=== PATIENT | male | born 1955 | race Caucasian/White ===

== ENCOUNTER → 2016-09-03 | Outpatient (CLI) | payer OTHER ==
[2016-09-03 05:55] LABS: BASOPHILS # (AUTO) 0.07 10*3/UL; BASOPHILS % (AUTO) 1.7 % (0-1); EOSINOPHILS % (AUTO) 6.1 % (0-8); HEMATOCRIT 37.7 % (42.0-52.0); HEMOGLOBIN 11.6 g/dL (14.0-18.0); IMM GRAN % (AUTO) 0.7 % (0-5); IMM GRAN# (AUTO) 0.03 10*3/UL; LYMPHOCYTES # (AUTO) 0.99 10*3/uL; LYMPHOCYTES % (AUTO) 23.4 % (10-50); MEAN CORPUSCULAR HEMOGLOBIN 23.3 PG (27-31); MEAN CORPUSCULAR HGB CONC 30.8 g/dL (33-37); MEAN PLATELET VOLUME 8.8 FL (7.4-12.2); MONOCYTES # (AUTO) 0.52 10*3/UL (0.3-0.8); MONOCYTES % (AUTO) 12.3 % (5-15); NEUTROPHILS # (AUTO) 2.36 10*3/UL; NEUTROPHILS % (AUTO) 55.8 % (50-80); RDW COEFFICIENT OF VARIATION 17.7 % (11.5-14.5); RED BLOOD COUNT 4.97 10^6/uL (4.70-6.10); WHITE BLOOD COUNT 4.23 10^3/uL (4.8-10.8)
[2016-09-03 06:07] LABS: ASPARTATE AMINO TRANSFERASE 21 IU/L (21-57); BILIRUBIN,TOTAL 0.5 mg/dL (0.3-1.2); BLOOD UREA NITROGEN 18 mg/dL (7-22); CALCIUM 8.1 mg/dL (8.7-10.7); CHLORIDE 103 meq/L (98-112); CREATININE 0.6 mg/dL (0.70-1.50); EST GLOMERULAR FILTRATION > 60 (>60 ml/min/1.73m(2)); GLUCOSE 80 mg/dL (78-110); HDL CHOLESTEROL 23 mg/dL (40-150); SODIUM 135 meq/L (135-145); TOTAL PROTEIN 5.6 g/dL (6.1-8.0); TRIGLYCERIDES 103 mg/dL (44-200)
[2016-09-03 06:08] LABS: HEMOGLOBIN A1C 4.15 % (4.2-6.0); MEAN BLOOD GLUCOSE (CALC) 52.195 mg/dL
[2016-09-03 06:09] LABS: PLATELET MORPHOLOGY COMMENT NORMAL MORPHOLOGY (NORM)
[2016-09-03 06:14] LABS: RETICULOCYTE PERCENT 2.8 % (0.77-2.36)
[2016-09-03 08:38] LABS: PERCENT IRON SATURATION 14.1 % (14-50)
== END ==
LOC: LAB 05:38
PROVIDERS: ATTEND Internal Medicine
DX: D59.4 Other nonautoimmune hemolytic anemias (principal); E11.9 Type 2 diabetes mellitus without complications; R56.9 Unspecified convulsions; E78.5 Hyperlipidemia, unspecified
CPT/HCPCS: 36415; 80053; 80061; 80177; 82728; 83010; 83036; 83540; 83550; 85025; 85045

== ENCOUNTER → 2016-09-05 | Outpatient (CLI) | payer OTHER | LOC: MMPC 11:11 | PROVIDERS: ATTEND Internal Medicine | DX: D59.4 Other nonautoimmune hemolytic anemias (principal); R56.9 Unspecified convulsions; E11.9 Type 2 diabetes mellitus without complications; I10 Essential (primary) hypertension | CPT/HCPCS: 99214; G0463 ==

== ENCOUNTER 2017-04-05 10:47 | Observation (INO) ==
[2017-04-05 11:42] LABS: BASOPHILS # (AUTO) 0.06 10*3/UL; BASOPHILS % (AUTO) 1.1 % (0-1); EOSINOPHILS # (AUTO) 0.12 10*3/UL; EOSINOPHILS % (AUTO) 2.2 % (0-8); Hematocrit [HCT] 34.5 % (42.0-52.0); Hemoglobin [HGB] 10.7 g/dL (14.0-18.0); LYMPHOCYTES # (AUTO) 0.91 10*3/uL; MEAN CORPUSCULAR HEMOGLOBIN 23.2 PG (27-31); MEAN CORPUSCULAR VOLUME 74.8 FL (80-90); MEAN PLATELET VOLUME 9.4 FL (7.4-12.2); MONOCYTES % (AUTO) 14.7 % (5-15); NEUTROPHILS # (AUTO) 3.49 10*3/UL; NEUTROPHILS % (AUTO) 64.3 % (50-80); RED BLOOD COUNT 4.61 10^6/uL (4.70-6.10)
[2017-04-05] MEDS ORDERED: NORMAL SALINE 10 ML SYRINGE FLUSH IVP PRN ×2 (11:47→14:11)
[2017-04-05 11:52] LABS: BLOOD UREA NITROGEN 15 mg/dL (7-22)
[2017-04-05 12:01] LABS: PLATELET MORPHOLOGY COMMENT NORMAL MORPHOLOGY (NORM); RBC MORPHOLOGY COMMENT NORMAL MORPHOLOGY (NORM); WBC MORPHOLOGY COMMENT NORMAL MORPHOLOGY (NORM)
[2017-04-05] MEDS: Sodium Chloride 0.9% 1,000 ML PRIMARY IV ONE ×2 (12:25→15:03)
--- NOTE | 2017-04-05 12:59 | DI ---
VENOUS DOPPLER ULTRASOUND OF THE LEFT LOWER EXTREMITY, 04/05/2017 11:41 AM: Clinical History: Increased swelling of the left lower extremity. Previous Exam: None. Technique: 2D real-time imaging is supplemented with color Doppler ultrasound. Compression and augmen tation maneuvers were performed. The deep venous system from the groin to the popliteal fossa is norm al. The greater saphenous vein is normal. There is edema in the subcutaneous fat of the lower leg. Reading: Negative venous Doppler ultrasound of the left lower extremity.
--- NOTE | 2017-04-05 13:40 | DI ---
LEFT FOOT, 04/05/2017 1:01 PM: Clinical History: Left foot pain. Previous Exam: None at this facility. 3 views are submitted. There is no fracture or dislocation. There is osteoporosis. Extensive soft tis igor edema is present along the dorsal aspect of the foot and along the medial aspect of the distal ti sia and fibula and the hindfoot. No soft tissue gas or radiopaque foreign body is identified. Readin. Soft tissue swelling without evidence of a fracture or dislocation. 2. Osteoporosis.
[2017-04-05] MEDS ORDERED: BISACODYL 5 MG TABLET PO PRN (14:11)
[2017-04-05] MEDS ORDERED: LIDOCAINE W/ SODIUM BICARB 0.5 ML SYR SUBD PRN (14:11)
[2017-04-05] MEDS ORDERED: HYDROmorphone 2 MG/1 ML IVP PRN (14:11)
[2017-04-05] MEDS ORDERED: BISACODYL 10 MG SUPPOSITORY RECTAL PRN (14:11)
[2017-04-05] MEDS ORDERED: ONDANSETRON 4 MG/2 ML VIAL IVP PRN (14:11)
[2017-04-05] MEDS ORDERED: Influenza 17-18 Vaccine (6mo+) Quad 60mcg/0.5ml PF IM ONE (14:29)
[2017-04-05] MEDS: ceFAZolin Inj 2 GM in Sodium Chloride 0.9% 100 ML IV SCH ×2 (15:01→23:17)
--- NOTE | 2017-04-05 15:39 | PDOC ---
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 Most likely an initial stages of cellulitis of his extremity. X-ray shows a soft tissue swelling but no bony abnormality. The patient will be admitted for IV antibiotics considering all his comorbidities including Ambien give him being the biggest 1 diabetes Past Medical History Medical History: 1. 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 2. Diabetes mellitus type II. 3. Gout. 4. Hypertension. 5. Hyperlipidemia. 6. Seizure disorder Surgical History: 1. Colonoscopy. 2. Cataract extraction. Pertinent Family History: States that his father passed on due to heart issues. His mother is alive and apparently in the assisted at this time. Past Social History: Quit smoking over a year ago now. Drinks occasional alcohol. Lives alone. No children. Tobacco Use: Current Some Day Smoker In the Past 12 Months, Have Used or Abuse Any of the Following Substance: None Medication / Allergies Home Medications: Home Medications Medication Instructions Recorded Confirmed Type Aspirin [Aspir 81] 81 mg ORAL QD tab 06/19/11 04/05/17 History furosemide 40 mg tablet 40 mg PO BID #60 tab 03/06/17 04/05/17 Rx potassium chloride ER 10 mEq 10 meq PO BID #60 cap 03/06/17 04/05/17 Rx capsule,extended release propranolol 60 mg tablet 60 mg PO BID #180 tab 03/06/17 04/05/17 Rx sulfasalazine 500 mg tablet 1,000 mg PO BID #120 tab 03/06/17 04/05/17 Rx ascorbic acid (vitamin C) 500 mg 500 mg PO QD #90 tab 03/11/17 04/05/17 Rx tablet levetiracetam 500 mg tablet 1,000 mg PO BID #120 tab 03/15/17 04/05/17 Rx ferrous gluconate 324 mg (38 mg 324 mg PO QD #30 tab 03/18/17 04/05/17 Rx iron) tablet omega-3 fatty acids-fish oil 340 1 cap PO DAILY cap 03/18/17 04/05/17 History mg-1,000 mg capsule Allergies/Adverse Reactions: Allergies 3 Allergy/AdvReac Type Severity Reaction Status Date / Time No Known Drug Allergies Allergy NOT Verified 04/05/17 11:25 APPLICABLE Review of Systems - Review of Systems All Systems: Reviewed & No Additional Complaints Except as Stated - Respiratory Respiratory: DENIES: Negative System Review, Cough, Sputum, Dyspnea At Rest, Dyspnea with Exertion, Pleuritic Pain, Hemoptysis, Wheezing, Other, See HPI - Cardiovascular Cardiovascular: DENIES: Negative System Review, Chest Pain, Edema, Syncope, Palpitations, Orthopnea, Paroxysmal Nocturnal Dyspnea, Other, See HPI - Gastrointestinal Gastrointestinal / Abdominal: DENIES: Negative System Review, Nausea, Vomiting, Diarrhea, Constipation, Abdominal Pain, Bloody Stool, Poor Appetite, Heartburn, Regurgitation, Bloating, Lactose Intolerance, Melena, Bright Red Blood per Rectum, Other, See HPI - Musculoskeletal Musculoskeletal: REPORTS: Other (Left lower extremity swelling painful) Exam - Vitals Vital Signs: Vital Signs Temperature 97.6 F Temperature Source Temporal Artery Scan Pulse Rate [Pulse Oximeter 79 Right] Pulse Rate 77 Respiratory Rate 18 Blood Pressure [Left Arm] 113/66 Blood Pressure 126/69 Pulse Ox 95 Oxygen Delivery Method Room Air Height 5 ft 7 in Weight 143 lb - General General Appearance: No Acute Distress, Cooperative - Head Head Exam: Normal Inspection - Eye Eye Exam: POSITIVE: Normal Appearance - Neck Neck Exam: Normal Inspection - Respiratory Respiratory Exam: POSITIVE: Clear to Auscultation - Bilaterally, Breathing Non Labored, Normal To Percussion - Cardiovascular Cardiovascular Exam: POSITIVE: RRR, No Murmur, No Gallops - GI/Abdominal GI/Abdominal Exam: POSITIVE: Non Tender, Non Distended, Soft - Extremities Additional Extremities Exam Details: Positive edema left lower extremity sensitive to touch no DVT - Neurological Neurological Exam: POSITIVE: Alert, Oriented x 3 - Psychiatric Psychiatric Exam: POSITIVE: Normal Affect, Normal Mood Results - Labs CBC and BMP: 04/05/17 11:41 04/05/17 11:41 Assessment and Plan - Patient Problems (1) Cellulitis of left lower extremity Current Visit: Yes Status: Acute Comment: We will start Ancef 2 g IV every 8 check labs in the morning. 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
--- NOTE | 2017-04-05 15:46 | PDOC ---
Lower Extremity Problem HPI - General Chief Complaint: Lower Extremity Problem/Injury Stated Complaint: lower extremety swelling Date Seen by Provider: 04/05/17 Time Seen by Provider: 11:00 Source: POSITIVE: Patient, EMS Exam Limitations: POSITIVE: No limitations Nurse's Notes Reviewed & Considered: Yes EMS Report Reviewed & Considered: Verbal - History of Present Illness Initial Comments: The patient is a 61-year-old male. He is brought to the emergency room by ambulance. Patient states that for the past 2 days he has had progressive pain and swelling to the left lower extremity. He states that for the past 2 days he has not been able to ambulate without supporting himself with a chair due to pain in his left lower leg. Patient lives alone. He called a caregiver that he occasionally sees at the [facility], apparently, who called the ambulance to bring him to the emergency room. Patient denies any falls or trauma. Patient states he had a stroke, apparently a intracranial hemorrhage, at age 14 or 15 which has left him with right-sided weakness and muscle contractions. His right lower extremity distal to the knee, especially over the ankle and the lateral aspect of his left foot is painful and warm. Body Location Affected: REPORTS: Lower Extremity (L) Timing: REPORTS: Gradual, Getting Worse Duration: >24 hours (Approximately 2 days) Severity: Moderate Recent Injury: REPORTS: No Context of Injury: DENIES: Fall, Twist, Direct Blow, Incision, Burn, Crush, Stab , Prolonged Pressure on Ext, Other Location at Time of Onset: REPORTS: Home Quality: REPORTS: Aching, "Pain", Tenderness Modifying Factors: REPORTS: Walking (Walking exacerbates pain, as above, as does palpation of the lateral aspect of the distal portion of his left lower leg ) Associated Symptoms: DENIES: Chest Pain, Shortness of Breath, Rapid Heart Rate, Fainting, Other Similar Symptoms Previously: No Recent Care Received: REPORTS: Denies Any Prior Injuries Related to Current Complaint?: No - Patient Home Medications Home Medications: Home Medications Aspirin [Aspir 81] 81 mg ORAL QD tab 06/19/11 furosemide 40 mg tablet 40 mg PO BID #60 tab 03/06/17 potassium chloride ER 10 mEq capsule,extended release 10 meq PO BID #60 cap 12/15 propranolol 60 mg tablet 60 mg PO BID #180 tab 03/06/17 sulfasalazine 500 mg tablet 1,000 mg PO BID #120 tab 03/06/17 ascorbic acid (vitamin C) 500 mg tablet 500 mg PO QD #90 tab 03/11/17 levetiracetam 500 mg tablet 1,000 mg PO BID #120 tab 03/15/17 ferrous gluconate 324 mg (38 mg iron) tablet 324 mg PO QD #30 tab 03/18/17 omega-3 fatty acids-fish oil 340 mg-1,000 mg capsule 1 cap PO DAILY cap - Patient Allergies Allergies/Adverse Reactions: Allergies 3 Allergy/AdvReac Type Severity Reaction Status Date / Time No Known Drug Allergies Allergy NOT Verified 04/05/17 11:25 APPLICABLE Past Medical History - heen HEENT History: Cataracts Additional HEENT History: RIGHT CATARACT SURGERY Cardiovascular History: Hypertension, Hyperlipidemia Additional Cardiovasular History: NOTED HYPOTENSIVE AT 02/[address] GONZALEZ. SEE COPY OF NOTE FROM DR GONZALEZ FOR MED ADJUSTMENT Respiratory History: Denies History Gastrointestinal History: Denies History Additional Gastrointestinal History: DIARRHEA/OVERWEIGHT Genitourinary History: Denies History Endocrine History: Type 2 Diabetes (oral) Musculoskeletal History: Gout, Limited ROM, Other (please comment) Prosthesis or Implant: No Additional Musculoskeletal History: LOWER EXTREMETY SWELLING Neurological History: CVA, Seizures Additional Neurological History: LATE EFFECTS OF CEREBROVASCULAR DISEASE Blood Disorders: Denies History Psychiatric History: Denies History History of Sexually Transmitted Diseases: No Cancer History: Denies History In Past Year Been Physically Harmed or Verbally Threatened: No History of MDRO: No History of Other Communicable Diseases: No Tobacco Use: Current Some Day Smoker Alcohol Use: None In the Past 12 Months, Have Used or Abuse Any Substance: None Previous Surgical History: Yes Type / Date of Surgery: R GREAT TOENAIL REMOVED X2 Anesthesia Reactions: No Malignant Hyperthermia: No Significant Family History: Heart disease, Cancer, Diabetes, Hypertension Past Medical History Reviewed: Reviewed - No Changes ROS - Limitations ROS Limitations: No Limitations Constitution: REPORTS: Denies Symptoms Cardiovascular: REPORTS: Denies Cardiac Symptoms Respiratory: REPORTS: Denies Resp Symptoms Neurological: REPORTS: Weakness (Right hemiplegia due to a "stroke" as a teenager) Gastrointestinal: REPORTS: Denies GI Symptoms Endocrine: REPORTS: Denies Symptoms Musculoskeletal: REPORTS: Lower Extremity Swelling (Distal to left knee) Genitourinary: REPORTS: Denies Symptoms Eyes: REPORTS: Denies Symptoms ENT: REPORTS: Denies Symptoms Skin: REPORTS: Denies Skin Symptoms Lympathic: REPORTS: Denies Lympathic Symptoms Immunologic: POSITIVE: Denies Symptoms Psychiatric: POSITIVE: Denies Psych Symptoms Lower Ext Problem Exam - General Appearance General Appearance: POSITIVE: Alert, Cooperative, No Acute Distress, No Evidence of Trauma - Extremities Lower Extremity: POSITIVE: No Pedal Edema (Left), Foot (Especially tender over the lateral aspect of left foot and ankle), Ankle, Tenderness (Distal to left knee), Swelling (Distal to left knee), Other (The skin distal to the left knee is warmer to the touch than the contralateral side and there was some redness over this area.) Joint Exam: POSITIVE: Joints Normal, Normal ROM, Normal Gait, Normal Weight Bearing Vascular: POSITIVE: No Vascular Compromise, Full Pulses, Equal Pulses - Neuro / Psych Neuro/Psych: POSITIVE: Sensation Normal, Motor Normal, Oriented to Person, Oriented to Place, Oriented to Time, 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 Nml, Pharynx Inspect. Nml, PERRL, EOMI - Respiratory / CVS Respiratory / CVS: POSITIVE: No Respiratory Distress, Breath Sounds Normal, Regular Rate/Rhythm, Heart Sounds Normal Peripheral Pulses: Radial (R): 2+, Radial (L): 2+, Popliteal (R): 2+, Popliteal (L): 2+, Dorsalis-pedis (R): 2+, Dorsalis-pedis (L): 2+ - Abdomen Abdomen: Soft: (All Quadrants), Normal Bowel Sounds: (All Quadrants), Denies Tenderness: (All Quadrants), No Splenomegaly: (All Quadrants), No Hepatomegaly: (All Quadrants), No Guarding: (All Quadrants), No Rebound: (All Quadrants), No Palpable Pulse: (All Quadrants), No Palpabale Mass: (All Quadrants), No Distention: (All Quadrants), No Rigidity: (All Quadrants) Images - Uploaded Photos Uploaded Photos: - Lower Extremities Lower Extremities: 1 - Swelling, warmth, redness 2 - Swelling, warmth, redness 3 - Extremity particularly painful on palpation this area. Lower Ext Problem Progress - Results Reviewed by me Xrays/CTs/US Reviewed by me: Yes Discussed with Radiologist: Yes Radiology Findings: X-ray left foot shows no fractures or dislocations by my interpretation; radiologist interpretation pending. Venous duplex ultrasound of left leg read as normal by radiologist. Lab Results Reviewed by Me: Yes (CRP 5.9; BNP 341; CMP normal) CBC and BMP: 04/05/17 11:41 04/05/17 11:41 - Patient's Progress Pain Medication Addressed: POSITIVE: Patient Refused School/Work Release Addressed: POSITIVE: Not Applicable Re-Examine Time: 12:55 Re-Examine Comment: Condition unchanged. Alternatives of treatment discussed with patient. In view of patient's neurologic disabilities and his sketchy social support, was felt best to admit the patient. Status: POSITIVE: Unchanged, Re-Examined - Consult Consult (If Yes, Name of Consulting MD & Time Called): Yes (Dr. Stephens, 1300) Consulting MD will see pt:: POSITIVE: [facility] [place] Admit Counseled: POSITIVE: Patient, RE: Lab Results, RE: Radiology Results, RE: DX, RE : Need for F/U Patient Care Time - Estimated PCT Patient Care Time (In Minutes): 60 Vital Signs - Recent Vital Signs Vital Signs: Vital Signs (Last 8 hours) Temp Pulse Resp BP Pulse Ox 04/05/17 14:15 97.7 F 79 16 113/66 96 04/05/17 10:47 98.1 F 85 16 139/93 98 - VS Reviewed Vital Signs Reviewed: Yes Discharge Clinical Impression: Cellulitis Discharge Disposition: Admit to Inpatient Condition: Stable Date Decision to Admit to Inpatient: 04/05/17 Time Decision to Admit to Inpatient: 13:00
[2017-04-05] MEDS ORDERED: Sodium Chloride 0.9% 1,000 ML ONE (18:29)
[2017-04-05] MEDS: PROPRANOLOL ER 60 MG CAPSULE PO SCH (20:54)
[2017-04-05] MEDS: LevETIRAcetam Tab 500 MG TABLET PO SCH (20:54)
[2017-04-05] MEDS ORDERED: FUROSEMIDE 40 MG TABLET PO SCH (21:00)
[2017-04-05] MEDS: SULFASALAZINE 1000 MG PO SCH (22:06)
[2017-04-06] MEDS ORDERED: Sodium Chloride 0.9% 100 ML IV ONE ×2 (03:52→19:29)
[2017-04-06] MEDS ORDERED: ceFAZolin 1 GM VIAL ONE ×2 (03:57→14:48)
[2017-04-06 04:21] LABS: BASOPHILS # (AUTO) 0.05 10*3/UL; EOSINOPHILS # (AUTO) 0.13 10*3/UL; EOSINOPHILS % (AUTO) 2.7 % (0-8); LYMPHOCYTES # (AUTO) 0.92 10*3/uL; MEAN CORPUSCULAR HEMOGLOBIN 23.6 PG (27-31); MEAN CORPUSCULAR HGB CONC 30.3 g/dL (33-37); MEAN CORPUSCULAR VOLUME 77.8 FL (80-90); MEAN PLATELET VOLUME 9.4 FL (7.4-12.2); MONOCYTES # (AUTO) 0.61 10*3/UL (0.3-0.8); MONOCYTES % (AUTO) 12.7 % (5-15); NEUTROPHILS # (AUTO) 3.06 10*3/UL; NEUTROPHILS % (AUTO) 63.7 % (50-80); RED BLOOD COUNT 4.24 10^6/uL (4.70-6.10)
[2017-04-06 05:30] LABS: BLOOD UREA NITROGEN 16 mg/dL (7-22); SERUM ALBUMIN 2.5 g/dL (3.5-4.8)
[2017-04-06 05:36] LABS: PLATELET MORPHOLOGY COMMENT NORMAL MORPHOLOGY (NORM); RBC MORPHOLOGY COMMENT NORMAL MORPHOLOGY (NORM); WBC MORPHOLOGY COMMENT NORMAL MORPHOLOGY (NORM)
[2017-04-06] MEDS: ceFAZolin Inj 2 GM in Sodium Chloride 0.9% 100 ML IV SCH ×3 (06:11→22:05)
[2017-04-06] MEDS: FUROSEMIDE 40 MG TABLET PO SCH ×2 (07:04→13:16)
--- NOTE | 2017-04-06 08:28 | PDOC(PROG) ---
Interval History: Drastic improvement of his left lower extremity less swelling no pain Objective : Data - Labs CBC and BMP: 04/06/17 04:05 04/06/17 04:05 Objective : Exam - Head Head Exam: Normal Inspection - ENT ENT Exam: Normal Exam - Respiratory Respiratory Exam: Clear to Auscultation - Bilaterally, Breathing Non Labored, Normal To Percussion - Cardiovascular Cardiovascular Exam: RRR, No Murmur, No Clicks - GI/Abdominal GI/Abdominal Exam: Normal Bowel Sounds, Non Distended, Soft - Extremities Additional Extremities Exam Details: Edema dramatically improved maybe trace at this time and left lower extremity Assessment and Plan - Patient Problems (1) Cellulitis of left lower extremity Current Visit: Yes Status: Acute Comment: Continue antibiotics there is dramatic improvement continue IV one more day then may most likely transient position to orals Code(s): L03.116 - Cellulitis of left lower limb (2) Diabetes mellitus, type II Current Visit: No Status: Acute Comment: Stable at present time Code(s): E11.9 - Type 2 diabetes mellitus without complications Qualifiers: Diabetes mellitus complication status: with unspecified complications Diabetes mellitus fci insulin use: without extermination inspector use Qualified Code( s): E11.8 - Type 2 diabetes mellitus with unspecified complications (3) Essential hypertension Current Visit: No Status: Acute Onset Date: 06/10/12 Comment: Continue meds Code(s): I10 - Essential (primary) hypertension (4) Hypokalemia Current Visit: No Status: Acute Comment: This is been replaced Code(s): E87.6 - Hypokalemia
[2017-04-06] MEDS: ENOXAPARIN SODIUM 40 MG/0.4 ML SYRINGE SUBCUT SCH (09:38)
[2017-04-06] MEDS: LevETIRAcetam Tab 500 MG TABLET PO SCH ×2 (09:38→21:14)
[2017-04-06] MEDS: ASPIRIN EC 81 MG TABLET PO SCH (09:38)
[2017-04-06] MEDS: FERROUS GLUCONATE 324 MG TABLET PO SCH (09:38)
[2017-04-06] MEDS: PROPRANOLOL ER 60 MG CAPSULE PO SCH ×2 (09:39→21:14)
[2017-04-06] MEDS: ASCORBIC ACID 500 MG TABLET PO SCH (09:39)
[2017-04-06] MEDS: POTASSIUM CHLORIDE 20 MEQ TAB PO SCH (09:39)
[2017-04-06] MEDS: SULFASALAZINE 1000 MG PO SCH ×2 (09:52→21:16)
[2017-04-07] MEDS ORDERED: Sodium Chloride 0.9% 100 ML IV ONE (04:19)
[2017-04-07] MEDS: ceFAZolin Inj 2 GM in Sodium Chloride 0.9% 100 ML IV SCH (05:30)
[2017-04-07] MEDS: FUROSEMIDE 40 MG TABLET PO SCH ×2 (07:01→13:49)
[2017-04-07] MEDS: ENOXAPARIN SODIUM 40 MG/0.4 ML SYRINGE SUBCUT SCH (08:14)
[2017-04-07] MEDS: FERROUS GLUCONATE 324 MG TABLET PO SCH (08:15)
[2017-04-07] MEDS: ASPIRIN EC 81 MG TABLET PO SCH (08:15)
[2017-04-07] MEDS: PROPRANOLOL ER 60 MG CAPSULE PO SCH (08:15)
[2017-04-07] MEDS: POTASSIUM CHLORIDE 20 MEQ TAB PO SCH (08:15)
[2017-04-07] MEDS: LevETIRAcetam Tab 500 MG TABLET PO SCH (08:15)
[2017-04-07] MEDS: ASCORBIC ACID 500 MG TABLET PO SCH (08:15)
[2017-04-07] MEDS: SULFASALAZINE 1000 MG PO SCH (08:21)
[2017-04-07] MEDS ORDERED: Iron Sucrose Inj 500 MG in Sodium Chloride 0.9% 250 ML IV ONE (11:19)
--- NOTE | 2017-04-07 12:09 | DI ---
LEFT ANKLE, 04/07/2017 11:21 AM: Clinical History: Left ankle cellulitis. Previous Exam: None at this facility. 3 views are submitted. There is soft tissue swelling over the lateral malleolus without evidence of a radiopaque foreign body or soft tissue gas. There is no fracture or dislocation or presence of a elida nt effusion. No periosteal new bone formation is identified to indicate acute osteomyelitis. Readin. Soft tissue swelling over the lateral malleolus without evidence of a radiopaque foreign body or soft tissue gas. There is no periosteal new bone formation to indicate acute osteomyelitis. 2. If further evaluation regarding osteomyelitis is required, then consider a pre-and postcontrast M RI scan of the ankle.
--- NOTE | 2017-04-07 12:58 | DCSUMMARY ---
Hospitalization Summary Admit Date: 04/05/17 Discharge Date: 04/07/17 Primary Diagnosis:: left ankle cellulitis Hospital Course: This very pleasant 61-year-old male that was admitted with a red left foot and ankle, he was placed on Ancef with the thought that this could be cellulitis. It improved very quickly, and x-rays of the foot and ankle were negative. The patient's pain is well controlled and he is not even requiring by mouth medications for pain. Today, he has no chest pain, no shortness breath, no nausea or vomiting, and his ankle pain is controlled and he would like to go home. He is afebrile. His white blood cell count improved significantly on antibiotics. We did find that he had iron deficiency anemia. He had a colonoscopy about 3-1/ 2-4 years ago that was negative at the time but recommendations were to repeat every 5 years. We gave him a dose of IV iron therapy here. Assessment and Plan: 1. As per discharge assessments noted 2. Disposition: Patient is discharged home. 3. Condition on discharge, stable and improved. 4. Diet: regular diet 5. Activities: resume normal activities 6. Follow-Up: 1. See Dr. Leahy in 1 week to reevaluate left ankle cellulitis 2. Surgery in the near future to discuss possibility of repeat colonoscopy. 7. Medications at the Time of Discharge: Home Medications Medication Instructions Recorded Confirmed Type Aspirin [Aspir 81] 81 mg ORAL QD tab 06/19/11 04/05/17 History furosemide 40 mg tablet 40 mg PO BID #60 tab 03/06/17 04/05/17 Rx potassium chloride ER 10 mEq 10 meq PO BID #60 cap 03/06/17 04/05/17 Rx capsule,extended release propranolol 60 mg tablet 60 mg PO BID #180 tab 03/06/17 04/05/17 Rx sulfasalazine 500 mg tablet 1,000 mg PO BID #120 tab 03/06/17 04/05/17 Rx ascorbic acid (vitamin C) 500 mg 500 mg PO QD #90 tab 03/11/17 04/05/17 Rx tablet levetiracetam 500 mg tablet 1,000 mg PO BID #120 tab 03/15/17 04/05/17 Rx ferrous gluconate 324 mg (38 mg 324 mg PO QD #30 tab 03/18/17 04/05/17 Rx iron) tablet omega-3 fatty acids-fish oil 340 1 cap PO DAILY cap 03/18/17 04/05/17 History mg-1,000 mg capsule Cephalexin [Keflex] 1,000 mg PO TID #30 cap 04/07/17 Rx 8. Time, care, counseling and coordination of care for this discharge is greater than 30 minutes. Exam - Vitals Vital Signs: Vital Signs Temperature 97.5 F Temperature Source Temporal Artery Scan Pulse Rate [Apical] 72 Pulse Rate [Pulse Oximeter 77 Right] Pulse Rate 77 Respiratory Rate 18 Blood Pressure [Left Arm] 121/76 Blood Pressure 126/69 Pulse Ox 95 Oxygen Delivery Method Room Air Height 5 ft 7 in Weight 152 lb 3.2 oz - General General Appearance: No Acute Distress, Cooperative - Head Head Exam: Normal Inspection, Normocephalic, Atraumatic - Eye Eye Exam: POSITIVE: No Scleral Icterus - Respiratory Respiratory Exam: POSITIVE: Clear to Auscultation - Bilaterally, Breathing Non Labored - Cardiovascular Cardiovascular Exam: POSITIVE: RRR, No Murmur, No Clicks, No Gallops, No Rubs, No JVD - Extremities Extremities Exam: POSITIVE: No Clubbing Present, No Edema Present, No Cyanosis Present Additional Extremities Exam Details: swelling left ankle but erythema is resolved. minimally tender to palpation. patient states much better than on admission - Neurological Neurological Exam: POSITIVE: Alert, Oriented x 3, Speech Intact / Clear Data Perinent Studies: Laboratory Results 04/05/17 04/05/17 04/05/17 Range/Units 11:41 11:41 11:41 WBC 5.43 (4.8-10.8) 10^3/uL RBC 4.61 L (4.70-6.10) 10^6/uL Hgb 10.7 L (14.0-18.0) g/dL Hct 34.5 L (42.0-52.0) % MCV 74.8 L (80-90) FL MCH 23.2 L (27-31) PG MCHC 31.0 L (33-37) g/dL RDW Std Deviation 52.4 H (39-50) fL RDW Coeff of Sergo 19.8 H (11.5-14.5) % Plt Count 303 (140-350) 10*3/uL MPV 9.4 (7.4-12.2) FL Immature Gran % (Auto) 0.9 (0-5) % Neut % (Auto) 64.3 (50-80) % Lymph % (Auto) 16.8 (10-50) % [place] % (Auto) 14.7 (5-15) % Eos % (Auto) 2.2 (0-8) % Baso % (Auto) 1.1 H (0-1) % Immature Gran # (Auto) 0.05 10*3/UL Neut # (Auto) 3.49 10*3/UL Lymph # (Auto) 0.91 10*3/uL [place] # (Auto) 0.80 (0.3-0.8) 10*3/UL Eos # (Auto) 0.12 10*3/UL Baso # (Auto) 0.06 10*3/UL WBC Morphology Comment Normal morphology (NORM) Plt Morphology Comment Normal morphology (NORM) RBC Morph Comment Normal morphology (NORM) PT 10.2 (9.7-11.4) secs INR 0.96 (0.00-5.90) N/A D-Dimer 0.51 (0.00-0.59) mg/L Sodium 137 (135-145) meq/L Potassium 3.4 L (3.8-5.2) meq/L Chloride 100 (98-112) meq/L Carbon Dioxide 28 (23-33) meq/L Anion Gap 9 (5-20) BUN 15 (7-22) mg/dL Creatinine 0.6 L (0.70-1.50) mg/dL Estimated GFR > 60 (>60 ml/min/1.73m(2)) BUN/Creatinine Ratio 25.00 H (6-20) Glucose 87 (78-110) mg/dL Calculated Osmolality 283.0 (267-292) mOsm/kg Lactic Acid (0.70-2.10) MMOL/L Calcium 7.9 L (8.7-10.7) mg/dL Iron (49-181) UG/DL TIBC (261-462) ug/dL % Saturation (14-50) % Total Bilirubin 0.7 (0.3-1.2) mg/dL AST 24 (21-57) IU/L ALT 32 (21-72) IU/L Alkaline Phosphatase 99 (38-126) IU/L C-Reactive Protein (0.0-0.9) mg/dL NT-Pro-B Natriuret Pep (0-125) PG/ML Total Protein 5.7 L (6.1-8.0) g/dL Albumin 3.0 L (3.5-4.8) g/dL Globulin 2.7 (2.50-4.10) g/dL Albumin/Globulin Ratio 1.10 L (1.3-2.0) mg/g 04/05/17 04/05/17 04/06/17 Range/Units 11:41 12:12 04:05 WBC 4.81 (4.8-10.8) 10^3/uL RBC 4.24 L (4.70-6.10) 10^6/uL Hgb 10.0 L (14.0-18.0) g/dL Hct 33.0 L (42.0-52.0) % MCV 77.8 L (80-90) FL MCH 23.6 L (27-31) PG MCHC 30.3 L (33-37) g/dL RDW Std Deviation 55.4 H (39-50) fL RDW Coeff of Sergo 20.5 H (11.5-14.5) % Plt Count 239 (140-350) 10*3/uL MPV 9.4 (7.4-12.2) FL Immature Gran % (Auto) 0.8 (0-5) % Neut % (Auto) 63.7 (50-80) % Lymph % (Auto) 19.1 (10-50) % [place] % (Auto) 12.7 (5-15) % Eos % (Auto) 2.7 (0-8) % Baso % (Auto) 1.0 (0-1) % Immature Gran # (Auto) 0.04 10*3/UL Neut # (Auto) 3.06 10*3/UL Lymph # (Auto) 0.92 10*3/uL [place] # (Auto) 0.61 (0.3-0.8) 10*3/UL Eos # (Auto) 0.13 10*3/UL Baso # (Auto) 0.05 10*3/UL WBC Morphology Comment Normal morphology (NORM) Plt Morphology Comment Normal morphology (NORM) RBC Morph Comment Normal morphology (NORM) PT (9.7-11.4) secs INR (0.00-5.90) N/A D-Dimer (0.00-0.59) mg/L Sodium (135-145) meq/L Potassium (3.8-5.2) meq/L Chloride (98-112) meq/L Carbon Dioxide (23-33) meq/L Anion Gap (5-20) BUN (7-22) mg/dL Creatinine (0.70-1.50) mg/dL Estimated GFR (>60 ml/min/1.73m(2)) BUN/Creatinine Ratio (6-20) Glucose (78-110) mg/dL Calculated Osmolality (267-292) mOsm/kg Lactic Acid 0.9 (0.70-2.10) MMOL/L Calcium (8.7-10.7) mg/dL Iron (49-181) UG/DL TIBC (261-462) ug/dL % Saturation (14-50) % Total Bilirubin (0.3-1.2) mg/dL AST (21-57) IU/L ALT (21-72) IU/L Alkaline Phosphatase (38-126) IU/L C-Reactive Protein 5.9 H (0.0-0.9) mg/dL NT-Pro-B Natriuret Pep 341 H (0-125) PG/ML Total Protein (6.1-8.0) g/dL Albumin (3.5-4.8) g/dL Globulin (2.50-4.10) g/dL Albumin/Globulin Ratio (1.3-2.0) mg/g 04/06/17 04/07/17 Range/Units 04:05 08:43 WBC (4.8-10.8) 10^3/uL RBC (4.70-6.10) 10^6/uL Hgb (14.0-18.0) g/dL Hct (42.0-52.0) % MCV (80-90) FL MCH (27-31) PG MCHC (33-37) g/dL RDW Std Deviation (39-50) fL RDW Coeff of Sergo (11.5-14.5) % Plt Count (140-350) 10*3/uL MPV (7.4-12.2) FL Immature Gran % (Auto) (0-5) % Neut % (Auto) (50-80) % Lymph % (Auto) (10-50) % [place] % (Auto) (5-15) % Eos % (Auto) (0-8) % Baso % (Auto) (0-1) % Immature Gran # (Auto) 10*3/UL Neut # (Auto) 10*3/UL Lymph # (Auto) 10*3/uL [place] # (Auto) (0.3-0.8) 10*3/UL Eos # (Auto) 10*3/UL Baso # (Auto) 10*3/UL WBC Morphology Comment (NORM) Plt Morphology Comment (NORM) RBC Morph Comment (NORM) PT (9.7-11.4) secs INR (0.00-5.90) N/A D-Dimer (0.00-0.59) mg/L Sodium 136 (135-145) meq/L Potassium 3.9 (3.8-5.2) meq/L Chloride 109 (98-112) meq/L Carbon Dioxide 22 L (23-33) meq/L Anion Gap 5 (5-20) BUN 16 (7-22) mg/dL Creatinine 0.5 L (0.70-1.50) mg/dL Estimated GFR > 60 (>60 ml/min/1.73m(2)) BUN/Creatinine Ratio 32.00 H (6-20) Glucose 87 (78-110) mg/dL Calculated Osmolality 281.0 (267-292) mOsm/kg Lactic Acid (0.70-2.10) MMOL/L Calcium 7.9 L (8.7-10.7) mg/dL Iron 17 L (49-181) UG/DL TIBC 202 L (261-462) ug/dL % Saturation 8.42 L (14-50) % Total Bilirubin 0.6 (0.3-1.2) mg/dL AST 54 (21-57) IU/L ALT 25 (21-72) IU/L Alkaline Phosphatase 91 (38-126) IU/L C-Reactive Protein (0.0-0.9) mg/dL NT-Pro-B Natriuret Pep (0-125) PG/ML Total Protein 5.0 L (6.1-8.0) g/dL Albumin 2.5 L (3.5-4.8) g/dL Globulin 2.5 (2.50-4.10) g/dL Albumin/Globulin Ratio 1.00 L (1.3-2.0) mg/g [address] [facility] [place] [id number] PH: DD: [phone] FAX: [phone] ~DIAGNOSTIC IMAGING REPORT~ Patient: BRIAN ARTHUR : 1955 Sex: M Age: 61 Exam Name: US Up/Low Ext Veins U/L or Ltd Exam Date: 04/05/17 Report # : [id number] CPT Code: 33333 EMR/MR #: [id number] Ordering: NESTOR CHONG Admiting: Primary: Pawan Leahy MD Attending: Signed VENOUS DOPPLER ULTRASOUND OF THE LEFT LOWER EXTREMITY, 04/05/2017 11:41 AM: Clinical History: Increased swelling of the left lower extremity. Previous Exam: None. Technique: 2D real-time imaging is supplemented with color Doppler ultrasound. Compression and augmentation maneuvers were performed. The deep venous system from the groin to the popliteal fossa is normal. The greater saphenous vein is normal. There is edema in the subcutaneous fat of the lower leg. Reading: Negative venous Doppler ultrasound of the left lower extremity. Dictated By: 04/05/17 1241 BILL JUAREZ MD. Signed By: 04/05/17 1259 BILL JUAREZ MD. [address] [facility]. [facility] [place] [address] PH: DD: [phone] FAX: [phone] ~DIAGNOSTIC IMAGING REPORT~ Patient: BRIAN ARTHUR : 1955 Sex: M Age: 61 Exam Name: XR FOOT COMPLETE MIN 3VW Exam Date: 04/05/17 Report # : [id number] CPT Code: 07078 EMR/MR #: [id number] Ordering: NESTOR CHONG Admiting: JENNA YORK MD. Primary: Pawan Leahy MD Attending: JENNA YORK MD. Signed LEFT FOOT, 04/05/2017 1:01 PM: Clinical History: Left foot pain. Previous Exam: None at this facility. 3 views are submitted. There is no fracture or dislocation. There is osteoporosis. Extensive soft tissue edema is present along the dorsal aspect of the foot and along the medial aspect of the distal tibia and fibula and the hindfoot. No soft tissue gas or radiopaque foreign body is identified. Readin. Soft tissue swelling without evidence of a fracture or dislocation. 2. Osteoporosis. Dictated By: 04/05/17 1322 BILL JUAREZ MD. Signed By: 04/05/17 1340 BILL JUAREZ MD. [address] [facility] [place] [id number] PH: DD: [phone] FAX: [phone] ~DIAGNOSTIC IMAGING REPORT~ Patient: BRIAN ARTHUR : 1955 Sex: M Age: 61 Exam Name: XR ANKLE COMPLETE MIN 3VW Exam Date: 04/07/17 Report # : [id number] CPT Code: 75995 EMR/MR #: [id number] Ordering: RAY GOTTLIEB Admiting: JENNA YORK MD. Primary: Pawan Leahy MD Attending: JENNA YORK MD. Signed LEFT ANKLE, 04/07/2017 11:21 AM: Clinical History: Left ankle cellulitis. Previous Exam: None at this facility. 3 views are submitted. There is soft tissue swelling over the lateral malleolus without evidence of a radiopaque foreign body or soft tissue gas. There is no fracture or dislocation or presence of a joint effusion. No periosteal new bone formation is identified to indicate acute osteomyelitis. Readin. Soft tissue swelling over the lateral malleolus without evidence of a radiopaque foreign body or soft tissue gas. There is no periosteal new bone formation to indicate acute osteomyelitis. 2. If further evaluation regarding osteomyelitis is required, then consider a pre-and postcontrast MRI scan of the ankle. Dictated By: 04/07/17 1202 BILL JUAREZ MD. Signed By: 04/07/17 1209 BILL JUAREZ MD. Microbiology 04/05/17 11:41 Blood Blood Culture - Preliminary NO GROWTH AFTER 48 HOURS 04/05/17 11:41 Blood Blood Culture - Preliminary NO GROWTH AFTER 48 HOURS Patient Problems - Patient Problem List (1) Cellulitis of left lower extremity Current Visit: Yes Status: Acute Code(s): L03.116 - Cellulitis of left lower limb Category: Medical (2) Iron deficiency anemia Current Visit: Yes Status: Acute Code(s): D50.9 - Iron deficiency anemia, unspecified Qualifiers: Iron deficiency anemia type: unspecified iron deficiency Qualified Code(s) : D50.9 - Iron deficiency anemia, unspecified Category: Medical (3) Diabetes mellitus Current Visit: Yes Status: Chronic Qualifiers: Diabetes mellitus type: type 2 Diabetes mellitus complication status: without complication Diabetes mellitus jail insulin use: without intermediate manager use Qualified Code(s): E11.9 - Type 2 diabetes mellitus without complications Category: Medical (4) Essential hypertension Current Visit: Yes Status: Chronic Category: Medical (5) Late effects of cerebrovascular disease Current Visit: Yes Status: Chronic Category: Medical (6) Hyperlipidemia Current Visit: Yes Status: Chronic Qualifiers: Hyperlipidemia type: unspecified Qualified Code(s): E78.5 - Hyperlipidemia , unspecified Category: Medical (7) Seizure disorder Current Visit: Yes Status: Chronic Category: Medical
[2017-04-07] MEDS ORDERED: Influenza 17-18 Vaccine (6mo+) Quad 60mcg/0.5ml PF IM ONE (14:14)
[2017-04-07] MEDS ORDERED: CEPHALEXIN 500 MG CAPSULE PO SCH (15:00)
[2017-04-07 16:43] VITALS: RESP 20
[2017-04-07 17:44] VITALS: BP 119/73; TEMP 98.4; O2SAT 94
[2017-04-08 03:42] LABS: VITAMIN D 25-HYDROXY < 12.8 NG/ML (30-100)
--- NOTE | 2017-04-08 09:09 | PTI REPORT ---
Thank you for the referral of Jossue Garland. He was seen on 04/05/17 for an inpatient evaluation secondary to weakness. SUBJECTIVE: The patient is a 61-year-old male. The patient reports his left lower extremity is still in a lot of pain and that he is tender to touch. He reports that he has experienced significant swelling in the past day and he was brought to the hospital by a staff member at the [facility]. The patient reports that he has a basement but he doesn't go down the stairs to the basement; he mostly stays on the main floor of the house. PAST MEDICAL HISTORY: Past medical history can be found in the patient's medical record. OBJECTIVE FINDINGS: Edema: The patient's left lower extremity has significant swelling in comparison to the right. Bed mobility: The patient was able to perform bed mobility with stand by assist and came to sitting position on edge of bed. Strength: Manual muscle testing demonstrated strength of 2/5 on the right lower extremity. Left lower extremity demonstrated strength of 3+/5. ASSESSMENT: The patient has a fair prognosis secondary to past medical history of stroke as well as weakness and comorbidities. Short-Term Goals: To be met by discharge from inpatient: Patient will be able to ambulate 150 feet with contact guard assist. Patient will demonstrate bilateral lower extremity strength of at least 3/5. Patient will demonstrate proper safety precautions with assistive device. Long-Term Goals: To be met following discharge from inpatient: Patient will be seen by outpatient physical therapy. TREATMENT PLAN: Patient will be seen B.I.D during the week and one time per day over the weekend as an inpatient to address the above goals and objectives. INITIAL TREATMENT: Treatment today consisted of the initial evaluation followed by the patient transferring from supine to sit and sitting edge of bed. Dictated by: ENOCH Mai Supervised by: DEMETRIUS Miles
--- NOTE | 2017-04-08 12:07 | PT AM DAY ---
AM - Physical Therapy S: The patient reports he is feeling a little bit better since starting the IV antibiotics in his left foot, but it is still swollen and has pain with his socks being on as well as the entire surface of his foot being rested on the floor. O: The patient was able to perform bed mobility with stand by assistance with the use of a standard walker, gait belt, and stand by assistance. He performed a stand pivot transfer into the wheelchair and was brought downstairs to therapy where he performed therapeutic exercises and functional activities including NuStep x10 minutes, red theraband upper extremity activities in all planes, sit to stands, and ambulation x100 feet with heel weight-bearing only with walker, gait belt, and contact guard assistance. He also performed unsupported seated red theraband long arc quads, resisted hamstring curls, resisted marching, and isometric hip adduction with the ball. A: Due to the patient's past medical history of his stroke from almost 50 years ago, he does require assistance with right hand gripping activities such as on the NuStep or on the walker, which he is able to do with his left upper extremity. We discussed providing him with his own walker and why a cane would not be safe at this time due to his lack of right hand use from his past stroke. His left ankle does demonstrate Grade III pitting edema but there are no signs of redness or skin breakage at this time. P: Continue seeing patient BID during the week and one time per day over the weekend for transfers, ambulation, and range of motion/strengthening exercises. MTDD
--- NOTE | 2017-04-08 12:57 | PT AM DAY ---
AM - Physical Therapy S: The patient reports no new changes. O: The patient was seen for ambulatory activities, upper extremity strengthening, lower extremity strengthening. We did some cardiovascular activities at a very submaximal threshold as the patient fatigues quite easily. The patient was returned to his room in good shape. A: The patient will continue to benefit from therapy for general strengthening for uppers and lowers and overall cardiovascular activities. P: Continue seeing patient BID during the week and one time per day over the weekend for transfers, ambulation, and range of motion/strengthening exercises. MTDD
== END 2017-04-07 18:32 | disposition home or self-care (01) ==
LOC: MED/SURG 10:47 → ER 10:47
PROVIDERS: ADMIT Internal Medicine; ATTEND Internal Medicine

== ENCOUNTER 2017-06-22 13:50 | Inpatient (IN) ==
[2017-06-22] MEDS ORDERED: ONDANSETRON 4 MG/2 ML VIAL IVP ONE (14:44)
[2017-06-22] MEDS ORDERED: Pantoprazole Inj 40 MG in Normal Saline Flush 10 ML IVP ONE (14:44)
[2017-06-22] MEDS ORDERED: Sodium Chloride 0.9% 1,000 ML PRIMARY IV ONE (14:44)
[2017-06-22] MEDS ORDERED: MORPHINE SULFATE 2 MG/1 ML IVP ONE (14:44)
[2017-06-22] MEDS ORDERED: NORMAL SALINE 10 ML SYRINGE FLUSH IVP PRN ×4 (14:44→20:49)
[2017-06-22 14:59] LABS: BASOPHILS # (AUTO) 0.06 10*3/UL; BASOPHILS % (AUTO) 1.1 % (0-1); EOSINOPHILS # (AUTO) 0.15 10*3/UL; EOSINOPHILS % (AUTO) 2.8 % (0-8); Hematocrit [HCT] 39.2 % (42.0-52.0); LYMPHOCYTES # (AUTO) 1.61 10*3/uL; MEAN CORPUSCULAR HEMOGLOBIN 24.6 PG (27-31); MEAN CORPUSCULAR HGB CONC 30.6 g/dL (33-37); MEAN CORPUSCULAR VOLUME 80.3 FL (80-90); MEAN PLATELET VOLUME 10.2 FL (7.4-12.2); MONOCYTES # (AUTO) 0.94 10*3/UL (0.3-0.8); MONOCYTES % (AUTO) 17.4 % (5-15); NEUTROPHILS # (AUTO) 2.62 10*3/UL; NEUTROPHILS % (AUTO) 48.6 % (50-80); RED BLOOD COUNT 4.88 10^6/uL (4.70-6.10)
[2017-06-22 15:05] LABS: BLOOD UREA NITROGEN 23 mg/dL (7-22); BUN/CREATININE RATIO 38.33 (6-20); LIPASE 66 IU/L (23-300); SERUM ALBUMIN 2.9 g/dL (3.5-4.8)
[2017-06-22 15:12] LABS: PLATELET MORPHOLOGY COMMENT NORMAL MORPHOLOGY (NORM); RBC MORPHOLOGY COMMENT NORMAL MORPHOLOGY (NORM); WBC MORPHOLOGY COMMENT NORMAL MORPHOLOGY (NORM)
--- NOTE | 2017-06-22 16:36 | DI ---
History: Physician Notes: Tech Comments: Exam: XR AAS 3 total images; single upright and 2 supine images include the entire abdomen Comparison: CT 11/08/15 FINDINGS: Multiple dilated loops of small bowel may be related to small bowel obstruction or ileus. The air-fluid levels appear to be even on the upright view although there is relative absence of dilated small bowel in the right lower quadrant and cannot exclude obstructive process. Gas is seen within the transverse colon with possible degree of fecal impaction at the lower sigmoid and rectum. No evidence of free air. IMPRESSION: Multiple dilated loops of small bowel may be related to small bowel obstruction or ileus. The air-fluid levels appear to be even on the upright view although there is relative absence of dilated small bowel in the right lower quadrant and cannot exclude obstructive process. Gas is seen within the transverse colon with possible degree of fecal impaction at the lower sigmoid and rectum. No evidence of free air. [employer] 06/22/17 16:46 Verify Receipt Verified receipt with Dr. Robbie Hernández on 06/22 16:45 (-07:00)
--- NOTE | 2017-06-22 17:59 | DI ---
History: Physician Notes: Tech Comments: Exam: CT ABDOMEN + PELVIS With Contrast 75 cc of Isovue-300 contrast intravenously Comparison: 11/08/2015 FINDINGS: Dilated small bowel containing air-fluid levels leading to a focal transition into collapsed small bowel in the right abdomen with appearance of short to moderate length segment of the collapsed bowel with possible wall thickening, edema. May be reactive, inflammatory, infectious with ischemia not excluded. There is also associated appearance of a somewhat swirling appearance of the mesenteric vessels for example coronal 27 through 42 and a tapered appearance of the mesenteric vein coronal 42 which may be related to small bowel twisting, volvulus, internal hernia not excluded. No free air. Small amount of abdominal pelvic free fluid. Small bilateral pleural effusions. The liver, adrenal glands, kidneys, spleen, pancreas, gallbladder and abdominal aorta appear within limits. Gas is seen within the transverse colon and stool is seen at the sigmoid without distention. Normal caliber appendix without surrounding inflammatory change coronal 51 through 46. IMPRESSION: Dilated small bowel containing air-fluid levels leading to a focal transition into collapsed small bowel in the right abdomen with appearance of short to moderate length segment of the collapsed bowel with possible wall thickening, edema. May be reactive, inflammatory, infectious with ischemia not excluded. There is also associated appearance of a somewhat swirling appearance of the mesenteric vessels for example coronal 27 through 42 and a tapered appearance of the mesenteric vein coronal 42 which may be related to small bowel twisting, volvulus, internal hernia not excluded. No free air. Small amount of abdominal pelvic free fluid. Small bilateral pleural effusions. [employer] 06/22/17 18:10 Verify Receipt Verified receipt with Cary mcdonald, given to Dr. Robbie aHddad on 06/22 18:09 (-07:00)
[2017-06-22] MEDS ORDERED: ONDANSETRON 4 MG/2 ML VIAL IVP PRN (19:04)
[2017-06-22] MEDS ORDERED: LIDOCAINE W/ SODIUM BICARB 0.5 ML SYR SUBD PRN ×2 (19:04→20:18)
[2017-06-22] MEDS ORDERED: MORPHINE SULFATE 2 MG/1 ML IVP PRN (19:07)
--- NOTE | 2017-06-22 19:08 | PDOC ---
HPI - History of Present Illness Date of Service: 06/22/17 Time of Service: 18:30 Chief Complaint: Abdominal pain a few months duration, vomiting the last 2 days History of Present Illness: This is a 61 years old male with medical history significant for history of previous CVA that caused right-sided weakness and some speech difficulty at age 14, diabetes on no medication, gout, hypertension, seizure disorder who came into the hospital with history of abdominal pain he says the pain been going on and off for several months variable intensity felt in the midabdomen to the right mid quadrant doesn't go elsewhere. He did say that he vomited yesterday once and twice a day and he is not been eating and because of all the symptoms he came into the ER. He said he did have a bowel movement today, he his passing some gas. He rates his pain maybe 8 out of 10. He was giving morphine , fluid and had a CT of the abdomen and pelvis which showed small bowel obstruction. He had an NG inserted and he was admitted. Patient is somewhat difficult historian. He denied other symptoms. Past Medical History Medical History: 1. 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 2. Diabetes mellitus type II on no medications. 3. Gout. 4. Hypertension. 5. Hyperlipidemia. 6. Seizure disorder. 7. Admission for cellulitis March 2017. 8. Upper GI study in 2014 showed marked thickening of the mucosal the loops of the distal jejunum and ileum with narrowing of the caliber of the lumen. The lumen had a nodular pattern. The pattern was consistent with Crohn's disease of the adult onset type. Patient is on sulfasalazine but he doesn't know the reason for being on it. Surgical History: 1. Colonoscopy. 2. Cataract extraction. Pertinent Family History: States that his father passed on due to heart issues. His mother is alive and apparently in the pen[facility] at this time. Past Social History: Quit smoking over a year ago now. Drinks occasional alcohol. Lives alone. No children. Tobacco Use: Former Smoker In the Past 12 Months, Have Used or Abuse Any of the Following Substance: Marijuana Alcohol Use: None Medication / Allergies Home Medications: Home Medications Medication Instructions Recorded Confirmed Type Aspirin [Aspir 81] 81 mg ORAL QD tab 06/19/11 06/22/17 History furosemide 40 mg tablet 40 mg PO BID #60 tab 03/06/17 06/22/17 Rx potassium chloride ER 10 mEq 10 meq PO BID #60 cap 03/06/17 06/22/17 Rx capsule,extended release sulfasalazine 500 mg tablet 1,000 mg PO BID #120 tab 03/06/17 06/22/17 Rx ascorbic acid (vitamin C) 500 mg 500 mg PO QD #90 tab 03/11/17 06/22/17 Rx tablet levetiracetam 500 mg tablet 1,000 mg PO BID #120 tab 03/15/17 06/22/17 Rx ferrous gluconate 324 mg (38 mg 324 mg PO QD #30 tab 03/18/17 06/22/17 Rx iron) tablet omega-3 fatty acids-fish oil 340 1 cap PO DAILY cap 03/18/17 06/22/17 History mg-1,000 mg capsule propranolol 60 mg tablet 60 mg PO BID #180 tab 05/17/17 06/22/17 Rx Allergies/Adverse Reactions: Allergies 3 Allergy/AdvReac Type Severity Reaction Status Date / Time No Known Drug Allergies Allergy NOT Verified 06/11/17 15:20 APPLICABLE Review of Systems - Review of Systems All Systems: Reviewed & No Additional Complaints Except as Stated Exam - Vitals Vital Signs: Vital Signs Temperature 98 F Pulse Rate 94 Respiratory Rate 16 Blood Pressure 115/96 Pulse Ox 92 Height 5 ft 7 in Weight 140 lb - General General Appearance: No Acute Distress, Thin Additional General Exam Details: NG tube in place - Head Head Exam: Normal Inspection - Eye Eye Exam: POSITIVE: Normal Appearance - ENT ENT Exam: POSITIVE: Normal Exam - Neck Neck Exam: Normal Inspection - Respiratory Respiratory Exam: POSITIVE: Clear to Auscultation - Bilaterally - Cardiovascular Cardiovascular Exam: POSITIVE: RRR - GI/Abdominal Additional GI/Abdominal Exam Details: Abdomen is distended, there is some minimal tenderness in the mid abdomen and right quadrant. No rebound. It is soft. Bowel sounds at times is difficult to hear at times high-pitched. - Rectal Rectal Exam: POSITIVE: Deferred - External Exam: POSITIVE: Deferred - Extremities Additional Extremities Exam Details: Right-sided weakness. - Back Back Exam: POSITIVE: Normal Inspection - Neurological Neurological Exam: POSITIVE: Alert, Oriented x 3, CN II-XII Intact Additional Neurological Exam Details: Speech is somewhat difficult to understand but may be due to the NG. Right- sided paresis noted - Psychiatric Psychiatric Exam: POSITIVE: Flat Affect - Integumentary Integumentary Exam: POSITIVE: Pallor Results - Labs CBC and BMP: 06/22/17 14:44 06/22/17 14:44 - Imaging Status: Report Reviewed by Me (CT abdomen and pelvis Dilated small bowel containing air-fluid levels leading to a focal transition into collapsed small bowel in the right abdomen with appearance of short to moderate length segment of the collapsed bowel with possible wall thickening, edema. May be reactive, inflammatory, infectious with ischemia not excluded. There is also associated appearance of a somewhat swirling appearance of the mesenteric vessels for example coronal 27 through 42 and a tapered appearance of the mesenteric vein coronal 42 which may be related to small bowel twisting, volvulus, internal hernia not excluded. X-ray abdomen Multiple dilated loops of small bowel may be related to small bowel obstruction or ileus. The air-fluid levels appear to be even on the upright view although there is relative absence of dilated small bowel in the right lower quadrant and cannot exclude obstructive process. ) Assessment and Plan - Patient Problems (1) Small bowel obstruction Current Visit: Yes Status: Acute Comment: CT raises the possibility of small bowel obstruction, no history of previous surgeries. I did discuss the findings with Dr. Regalado he'll see the patient. Meanwhile we'll continue with IV fluid, pain medication, NG suctioning. Repeat his labs in the morning. Code(s): K56.609 - Unspecified intestinal obstruction, unspecified as to partial versus complete obstruction (2) Seizure disorder Current Visit: No Status: Chronic Comment: We'll switch his Keppra from by mouth to IV (3) Hypertension Current Visit: Yes Status: Acute Comment: He is on propranolol, I think will see what his blood pressure like and then will decide whether we put him on metoprolol IV. Code(s): I10 - Essential (primary) hypertension
--- NOTE | 2017-06-22 20:13 | PDOC ---
Abdomen/Flank HPI - General Chief Complaint: Abdomen Pain Stated Complaint: ABDOMINAL PAIN Date Seen by Provider: 06/22/17 Time Seen by Provider: 14:20 Source: POSITIVE: Patient Exam Limitations: POSITIVE: No limitations - History of Present Illness Initial Comments: The patient is a 61-year-old male. He presents to the emergency room complaining of a 2 day history of abdominal discomfort and distention. He's had some vomiting during this time as well. Patient has a history of having had a CVA at age 14 with right hemiplegia. He states he's not had any abdominal surgery. History of hypertension. Patient lives alone. He called the ambulance and paramedics report that the patient was sitting next to a container which contained about 1000 mL of emesis, according to senior copywriter. Body Location Affected: REPORTS: Abdomen Timing: REPORTS: Gradual, Getting Worse Duration: >24 hours (2 days) Severity: Moderate Quality: REPORTS: "Pain" ([id number]; abdominal distention) Abdominal Pain Onset Location: REPORTS: Generalized abdomen Abdominal Pain Radiation: REPORTS: No radiation Context: REPORTS: None Modifying Factors: improves with: Vomiting Associated Symptoms: REPORTS: Vomiting Similar Symptoms Previously: No Recent Care Received: REPORTS: Denies Any Prior Injuries Related to Current Complaint?: No - Patient Home Medications Home Medications: Home Medications Aspirin [Aspir 81] 81 mg ORAL QD tab 06/19/11 furosemide 40 mg tablet 40 mg PO BID #60 tab 03/06/17 potassium chloride ER 10 mEq capsule,extended release 10 meq PO BID #60 cap 12/15 sulfasalazine 500 mg tablet 1,000 mg PO BID #120 tab 03/06/17 ascorbic acid (vitamin C) 500 mg tablet 500 mg PO QD #90 tab 03/11/17 levetiracetam 500 mg tablet 1,000 mg PO BID #120 tab 03/15/17 ferrous gluconate 324 mg (38 mg iron) tablet 324 mg PO QD #30 tab 03/18/17 omega-3 fatty acids-fish oil 340 mg-1,000 mg capsule 1 cap PO DAILY cap propranolol 60 mg tablet 60 mg PO BID #180 tab 05/17/17 - Patient Allergies Allergies/Adverse Reactions: Allergies 3 Allergy/AdvReac Type Severity Reaction Status Date / Time No Known Drug Allergies Allergy NOT Verified 06/11/17 15:20 APPLICABLE Past Medical History - heen HEENT History: Cataracts Additional HEENT History: RIGHT CATARACT SURGERY Cardiovascular History: Hypertension, Hyperlipidemia Additional Cardiovasular History: NOTED HYPOTENSIVE AT 02/[address] GONZALEZ. SEE COPY OF NOTE FROM DR GONZALEZ FOR MED ADJUSTMENT Respiratory History: Denies History Gastrointestinal History: Denies History Additional Gastrointestinal History: DIARRHEA/OVERWEIGHT(hx from ?). very thin 06/22/17 Genitourinary History: Denies History Endocrine History: Type 2 Diabetes (oral) Musculoskeletal History: Gout, Limited ROM, Other (please comment) Prosthesis or Implant: No Additional Musculoskeletal History: LOWER EXTREMETY SWELLING Neurological History: CVA, Seizures Additional Neurological History: LATE EFFECTS OF CEREBROVASCULAR DISEASE. PER MEDICAL POWER OF CRITICAL CARE UNIT MANAGER 06/22/17 PT HAS A STROKE A TEENAGER WHICH LEFT HIM WITH R HEMIPARESIS Blood Disorders: Denies History Psychiatric History: Denies History, Other (please comment) Additional Psychiatric History: 06/22/17 EMS REPORTS THAT CAREGIVER TOLD THEM HE HAS UNDIAGNOSED DEMENTIA. NOT HERE TO VERIFY. SPOKE WITH MEDICAL POA DENIES THIS AND DOESN'T THINK HE HAS History of Sexually Transmitted Diseases: No Cancer History: Denies History In Past Year Been Physically Harmed or Verbally Threatened: No History of MDRO: No History of Other Communicable Diseases: No Tobacco Use: Former Smoker Alcohol Use: None In the Past 12 Months, Have Used or Abuse Any Substance: Marijuana Previous Surgical History: Yes Type / Date of Surgery: R GREAT TOE NAIL REMOVED X2 Anesthesia Reactions: No Malignant Hyperthermia: No Significant Family History: Heart disease, Cancer, Diabetes, Hypertension Past Medical History Reviewed: Reviewed - No Changes ROS - Limitations ROS Limitations: No Limitations Constitution: REPORTS: Denies Symptoms Cardiovascular: REPORTS: Denies Cardiac Symptoms Respiratory: REPORTS: Denies Resp Symptoms Neurological: REPORTS: Weakness (Right hemiplegia due to previous CVA) Gastrointestinal: REPORTS: Abdominal Pain, Nausea, Vomitting Endocrine: REPORTS: Denies Symptoms Musculoskeletal: REPORTS: Denies MS Symptoms Genitourinary: REPORTS: Denies Symptoms Eyes: REPORTS: Denies Symptoms ENT: REPORTS: Denies Symptoms Skin: REPORTS: Denies Skin Symptoms Lympathic: REPORTS: Denies Lympathic Symptoms Immunologic: POSITIVE: Denies Symptoms Psychiatric: POSITIVE: Denies Psych Symptoms Abdominal/Flank Pain PE - General Appearance General Appearance: POSITIVE: Alert, Cooperative, No Evidence of Trauma, Mild Distress - HEENT HEENT: POSITIVE: Head Inspection Nml, Eyes Inspection Nml, Ears Inspection Nml, Nose Inspection Nml, Oral/Dental Inspect. Nml, Pharynx Inspect. Nml, PERRL, EOMI - Neck Neck: POSITIVE: Normal Inspection, No Apparent Injury - Respiratory Respiratory: POSITIVE: No Respiratory Distress, Breath Sounds Normal, Chest Non- Tender - Cardiovascular Cardiovascular: POSITIVE: Regular Rate and Rhythm, Heart Sounds Normal, Equal Pulses, Strong Pulses Peripheral Pulses: Radial (R): 2+, Radial (L): 2+, Dorsalis-pedis (R): 2+, Dorsalis-pedis (L): 2+ - Chest Chest: POSITIVE: Non Tender - Abdomen Abdomen: Soft: (All Quadrants), No Splenomegaly: (All Quadrants), No Hepatomegaly: (All Quadrants), No Guarding: (All Quadrants), No Rebound: (All Quadrants), No Palpable Pulse: (All Quadrants), No Palpabale Mass: (All Quadrants), No Rigidity: (All Quadrants), Distention: (All Quadrants) Additional Abdominal Details: Abdominal examination shows bowel sounds to be active with some rushes and tinkles. Abdomen is distended. Patient has some discomfort on palpation throughout the abdomen, especially the right upper portion. No masses, organomegaly or rebound. - Genital / Rectal Male Genital: POSITIVE: Normal Inspection, Other (No hernias). NEGATIVE: Inguinal Tenderness, Inguinal Swelling - Back Back: POSITIVE: Normal Inspection - Skin Skin: POSITIVE: Intact, Normal For Race, Warm, Dry, No Rash - Extremities Extremity: Non-Tender: (All Extremities), Normal ROM: (All Extremities), Normal Inspection: (All Extremities) - Neurological Neurological: POSITIVE: Oriented X3, wood planer Normal As Tested, Motor Normal, Sensation Normal, 5, 6 - Psychological Psychiatric: POSITIVE: Affect Appropriate, Mood Appropriate Images - Complete Complete: 1 - Abdominal distention and tenderness Abdomen Progress - Results Reviewed by me Xrays/CTs/US Reviewed by me: Yes Discussed with Radiologist: Yes Radiology Findings: Acute abdominal series shows loops of distended small bowel and air-fluid levels. CT scan of the abdomen and pelvis with IV contrast shows small bowel obstruction versus ileus. No free air. Lab Results Reviewed by Me: Yes (UA normal; CMP normal; amylase lipase normal) CBC and BMP: 06/22/17 14:44 06/22/17 14:44 - Patient's Progress Pain Medication Addressed: POSITIVE: Yes (Morphine sulfate) School/Work Release Addressed: POSITIVE: Not Applicable Re-examine Time: 17:00 Re-Examine Comment: Diagnosis discussed with patient. No further vomiting. NG tube ordered. Status: POSITIVE: Improved, Re-Examined - Consult Consult (If Yes, Name of Consulting MD & Time Called): Yes (Dr. Lora, hospitalist and Dr. Regalado, surgeon [id number]) Consulting MD will see pt:: [place] [facility] [place] Counseled: POSITIVE: Patient, RE: Lab Results, RE: Radiology Results, RE: DX, RE : Need for F/U Patient Care Time - Estimated PCT Patient Care Time (In Minutes): 60 Vital Signs - Recent Vital Signs Vital Signs: Vital Signs (Last 8 hours) Temp Pulse Pulse Resp BP BP Pulse Ox 06/22/17 18:26 98 F 94 16 115/96 92 06/22/17 14:29 97.6 F 88 16 145/96 93 06/22/17 14:01 97.6 F 88 16 145/96 93 - VS Reviewed Vital Signs Reviewed: Yes Discharge Clinical Impression: Small bowel obstruction Discharge Disposition: Admit to Inpatient Condition: Good Date Decision to Admit to Inpatient: 06/22/17 Time Decision to Admit to Inpatient: 17:30
[2017-06-22] MEDS ORDERED: MIDAZOLAM 5 MG/1 ML ONE (20:21)
[2017-06-22] MEDS ORDERED: LIDOCAINE W/ SODIUM BICARB 0.5 ML SYR ONE (20:22)
[2017-06-22] MEDS ORDERED: Lactated Ringers 1,000 ML PRIMARY IV ONE (20:22)
[2017-06-22] MEDS ORDERED: fentaNYL Inj 250 MCG/5 ML VIAL ONE (20:22)
[2017-06-22] MEDS ORDERED: Lactated Ringers 1,000 ML PRIMARY IV SCH ×2 (20:30→21:00)
[2017-06-22] MEDS ORDERED: Ertapenem Inj 1 GM in Sodium Chloride 0.9% 100 ML IV SCH (20:30)
[2017-06-22] MEDS ORDERED: PROPOFOL 10 MG/1 ML (200 MG/20 ML) VIAL IV ONE (20:32)
[2017-06-22] MEDS ORDERED: KETAMINE 100 MG/1 ML - 5 ML ONE (20:32)
--- NOTE | 2017-06-22 20:34 | CONSULT ---
Consult Note - Consult Consult Date: 06/22/17 Reason for Consult: PreOp Consulation : General Surgery Requesting Physician: Dr. Boo Hargrove Primary Care Provider: Pawan Leahy MD - History of Present Illness History of Present Illness: The patient is a 61-year-old male who is a very poor historian. He reports 6-9 months of intermittent abdominal distention as well as nausea and vomiting. Apparently he has become more distended over the last several days and had much more vomiting than usual. He had some abdominal pain as well. He is brought to the hospital by ambulance for evaluation. The ambulance crew said he had a container of approximately 1000 mL of emesis next to him when they arrived. His lab work is fairly unremarkable. He is slightly anemic with a hemoglobin of 12 and hematocrit of 39. His white count is normal. Plain x-rays showed markedly dilated small bowel with multiple air-fluid levels. CT scan shows markedly dilated proximal small bowel with a transition point and decompressed distal bowel. There appears to be some mesenteric swirling consistent with a twist or an internal hernia. There is a comment about possible ischemia as well. There is a section of edematous and thick-walled small bowel. Initially the emergency room physician told me there was no focal transition point. He said he did not have a surgical abdomen. The plan was to admit him to the hospitalist service. When the hospitalist saw him and read the final CT report he was concerned and called me to evaluate the patient tonight rather than in the morning which was the original plan. I'm asked to see him for evaluation. Patient had a small bowel follow-through in March 2015. It was felt to represent adult-onset Crohn's disease. He denies a history of Crohn's disease. I see no evidence of pathology reports confirming Crohn's disease. He is on is on Asacol 1000 milligrams twice a day however. In October [address] scan which showed ascites and anasarca. Apparently that resolved. I am unclear of the etiology. Patient had a colonoscopy by report in 2013. He thinks his dad had a history of colon cancer. The patient says he last passed gas 2-3 days ago but did have a bowel movement this morning at approximately 9 AM. He reports that was normal. There was no blood. The patient saw Dr. Buckley in May for iron deficiency anemia. They were planning upper and lower endoscopy but the patient refused. He is scheduled to see me next week for scheduling of an upper and lower endoscopy. He recently saw Dr. Leahy for evaluation as well. Patient apparently had a stroke as a 14-year-old. He has weakness on the right upper extremity greater than the right lower extremity. He walks. He lives independently. He has no family by his report. His father lived in town but in 2011. Review of Systems - Gastrointestinal Gastrointestinal / Abdominal: REPORTS: Nausea, Vomiting, Abdominal Pain, See HPI Past Medical History Medical History: 1. 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 2. Diabetes mellitus type II on no medications. 3. Gout. 4. Hypertension. 5. Hyperlipidemia. 6. Seizure disorder. 7. Admission for cellulitis March 2017. 8. Upper GI study in 2014 showed marked thickening of the mucosal the loops of the distal jejunum and ileum with narrowing of the caliber of the lumen. The lumen had a nodular pattern. The pattern was consistent with Crohn's disease of the adult onset type. Patient is on sulfasalazine but he doesn't know the reason for being on it. Surgical History: 1. Colonoscopy. 2. Cataract extraction. Pertinent Family History: States that his father passed on due to heart issues. His mother is alive and apparently in the [facility] at this time. Past Social History: Quit smoking over a year ago now. Drinks occasional alcohol. Lives alone. No children. Tobacco Use: Former Smoker In the Past 12 Months, Have Used or Abuse Any of the Following Substance: Marijuana Alcohol Use: None Medication / Allergies Home Medications: Home Medications Medication Instructions Recorded Confirmed Type Aspirin [Aspir 81] 81 mg ORAL QD tab 06/19/11 06/22/17 History furosemide 40 mg tablet 40 mg PO BID #60 tab 03/06/17 06/22/17 Rx potassium chloride ER 10 mEq 10 meq PO BID #60 cap 03/06/17 06/22/17 Rx capsule,extended release sulfasalazine 500 mg tablet 1,000 mg PO BID #120 tab 03/06/17 06/22/17 Rx ascorbic acid (vitamin C) 500 mg 500 mg PO QD #90 tab 03/11/17 06/22/17 Rx tablet levetiracetam 500 mg tablet 1,000 mg PO BID #120 tab 03/15/17 06/22/17 Rx ferrous gluconate 324 mg (38 mg 324 mg PO QD #30 tab 03/18/17 06/22/17 Rx iron) tablet omega-3 fatty acids-fish oil 340 1 cap PO DAILY cap 03/18/17 06/22/17 History mg-1,000 mg capsule propranolol 60 mg tablet 60 mg PO BID #180 tab 05/17/17 06/22/17 Rx Allergies/Adverse Reactions: Allergies 3 Allergy/AdvReac Type Severity Reaction Status Date / Time No Known Drug Allergies Allergy NOT Verified 06/11/17 15:20 APPLICABLE Results - Labs CBC and BMP: 06/22/17 14:44 06/22/17 14:44 - Imaging Status: Image Reviewed by Me, Report Reviewed by Me Exam - Vitals Vital Signs: Vital Signs Temperature 98 F Pulse Rate 94 Respiratory Rate 16 Blood Pressure 115/96 Pulse Ox 92 Height 5 ft 7 in Weight 140 lb - General General Appearance: No Acute Distress, Cooperative, Disheveled, Thin (With a distended abdomen.) - Respiratory Respiratory Exam: POSITIVE: Clear to Auscultation - Bilaterally, Breathing Non Labored - Cardiovascular Cardiovascular Exam: POSITIVE: RRR, No Murmur - GI/Abdominal GI/Abdominal Exam: POSITIVE: Soft, Distended, Diminished Bowel Sounds Additional GI/Abdominal Exam Details: The abdomen is distended. It is diffusely tender. There are no obvious masses. No umbilical or inguinal hernias. - Rectal Rectal Exam: POSITIVE: Deferred - Extremities Additional Extremities Exam Details: Right arm is much thinner and weaker than the left. The legs are fairly symmetrical with some mild asymmetry with the left being larger than the right. Assessment and Plan - Patient Problems (1) Small bowel obstruction Current Visit: Yes Status: Acute Priority: High Comment: The patient appears to have a high-grade obstruction with a clear transition point. There is possibly compromised bowel with some swirling of the mesentery. This could represent a volvulus or an internal hernia. It may also be secondary to his Crohn's disease or possible Crohn's disease. At any rate I recommended and he has accepted an exploratory laparotomy with possible small bowel resection with anastomosis and possible temporary ostomy.The procedure has been discussed with the patient in complete yet simple terms including benefits, risks, and alternatives. All questions have been answered. Informed consent has been obtained. Code(s): K56.609 - Unspecified intestinal obstruction, unspecified as to partial versus complete obstruction
[2017-06-22] MEDS ORDERED: LIDOCAINE MPF 2% - 5 ML (20 MG/1 ML) ONE (20:38)
[2017-06-22] MEDS ORDERED: VECURONIUM BROMIDE 10 MG VIAL ONE (20:39)
[2017-06-22] MEDS ORDERED: Sodium Chloride 0.9% vial 10 ML ONE (20:39)
[2017-06-22] MEDS ORDERED: fentaNYL Inj 100 MCG/2 ML VIAL IVP PRN (20:49)
[2017-06-22] MEDS ORDERED: Ondansetron ODT Tab 8 MG TAB PO PRN (20:49)
[2017-06-22] MEDS ORDERED: Prochlorperazine Edisylate Inj 10mg/2ml vial IVP PRN (20:49)
[2017-06-22] MEDS ORDERED: ATROPINE SULFATE 0.4 MG/1 ML VIAL IVP PRN (20:49)
[2017-06-22] MEDS ORDERED: HYDROmorphone 2 MG/1 ML IVP PRN (20:49)
[2017-06-22] MEDS ORDERED: BUPIVACAINE 0.25% W/ EPI - 10 ML VIAL ONE (20:58)
[2017-06-22] MEDS ORDERED: PHENYLEPHRINE 10,000 MCG/1 ML VIAL ONE (22:07)
[2017-06-22] MEDS ORDERED: Hetastarch 6% + NS 500 ML IV ONE ×2 (22:13→22:54)
[2017-06-22] MEDS ORDERED: Lactated Ringers 2,000 ML PRIMARY IV ONE (23:38)
[2017-06-22] MEDS ORDERED: Sodium Chloride 0.9% vial 60 ML ONE (23:39)
[2017-06-22] MEDS ORDERED: BUPivacaine Liposome/PF (Exparel) Inj 20ml vial INFIL ONE (23:39)
[2017-06-22] MEDS ORDERED: Sodium Chloride 0.9% 500 ML ONE (23:41)
[2017-06-22] MEDS ORDERED: NEOSTIGMINE 1 MG/1 ML - 10 ML ONE (23:50)
[2017-06-22] MEDS ORDERED: GLYCOPYRROLATE 0.2 MG/1 ML VIAL ONE (23:50)
--- NOTE | 2017-06-23 00:13 | GEN.OPNOTE ---
Operative Note Surgery Date: 06/22/17 Preoperative Diagnosis: Small bowel obstruction. Inflammatory versus ischemic changes. Postoperative Diagnosis: Small bowel obstruction. Inflammatory process, possibly Crohn's disease. Mesenteric lymphadenopathy. Procedure: Small bowel resection, mid small bowel, with anastomosis. Surgeon: Jossue Regalado MD Metallurgical [employer] Technician: Ryan Buckley MD Anesthesia Provider: Niharika Montez CRNA Anesthesia Type: General Estimated Blood Loss (mL): 500 Fluids: 2200 mL of crystalloid. 1000 mL of Hespan. 1 g of IV Invanz at the start of the procedure. 1 g of IV Tylenol at the end of the procedure. The first unit of packed red blood cells was started in the operating room as was the second unit. The second unit was still running on transfer to PACU. Pathology: The resected small bowel was sent for pathologic analysis. Indications: Patient presented to the emergency room with a history of intermittent abdominal distention and nausea and vomiting. It got worse over the last 48 hours. In the emergency room he had a plain film which looked like a high- grade bowel obstruction. CT scan showed a bowel obstruction with a transition point and thickened and edematous small bowel wall worrisome for ischemic versus inflammatory. He is taken to the operating room for exploration. He carries a diagnosis of inflammatory bowel disease but I am not able to find any pathology reports indicating biopsy-proven inflammatory bowel disease. He did have a small bowel follow-through which was read as consistent with adult-onset Crohn's disease in 2015. Findings: Markedly dilated proximal small bowel. Thickened rigid small bowel with fat wrapping in the mid small bowel. Approximately 2-1/2 feet of bowel was removed. Significant mesenteric lymphadenopathy consistent with inflammatory change. This section of small bowel was adherent to the retroperitoneum. The distal small bowel, colon, liver, gallbladder, and spleen were unremarkable. The appendix was normal. The proximal small bowel was normal other than it was markedly dilated and thickened from chronic obstructive process. Complications: None. Operative Summary: The patient was taken to the operating suite and placed on the operating table in the supine position. Following induction of adequate general anesthetic the abdomen was prepped and draped in a sterile fashion. A surgical timeout was done. A midline incision was made in the periumbilical region. It was eventually extended cephalad. An Gonzalez retractor was placed. The findings were as dictated previously. It was difficult initially to tell if this inflammatory mass could be safely from the retroperitoneum and critical vessels. Some of these adhesions were taken down and became obvious we would be able to excise this section of bowel. The proximal bowel was transected with a linear 75 mm stapling device. The distal small bowel was transected with a 75 mm linear stapling device. The mesentery was taken down by serially clamping, dividing, and ligating the mesenteric vessels until the specimen could be removed. The vessels were clamped and ligated next to the bowel wall to avoid injury to the more proximal vessels. Again there was thick and inflamed mesenteric tissue with large lymph nodes. Several [id number] sutures were placed for hemostasis. The abdomen was irrigated. Hemostasis was assured. Laps were placed in the abdominal cavity. The bowel was placed side to side in preparation for anastomosis. The bowel was anastomosed with an intraluminal 75 mm lineal stapler. The defect created by the stapler was closed transversely with a 60 mm stapler. Several [id number]-go-[id number] sutures were placed at critical stress areas of the anastomosis. The mesenteric defect was closed with 2-0 Vicryl. The anastomosis was widely patent. Hemostasis was assured. Appropriate irrigation was performed. All personnel changed gowns and gloves. The intestinal contents were returned to a relative anatomic position and covered with omentum. Final irrigation was done. The midline fascia was closed with running #1 Vicryl. The subcutaneous tissue was infiltrated with Exparel. The skin was reapproximated with surgical jun followed by an appropriate dressing. The patient tolerated all aspects of the procedure well without complication. He was taken to the recovery room in stable condition. All counts were correct. Because of his preoperative anemia and the intraoperative blood loss he was given 2 units of packed red blood cells in the operating room to be finished in the recovery room.
[2017-06-23] MEDS ORDERED: Acetaminophen 1000mg Inj 1,000 MG/100 ML VIAL IV ONE (00:16)
--- NOTE | 2017-06-23 00:52 | CRNA.PROGR ---
Anesthesia Time - - Start date: 06/22/17 End date: 06/23/17 - Procedure/Recovery Time Anesthesia : Time In: 21:11 Anesthesia : Time Out: 00:17 Anesthesia : Total Time: 186 - Total Anesthesia Time Total Anesthesia Time (minutes): 186 - Other Weight: 63.503 kg Height: 5 ft 7 in Body Mass Index (BMI): 21.9 Physical Status: P3 Anesthesia Type: General Anesthesia : ET (Bowel Obstruction, Seizure disorder, DM)
--- NOTE | 2017-06-23 00:53 | CRNA.PROGR ---
Post Anesthesia Phase II - Post Anesthesia Phase II Patient Stable and Discharged To: Med/Surg Care Assumed By Surgeon: Jossue Regalado MD Temperature: 98 F Pulse Rate: 93 Respiratory Rate: 14 Blood Pressure: 118/83 Pulse Ox: 91 Total Guerrero Score at Discharge: 9 Post Anesthesia Discharge Criteria Met: Yes
--- NOTE | 2017-06-23 00:53 | CRNA.PROGR ---
Anesthesia Recovery Phase I - Post Anesthesia Evaluation Patient's Condition on Arrival in Phase I: Stable Patient's Condition on Arrival in Phase II: Stable Pain Level: 1 (comfortable, Received 2 units RBC'S. 1 Gram acetominophen)
[2017-06-23] MEDS ORDERED: MORPHINE SULFATE 2 MG/1 ML IVP PRN ×2 (01:51→04:37)
[2017-06-23] MEDS ORDERED: D5-1/2NS + 20mEq KCL 1,000 ML PRIMARY IV SCH (01:51)
[2017-06-23] MEDS ORDERED: ONDANSETRON 4 MG/2 ML VIAL IVP PRN ×2 (01:51→04:37)
[2017-06-23] MEDS ORDERED: Acetaminophen 1000mg Inj 1,000 MG/100 ML VIAL IV PRN (01:51)
[2017-06-23] MEDS ORDERED: NORMAL SALINE 10 ML SYRINGE FLUSH IVP PRN ×2 (01:51→04:37)
[2017-06-23] MEDS ORDERED: Sodium Chloride 0.9% 1,000 ML ONE ×2 (03:42→04:19)
[2017-06-23] MEDS ORDERED: Sodium Chloride 0.9% 500 ML IV ONE ×3 (03:52→04:19)
[2017-06-23 03:55] LABS: Hematocrit [HCT] 25.5 % (42.0-52.0); MEAN CORPUSCULAR HEMOGLOBIN 26.1 PG (27-31); MEAN CORPUSCULAR HGB CONC 31.4 g/dL (33-37); MEAN CORPUSCULAR VOLUME 83.1 FL (80-90); MEAN PLATELET VOLUME 9.8 FL (7.4-12.2); RED BLOOD COUNT 3.07 10^6/uL (4.70-6.10)
[2017-06-23] MEDS ORDERED: Sodium Chloride 0.9% 500 ML PRIMARY IV SCH (04:00)
[2017-06-23] MEDS ORDERED: Norepinephrine Drip 8 MG in D5W 250 ML IV SCH (04:37)
[2017-06-23] MEDS ORDERED: Sodium Chloride 0.9% 250 ML IV ONE ×2 (04:48→19:38)
--- NOTE | 2017-06-23 05:02 | PDOC(PROG) ---
Date and Time of Service: 06/23/2017 4:57 AM Interval History: Subjective I was called this morning as the patient blood pressure dropped to 66 systolic. We gave him fluid boluses and we transfer him to the ICU. The patient to his sets his pain is maybe 4 out of 10. Looks. I'll but he does not appear in distress. Denying chest pain or shortness of breath. No nausea. Objective : Data - Labs CBC and BMP: 06/23/17 03:55 06/22/17 14:44 Objective : Exam - General General Appearance: No Acute Distress, Cooperative, Thin - Head Head Exam: Normal Inspection - Eye Eye Exam: Normal Appearance - ENT ENT Exam: Normal Exam - Neck Neck Exam: Normal Inspection - Respiratory Respiratory Exam: Clear to Auscultation - Bilaterally - Cardiovascular Cardiovascular Exam: RRR - GI/Abdominal Additional GI/Abdominal Exam Details: Abdomen is soft, mild distention mild tenderness which is diffuse. Could not hear bowel sounds - Rectal Rectal Exam: Deferred - External Exam: Deferred - Extremities Additional Extremities Exam Details: Unchanged with the right-sided hemiparesis - Neurological Additional Neurological Exam Details: Sleepy but arousable not in distress. Follow commands. - Psychiatric Psychiatric Exam: Flat Affect - Integumentary Integumentary Exam: Pallor Assessment and Plan - Patient Problems (1) Hypotension Current Visit: Yes Status: Acute Comment: Maybe secondary to fluid loss, or bleeding during the surgery. We moved him to the ICU, will give him 2 units of blood. Will use Levophed if necessary. He is on antibiotics. Will repeat hemoglobin post transfusion Code(s): I95.9 - Hypotension, unspecified (2) Small bowel obstruction Current Visit: Yes Status: Acute Priority: High Comment: He is status post surgery continue supportive care. Code(s): K56.609 - Unspecified intestinal obstruction, unspecified as to partial versus complete obstruction (3) Seizure disorder Current Visit: No Status: Chronic Comment: Continue Keppra
--- NOTE | 2017-06-23 07:50 | EKG ---
[address] [address] Measurements Intervals [place] Rate: 119 P: 258 VT: 143 QRS: 57 QRSD: 74 T: 54 QT: 303 QTc: 374 Interpretive Statements SINUS TACHYCARDIA POSSIBLE LEFT ATRIAL ENLARGEMENT ABNORMAL RHYTHM ECG Compared to ECG 11/08/2015 05:18:10 Sinus rhythm no longer present Electronically Signed On 06-23-17 12:53:36 MST by Juwan Sanders [email or web address]
[2017-06-23] MEDS: Pantoprazole Inj 40 MG in Normal Saline Flush 10 ML IVP SCH (08:45)
[2017-06-23] MEDS ORDERED: Pantoprazole Inj 40 MG in Normal Saline Flush 10 ML IVP SCH (09:00)
[2017-06-23] MEDS: Acetaminophen 1000mg Inj 1,000 MG/100 ML VIAL IV PRN ×2 (09:26→17:24)
[2017-06-23 10:11] LABS: BASOPHILS # (AUTO) 0.03 10*3/UL; BASOPHILS % (AUTO) 0.2 % (0-1); EOSINOPHILS # (AUTO) 0.01 10*3/UL; EOSINOPHILS % (AUTO) 0.1 % (0-8); Hematocrit [HCT] 34.7 % (42.0-52.0); Hemoglobin [HGB] 11.3 g/dL (14.0-18.0); LYMPHOCYTES # (AUTO) 1.22 10*3/uL; MEAN CORPUSCULAR HEMOGLOBIN 26.8 PG (27-31); MEAN CORPUSCULAR HGB CONC 32.6 g/dL (33-37); MEAN CORPUSCULAR VOLUME 82.4 FL (80-90); MEAN PLATELET VOLUME 10.1 FL (7.4-12.2); MONOCYTES % (AUTO) 4.8 % (5-15); NEUTROPHILS # (AUTO) 16.33 10*3/UL; NEUTROPHILS % (AUTO) 87.4 % (50-80); RED BLOOD COUNT 4.21 10^6/uL (4.70-6.10)
[2017-06-23 10:17] LABS: BLOOD UREA NITROGEN 23 mg/dL (7-22); BUN/CREATININE RATIO 25.55 (6-20); SERUM ALBUMIN 1.2 g/dL (3.5-4.8)
[2017-06-23 10:19] LABS: PLATELET MORPHOLOGY COMMENT NORMAL MORPHOLOGY (NORM); RBC MORPHOLOGY COMMENT NORMAL MORPHOLOGY (NORM); WBC MORPHOLOGY COMMENT NORMAL MORPHOLOGY (NORM)
[2017-06-23] MEDS ORDERED: Albumin Human Soln 25% 25 GM/100 ML IV.SOLN IV ONE (11:01)
--- NOTE | 2017-06-23 11:35 | PDOC(PROG) ---
Subjective Post Op Day: .5 Pain Management: IV morphine Tolentino Catheter: Yes Flatus: No Diet: NPO Ambulating: No Date and Time of Service: 05/24/2017 patient seen at 11 AM. Interval History: Patient dropped his blood pressure during the night. He was treated by the hospitalist. He has some fluid boluses as well as 2 units of packed red blood cells. He is also getting 2 units of fresh frozen plasma. He was started on a Levophed drip. He is starting to taper off of the levophed drip. His urine output remains low. His hemoglobin and hematocrit on April 06 were 10 and 33 respectively. He arrived at the hospital yesterday with a hemoglobin and hematocrit of 12 and 39. He was very dehydrated with very dark urine. I think the amount of blood he has received so far is appropriate considering his preoperative anemia and his intraoperative blood loss. I think he is still dry. There is no evidence of ongoing bleeding. His abdomen is soft and nondistended. His most recent hemoglobin and hematocrit were 11.3 and 34.7 respectively. His coags are okay. Surgical findings were discussed with the patient. He reports he feels better and would like to have the NG tube out. His only complaint is some mild incisional pain. He has not passed any gas or had a bowel movement. He denies nausea. Objective : Data - Labs CBC and BMP: 06/23/17 10:00 06/23/17 10:00 - Vital Signs Vital Signs and I&O: Vital Signs - Last Taken Temperature 98.0 F 06/23/17 11:13 Pulse Rate 116 H 06/23/17 11:13 Respiratory Rate 22 06/23/17 11:13 Blood Pressure 97/76 06/23/17 11:13 Pulse Ox 95 06/23/17 11:13 Intake and Output (24hr x 4 totals) 06/21/17 06/22/17 06/23/17 06/24/17 05:59 05:59 05:59 05:59 Intake Total 4650 / 4650 1546 / 1546 Output Total 750 / 750 50 / 50 Balance 3900 / 3900 1496 / 1496 Objective : Exam - General General Appearance: No Acute Distress, Cooperative - Respiratory Respiratory Exam: Clear to Auscultation - Bilaterally, Breathing Non Labored - Cardiovascular Cardiovascular Exam: RRR, No Murmur - GI/Abdominal GI/Abdominal Exam: Non Distended, Soft, Hypoactive Bowel Sounds Additional GI/Abdominal Exam Details: Very few bowel tones. The dressing is clean dry and intact. There is a small spot of dried blood in the center. Incisional tenderness only on exam. No evidence of intra-abdominal bleeding. - Rectal Rectal Exam: Deferred - Neurological Additional Neurological Exam Details: Awaken seasonally. Affect is the same as preop. Assessment and Plan - Patient Problems (1) Small bowel obstruction Current Visit: Yes Status: Acute Priority: High Comment: Status post small bowel resection with primary anastomosis. Surgically stable. The blood and blood products he has been given was appropriate at this time. I believe he is still a little intravascularly volume depleted. We will watch him carefully. Continue postoperative care. Titrate off Levophed drip as soon as possible. We will check labs at 5:00 PM today and again in the morning. We will watch his urine output carefully. No other changes at this time. Code(s): K56.609 - Unspecified intestinal obstruction, unspecified as to partial versus complete obstruction
--- NOTE | 2017-06-23 12:03 | CRNA.PROGR ---
Anesthesia Note - Progress Notes Anesthesia Progress Note: Pt Went to ICU earlier this am. Received more RBC's and vasopressors. He must have been more intravascularly depleted than I judged. There was extensive handling of bowel. Intake and Output (24hr x 4 totals) 06/21/17 06/22/17 06/23/17 06/24/17 05:59 05:59 05:59 05:59 Intake Total 4650 / 4650 1546 / 1546 Output Total 750 / 750 50 / 50 Balance 3900 / 3900 1496 / 1496 Laboratory Results 06/22/17 06/22/17 06/22/17 Range/Units 14:44 14:44 22:40 WBC 5.39 (4.8-10.8) 10^3/uL RBC 4.88 (4.70-6.10) 10^6/uL Hgb 12.0 L (14.0-18.0) g/dL Hct 39.2 L (42.0-52.0) % MCV 80.3 (80-90) FL MCH 24.6 L (27-31) PG MCHC 30.6 L (33-37) g/dL RDW Std Deviation 56.5 H (39-50) fL RDW Coeff of Sergo 19.9 H (11.5-14.5) % Plt Count 349 (140-350) 10*3/uL MPV 10.2 (7.4-12.2) FL Immature Gran % (Auto) 0.2 (0-5) % Neut % (Auto) 48.6 L (50-80) % Lymph % (Auto) 29.9 (10-50) % [place] % (Auto) 17.4 H (5-15) % Eos % (Auto) 2.8 (0-8) % Baso % (Auto) 1.1 H (0-1) % Immature Gran # (Auto) 0.01 10*3/UL Neut # (Auto) 2.62 10*3/UL Lymph # (Auto) 1.61 10*3/uL [place] # (Auto) 0.94 H (0.3-0.8) 10*3/UL Eos # (Auto) 0.15 10*3/UL Baso # (Auto) 0.06 10*3/UL WBC Morphology Comment Normal morphology (NORM) Plt Morphology Comment Normal morphology (NORM) RBC Morph Comment Normal morphology (NORM) PT (9.7-11.4) secs INR (0.00-5.90) N/A APTT (22.6-36.2) SECS Sodium 136 (135-145) meq/L Potassium 4.2 (3.8-5.2) meq/L Chloride 98 (98-112) meq/L Carbon Dioxide 28 (23-33) meq/L Anion Gap 10 (5-20) BUN 23 H (7-22) mg/dL Creatinine 0.6 L (0.70-1.50) mg/dL Estimated GFR > 60 (>60 ml/min/1.73m(2)) BUN/Creatinine Ratio 38.33 H (6-20) Glucose 98 (78-110) mg/dL Calculated Osmolality 285.0 (267-292) mOsm/kg Calcium 8.2 L (8.7-10.7) mg/dL Total Bilirubin 0.7 (0.3-1.2) mg/dL AST 62 H (21-57) IU/L ALT 23 (21-72) IU/L Alkaline Phosphatase 128 H (38-126) IU/L Troponin I (< 0.040) ng/mL Total Protein 5.7 L (6.1-8.0) g/dL Albumin 2.9 L (3.5-4.8) g/dL Globulin 2.8 (2.50-4.10) g/dL Albumin/Globulin Ratio 1.00 L (1.3-2.0) mg/g Amylase < 30 L (30-110) U/L Lipase 66 (23-300) IU/L Blood Type O NEGATIVE Antibody Screen Negative Crossmatch See Detail 06/23/17 06/23/17 06/23/17 Range/Units 03:55 04:42 10:00 WBC 10.21 18.67 H (4.8-10.8) 10^3/uL RBC 3.07 L 4.21 L (4.70-6.10) 10^6/uL Hgb 8.0 L 11.3 L (14.0-18.0) g/dL Hct 25.5 L 34.7 L (42.0-52.0) % MCV 83.1 82.4 (80-90) FL MCH 26.1 L 26.8 L (27-31) PG MCHC 31.4 L 32.6 L (33-37) g/dL RDW Std Deviation 53.4 H 50.6 H (39-50) fL RDW Coeff of Sergo 18.1 H 17.4 H (11.5-14.5) % Plt Count 273 333 (140-350) 10*3/uL MPV 9.8 10.1 (7.4-12.2) FL Immature Gran % (Auto) 1.0 (0-5) % Neut % (Auto) 87.4 H (50-80) % Lymph % (Auto) 6.5 L (10-50) % [place] % (Auto) 4.8 L (5-15) % Eos % (Auto) 0.1 (0-8) % Baso % (Auto) 0.2 (0-1) % Immature Gran # (Auto) 0.18 10*3/UL Neut # (Auto) 16.33 10*3/UL Lymph # (Auto) 1.22 10*3/uL [place] # (Auto) 0.90 H (0.3-0.8) 10*3/UL Eos # (Auto) 0.01 10*3/UL Baso # (Auto) 0.03 10*3/UL WBC Morphology Comment Normal morphology (NORM) Plt Morphology Comment Normal morphology (NORM) RBC Morph Comment Normal morphology (NORM) PT (9.7-11.4) secs INR (0.00-5.90) N/A APTT (22.6-36.2) SECS Sodium (135-145) meq/L Potassium (3.8-5.2) meq/L Chloride (98-112) meq/L Carbon Dioxide (23-33) meq/L Anion Gap (5-20) BUN (7-22) mg/dL Creatinine (0.70-1.50) mg/dL Estimated GFR (>60 ml/min/1.73m(2)) BUN/Creatinine Ratio (6-20) Glucose (78-110) mg/dL Calculated Osmolality (267-292) mOsm/kg Calcium (8.7-10.7) mg/dL Total Bilirubin (0.3-1.2) mg/dL AST (21-57) IU/L ALT (21-72) IU/L Alkaline Phosphatase (38-126) IU/L Troponin I (< 0.040) ng/mL Total Protein (6.1-8.0) g/dL Albumin (3.5-4.8) g/dL Globulin (2.50-4.10) g/dL Albumin/Globulin Ratio (1.3-2.0) mg/g Amylase (30-110) U/L Lipase (23-300) IU/L Blood Type O NEGATIVE Antibody Screen Negative Crossmatch See Detail 06/23/17 06/23/17 06/23/17 Range/Units 10:00 10:00 10:00 WBC (4.8-10.8) 10^3/uL RBC (4.70-6.10) 10^6/uL Hgb (14.0-18.0) g/dL Hct (42.0-52.0) % MCV (80-90) FL MCH (27-31) PG MCHC (33-37) g/dL RDW Std Deviation (39-50) fL RDW Coeff of Sergo (11.5-14.5) % Plt Count (140-350) 10*3/uL MPV (7.4-12.2) FL Immature Gran % (Auto) (0-5) % Neut % (Auto) (50-80) % Lymph % (Auto) (10-50) % [place] % (Auto) (5-15) % Eos % (Auto) (0-8) % Baso % (Auto) (0-1) % Immature Gran # (Auto) 10*3/UL Neut # (Auto) 10*3/UL Lymph # (Auto) 10*3/uL [place] # (Auto) (0.3-0.8) 10*3/UL Eos # (Auto) 10*3/UL Baso # (Auto) 10*3/UL WBC Morphology Comment (NORM) Plt Morphology Comment (NORM) RBC Morph Comment (NORM) PT 12.7 H (9.7-11.4) secs INR 1.20 (0.00-5.90) N/A APTT 34.7 (22.6-36.2) SECS Sodium 136 (135-145) meq/L Potassium 4.7 (3.8-5.2) meq/L Chloride 110 (98-112) meq/L Carbon Dioxide 20 L (23-33) meq/L Anion Gap 6 (5-20) BUN 23 H (7-22) mg/dL Creatinine 0.9 (0.70-1.50) mg/dL Estimated GFR > 60 (>60 ml/min/1.73m(2)) BUN/Creatinine Ratio 25.55 H (6-20) Glucose 119 H (78-110) mg/dL Calculated Osmolality 286.0 (267-292) mOsm/kg Calcium 6.4 L (8.7-10.7) mg/dL Total Bilirubin 0.6 (0.3-1.2) mg/dL AST 17 L (21-57) IU/L ALT 29 (21-72) IU/L Alkaline Phosphatase 48 (38-126) IU/L Troponin I < 0.012 (< 0.040) ng/mL Total Protein 2.6 L (6.1-8.0) g/dL Albumin 1.2 L (3.5-4.8) g/dL Globulin 1.4 L (2.50-4.10) g/dL Albumin/Globulin Ratio 0.80 L (1.3-2.0) mg/g Amylase (30-110) U/L Lipase (23-300) IU/L Blood Type Antibody Screen Crossmatch Vital Signs - Last Taken Temperature 97.9 F 06/23/17 11:54 Pulse Rate 112 H 06/23/17 11:54 Respiratory Rate 15 06/23/17 11:54 Blood Pressure 104/73 06/23/17 11:54 Pulse Ox 96 06/23/17 11:54 This afternoon cheerful awake. Vasopressors off. Urine output climbing Appears to be on doing okay at this point in post operative course.
[2017-06-23 17:08] LABS: Hematocrit [HCT] 25.2 % (42.0-52.0); Hemoglobin [HGB] 8.1 g/dL (14.0-18.0); MEAN CORPUSCULAR HGB CONC 32.1 g/dL (33-37); MEAN PLATELET VOLUME 9.4 FL (7.4-12.2)
[2017-06-23 17:15] LABS: PLATELET MORPHOLOGY COMMENT NORMAL MORPHOLOGY (NORM); RBC MORPHOLOGY COMMENT NORMAL MORPHOLOGY (NORM); WBC MORPHOLOGY COMMENT NORMAL MORPHOLOGY (NORM)
[2017-06-23 17:17] LABS: BLOOD UREA NITROGEN 24 mg/dL (7-22); BUN/CREATININE RATIO 21.81 (6-20)
[2017-06-23 17:27] LABS: BAND NEUTROPHILS % 16 % (0-10); BASOPHILS % (MANUAL) 0 % (0-1); EOSINOPHILS % (MANUAL) 0 % (0-8); METAMYELOCYTES % 0 %; MONOCYTES % (MANUAL) 2 % (0-12); MYELOCYTES % 0 %; NEUTROPHILS % (MANUAL) 72 % (50-80); PROMYELOCYTES % 0 %
[2017-06-23] MEDS ORDERED: Lactated Ringers 1,000 ML PRIMARY IV ONE (19:17)
[2017-06-23] MEDS ORDERED: Sodium Chloride 0.9% 500 ML ONE (19:17)
--- NOTE | 2017-06-23 19:22 | PDOC(PROG) ---
Subjective Post Op Day: .75 Tolentino Catheter: Yes Flatus: No Diet: NPO (With ice chips.) Ambulating: No Date and Time of Service: 05/24/2017 6:45 PM. Interval History: Patient had seemingly done better throughout the day. He is off the Levophed drip. His blood pressure is much improved. His urine output has improved as well. He has remained tachycardic. His hemoglobin and hematocrit at 10 AM were 11.3 and 34.7. At 5 PM his hemoglobin and hematocrit are 8.1 and 25.2 respectively. Both results were rechecked and were nearly identical to the original reports. Both blood draws were from his hand. I came in to evaluate the patient. He seems more distended and more tender. I am worried about an intra-abdominal bleed and have ordered a CT scan abdomen and pelvis with IV contrast. The patient has gotten a lot of fluids. He has a history of ascites and anasarca. His total protein and albumin are very low. I would like to get the CT to help decide whether we need to continue supportive care or need to proceed with exploration for a postoperative bleed. I have discussed all of the above with the patient. The radiologist is supposed to call me with the CT results as soon as possible. In the meantime have ordered 2 units of packed red blood cells to be transfused. His maintenance IV is to be stopped while the blood is transfusing. The CT scan has just been completed. He has a lot of free air and it is more than I would expect for postoperative change. There is an air-fluid level from one side to the other of his abdomen when he is in the supine position. The edge of the liver is seen floating above this fluid level. There is a lot of intraperitoneal fluid as well. Hounsfield units measurement is 17 which is consistent with blood. I do not have an official report. Based on his abdominal exam and my reading of the CT I'm taking him back to the operating room for exploratory laparotomy. I discussed everything with him and he desires to proceed. Objective : Data - Labs CBC and BMP: 06/23/17 17:00 06/23/17 17:00 - Imaging Imaging Details: See history of present illness. - Vital Signs Vital Signs and I&O: Vital Signs - Last Taken Temperature 98.7 F 06/23/17 18:00 Pulse Rate 112 H 06/23/17 18:00 Respiratory Rate 21 06/23/17 18:00 Blood Pressure 107/68 06/23/17 18:00 Pulse Ox 93 06/23/17 18:00 Intake and Output (24hr x 4 totals) 06/21/17 06/22/17 06/23/17 06/24/17 05:59 05:59 05:59 05:59 Intake Total 4650 / 4650 3196 / 3196 Output Total 750 / 750 325 / 325 Balance 3900 / 3900 2871 / 2871 Objective : Exam - General General Appearance: Cooperative, Mild Distress - Respiratory Respiratory Exam: Clear to Auscultation - Bilaterally, Breathing Non Labored - Cardiovascular Cardiovascular Exam: RRR, No Murmur - GI/Abdominal GI/Abdominal Exam: Distended Additional GI/Abdominal Exam Details: More distended and diffusely tender when he was this morning. Abdomen is tympanitic. Assessment and Plan - Patient Problems (1) Small bowel obstruction Current Visit: Yes Status: Acute Priority: High Comment: Status post exploratory laparotomy with small bowel resection and primary anastomosis. There appears to be a postoperative bleed as well as a possible anastomotic leak. Return to the operating room for exploration.The procedure has been discussed with the patient in complete yet simple terms including benefits, risks, and alternatives. All questions have been answered. Informed consent has been obtained. Code(s): K56.609 - Unspecified intestinal obstruction, unspecified as to partial versus complete obstruction
[2017-06-23] MEDS ORDERED: LIDOCAINE W/ SODIUM BICARB 0.5 ML SYR SUBD PRN (19:26)
[2017-06-23] MEDS ORDERED: Ertapenem Inj 1 GM in Sodium Chloride 0.9% 100 ML IV SCH ×3 (19:30→21:00)
[2017-06-23] MEDS ORDERED: Lactated Ringers 1,000 ML PRIMARY IV SCH (19:30)
[2017-06-23] MEDS ORDERED: fentaNYL Inj 250 MCG/5 ML VIAL ONE (19:31)
[2017-06-23] MEDS ORDERED: MIDAZOLAM 5 MG/1 ML ONE (19:32)
[2017-06-23] MEDS ORDERED: LIDOCAINE MPF 2% - 5 ML (20 MG/1 ML) ONE ×2 (19:33→20:08)
[2017-06-23] MEDS ORDERED: ROCURONIUM 10 MG/1 ML - 5 ML VIAL IVP ONE (19:33)
[2017-06-23] MEDS ORDERED: Sodium Chloride 0.9% vial 10 ML ONE (19:33)
[2017-06-23] MEDS ORDERED: KETAMINE 100 MG/1 ML - 5 ML ONE (19:34)
[2017-06-23] MEDS ORDERED: PROPOFOL 10 MG/1 ML (200 MG/20 ML) VIAL IV ONE (19:35)
[2017-06-23] MEDS ORDERED: PHENYLEPHRINE 10,000 MCG/1 ML VIAL ONE (19:38)
--- NOTE | 2017-06-23 19:42 | DI ---
EXAM: CT Abdomen and Pelvis With Intravenous Contrast CLINICAL HISTORY: Physician Notes: radiologist to call Dr. Regalado at [phone]..Tech Comments: with IV contrast.. postoperative anemia, possible postoperative bleed, abd surgery on 06-13-17 at 0900; TECHNIQUE: Axial computed tomography images of the abdomen and pelvis with intravenous contrast. COMPARISON: 06/22/2017 FINDINGS: Lower thorax: Moderate right and small left pleural effusions. ABDOMEN: Liver: Unremarkable. No mass. Gallbladder and bile ducts: Unremarkable. No calcified stones. No ductal dilation. Pancreas: Unremarkable. No mass. No ductal dilation. Spleen: Unremarkable. No splenomegaly. Adrenals: Unremarkable. No mass. Kidneys and ureters: Unremarkable. No solid mass. No hydronephrosis. Stomach and bowel: Multiple areas of bowel wall thickening. There are sites of surgical change on the bowel. . Appendix: Not confidently identified. PELVIS: Bladder: Tolentino catheter in place. Reproductive: Unremarkable as visualized. ABDOMEN and PELVIS: Intraperitoneal space: Large volume of free fluid and free air. Multiple focal areas of hyperattenuation fluid in the mesentery. Heterogeneous hazy appearance around the superior mesenteric vessels and distal branches. Bones/joints: No acute fracture. No dislocation. Soft tissues: Unremarkable. Vasculature: The SMV appears tapered and indistinct. No abdominal aortic aneurysm. Lymph nodes: Unremarkable. No enlarged lymph nodes. Other findings: Prominent volume of stool. IMPRESSION: 1. Large volume of free fluid and free air. Findings suggest viscus/bowel perforation, or leak. 2. Multiple focal areas of hyperattenuation fluid in the mesentery. Heterogeneous hazy appearance around the superior mesenteric vessels and distal branches. Consider bleeding/hemoperitoneum, hyperdense fluid from leakage of enteric contrast, infection. 3. Multiple areas of bowel wall thickening. Question enteritis, inflammatory or postoperative.. 4. The SMV appears tapered and indistinct. Correlate for mesenteric twisting, may be obscured due to presumed blood products. 5. Moderate right and small left pleural effusions. 6. Prominent volume of stool. Query constipation Critical Value Communications 06/23/17 19:32 Call Doctor Regarding Bowel Perforation with Free Air, called Dr. Regalado on 06/23 19:30 (-07:00) 06/23/17 19:32 Call Doctor Regarding Bowel Perforation with Free Air, called Jossue Regalado) @ [phone] (Phone)
[2017-06-23] MEDS ORDERED: NEOSTIGMINE 1 MG/1 ML - 10 ML ONE (21:27)
[2017-06-23] MEDS ORDERED: GLYCOPYRROLATE 0.2 MG/1 ML VIAL ONE (21:28)
--- NOTE | 2017-06-23 22:03 | CRNA.PROGR ---
Anesthesia Time - - Start date: 06/23/17 End date: 06/23/17 - Procedure/Recovery Time Anesthesia : Time In: 20:00 Anesthesia : Time Out: 21:51 Anesthesia : Total Time: 111 - Total Anesthesia Time Total Anesthesia Time (minutes): 111 - Other Weight: 66.281 kg Height: 5 ft 7 in Body Mass Index (BMI): 22.8 Physical Status: P4 (Laparotomy about 20 hours ago. Rebleed) Anesthesia Type: General Anesthesia : ET
--- NOTE | 2017-06-23 22:04 | CRNA.PROGR ---
Anesthesia Recovery Phase I - Post Anesthesia Evaluation Patient's Condition on Arrival in Phase I: Stable Patient's Condition on Arrival in Phase II: Stable Pain Level: 1 (Received 3 units RBC's after Dr Hunter decision to operate at 1900. 1000 ml LR, 500NS, 3units RBC's)
--- NOTE | 2017-06-23 22:05 | CRNA.PROGR ---
Post Anesthesia Phase II - Post Anesthesia Phase II Patient Stable and Discharged To: Med/Surg Care Assumed By Surgeon: Jossue Regalado MD Temperature: 98.5 F Pulse Rate: 95 Respiratory Rate: 14 Blood Pressure: 124/77 Pulse Ox: 100 Total Guerrero Score at Discharge: 9 Additional Details: Back to ICU-stable.
--- NOTE | 2017-06-23 22:14 | GEN.OPNOTE ---
Operative Note Surgery Date: 06/23/17 Preoperative Diagnosis: Postoperative intra-abdominal hemorrhage. Postoperative Diagnosis: postoperative intra-abdominal hemorrhage. It appeared to be his anastomotic staple line with very minimal bleeding from the transected mesentery. Procedure: Reopening of recent laparotomy with control of postoperative bleeding. Surgeon: Jossue Regalado MD Supervisor C[employer] Making Machine: Ryan Buckley MD Anesthesia Provider: Niharika Montez CRNA Anesthesia Type: General Estimated Blood Loss (mL): 1,000 (minimal intraoperative blood loss. Estimated 1000 mL of clot in the abdomen.) Fluids: 1000 mL of crystalloid. The patient got 1 unit of packed red blood cells upstairs when the decision was made to take him to the operating room. He got 2 units of blood intraoperatively. He was given 1 g of IV Invanz at the start of the procedure. Pathology: No specimens for pathologic analysis. Indications: Postoperative decline in his hemoglobin and hematocrit with abdominal distention. CT scan showed findings of extravasation of the IV contrast consistent with postoperative bleeding. He had a large amount of free air as well. Postoperatively this was felt to just be secondary to his rib cage and scaphoid abdomen. There was a lot of free intra-abdominal space. Findings: There was bloody ascitic fluid in the right and left upper quadrant. There is some both gutters and the pelvis. Under the omentum was a large amount of clotted blood, it was near the anastomosis. There is a bleeding area from the anastomotic staple line. There was minimal bleeding from the transected mesentery. The stomach, liver, spleen, gallbladder, entire colon, entire small bowel, and anastomosis were all carefully inspected. There was no evidence of bowel perforation. Complications: No intra-abdominal complications. First operation complicated by postoperative hemorrhage. Operative Summary: The patient was taken to the operating suite and placed on the operating table in the supine position. Following induction of general anesthetic the abdomen was prepped and draped in a sterile fashion. The previously placed jun were removed. A surgical timeout was done. The closing sutures were removed from the fascia. An Gonzalez retractor was placed. Findings as previously dictated. The bloody ascitic fluid was removed. Extensive irrigation and suctioning were performed. I then lifted up the omentum and removed all the clot which was near the anastomosis and the area where the mesentery was transected. Cautery was used to control the bleeder from the staple line. Surgicel was placed on the mesentery and allowed to sit for some time. Extensive irrigation was undertaken. All 4 quadrants of the abdomen were packed. After an appropriate amount of time we inspected all 4 quadrants and remove the packs. There was no other bleeding points identified. The bowel was run including the stomach, small intestine, and colon. There was no evidence of bowel perforation. Attention was turned to the anastomosis. The Surgicel that had been placed was removed. Hemostasis was assured. A figure of 8 suture was placed at one point. Another small area was cauterized. The area was watched for another 5 minutes without evidence of ongoing bleeding. There was also some bleeding from an adhesion from the omentum to the gallbladder. This was controlled with cautery and ligation. The intestinal contents were returned to a relative anatomic position and covered with the omentum. Final irrigation was performed. Final check for hemostasis was done. The midline fascia was closed with running #1 Vicryl. The wound was irrigated and closed with surgical jun followed by an appropriate dressing. The patient tolerated the procedure well without complication. He was taken to the recovery room in stable condition. All counts were correct. His postoperative hemoglobin and hematocrit were 12 and 36. Lab work has been ordered for the morning. Patient was returned to the ICU for overnight monitoring.
[2017-06-24] MEDS: Acetaminophen 1000mg Inj 1,000 MG/100 ML VIAL IV PRN ×2 (01:23→20:41)
[2017-06-24 05:35] LABS: BASOPHILS # (AUTO) 0.02 10*3/UL; BASOPHILS % (AUTO) 0.2 % (0-1); EOSINOPHILS # (AUTO) 0.01 10*3/UL; EOSINOPHILS % (AUTO) 0.1 % (0-8); Hematocrit [HCT] 30.8 % (42.0-52.0); Hemoglobin [HGB] 10.4 g/dL (14.0-18.0); MEAN CORPUSCULAR HEMOGLOBIN 28.3 PG (27-31); MEAN CORPUSCULAR HGB CONC 33.8 g/dL (33-37); MEAN CORPUSCULAR VOLUME 83.7 FL (80-90); MEAN PLATELET VOLUME 10.1 FL (7.4-12.2); MONOCYTES # (AUTO) 0.78 10*3/UL (0.3-0.8); MONOCYTES % (AUTO) 7.3 % (5-15); NEUTROPHILS # (AUTO) 9.05 10*3/UL; NEUTROPHILS % (AUTO) 84.6 % (50-80); RED BLOOD COUNT 3.68 10^6/uL (4.70-6.10)
[2017-06-24 05:48] LABS: BLOOD UREA NITROGEN 23 mg/dL (7-22); BUN/CREATININE RATIO 25.55 (6-20); SERUM ALBUMIN 1.7 g/dL (3.5-4.8)
[2017-06-24 06:05] LABS: PLATELET MORPHOLOGY COMMENT NORMAL MORPHOLOGY (NORM); RBC MORPHOLOGY COMMENT NORMAL MORPHOLOGY (NORM); WBC MORPHOLOGY COMMENT NORMAL MORPHOLOGY (NORM)
[2017-06-24] MEDS ORDERED: Sodium Chloride 0.9% 1,000 ML IV SCH ×2 (08:00→10:34)
--- NOTE | 2017-06-24 08:05 | PDOC(PROG) ---
Date and Time of Service: 06/24/2017 8:04 AM Interval History: Subjective He said he feels better. He is denying abdominal pain. No nausea. No shortness of breath. Did not have a bowel movement yet. Not passing gas yet. He said he's not been eating well the last 9 months and he lost like 30 pounds. He said he just didn't have the appetite. Objective : Data - Labs CBC and BMP: 06/24/17 05:05 06/24/17 05:05 Objective : Exam - General General Appearance: No Acute Distress, Cooperative, Thin - Head Head Exam: Normal Inspection, Atraumatic - Eye Eye Exam: Normal Appearance - ENT ENT Exam: Normal Exam - Neck Neck Exam: Normal Inspection - Respiratory Respiratory Exam: Clear to Auscultation - Bilaterally - Cardiovascular Cardiovascular Exam: RRR - GI/Abdominal GI/Abdominal Exam: Non Distended, Soft Additional GI/Abdominal Exam Details: Bowel sounds very sluggish, abdomen is soft. Some tenderness but minimal diffuse. - Rectal Rectal Exam: Deferred - External Exam: Deferred Exam: Deferred - Extremities Extremities Exam: Normal Inspection - Back Back Exam: Normal Inspection - Neurological Neurological Exam: Alert Additional Neurological Exam Details: Right-sided hemiparesis - Integumentary Integumentary Exam: Normal Color Assessment and Plan - Patient Problems (1) Hypotension Current Visit: Yes Status: Acute Comment: This is resolved. Patient was taking to surgery last night as he continued to drop his hemoglobin and he was found to have bleeding and that's probably the reason for his hypotension. This is resolved. Code(s): I95.9 - Hypotension, unspecified (2) Small bowel obstruction Current Visit: Yes Status: Acute Priority: High Comment: He is status post surgery. Bowel sounds still very sluggish. Think I' ll leave it up to Dr. Regalado to decide about further care. Code(s): K56.609 - Unspecified intestinal obstruction, unspecified as to partial versus complete obstruction (3) Seizure disorder Current Visit: No Status: Chronic Comment: Continue Keppra. (4) Malnutrition Current Visit: Yes Status: Acute Comment: Patient is malnourished, I think we'll start him on peripheral PPN continue with it until he is able to take oral. Code(s): E46 - Unspecified protein-calorie malnutrition
[2017-06-24] MEDS: Pantoprazole Inj 40 MG in Normal Saline Flush 10 ML IVP SCH (08:14)
[2017-06-24] MEDS ORDERED: Sodium Chloride 0.9% 100 ML IV ONE (08:39)
[2017-06-24] MEDS: NORMAL SALINE 10 ML SYRINGE FLUSH IVP PRN (08:43)
[2017-06-24] MEDS: Aa 3%/Electrolyte-Tpn/Gly 1,000 ML PRIMARY IV SCH ×2 (09:33→22:13)
--- NOTE | 2017-06-24 14:13 | PDOC(PROG) ---
Subjective Post Op Day: 1/2 Pain Management: IV Tylenol and morphine Tolentino Catheter: Yes Flatus: No Diet: NPO Ambulating: No Date and Time of Service: 06/24/2017- 2 p.m. Interval History: Overall had a pretty good night. Denies abdominal pain. NG tube is bothering him. Has some mild abdominal soreness but denies any significant pain. No flatus or bowel movement. No nausea or vomiting. Would like steak and baked potato. No other requests at this time. Much brighter and more alert today. Discussed the operative findings regarding both the first and the second operations. Objective : Data - Labs CBC and BMP: 06/24/17 05:05 06/24/17 05:05 - Vital Signs Vital Signs and I&O: Vital Signs - Last Taken Temperature 98.0 F 06/24/17 11:00 Pulse Rate 96 06/24/17 14:00 Respiratory Rate 18 06/24/17 14:00 Blood Pressure 115/60 06/24/17 14:00 Pulse Ox 95 06/24/17 14:00 Intake and Output (24hr x 4 totals) 06/22/17 06/23/17 06/24/17 06/25/17 05:59 05:59 05:59 05:59 Intake Total 4650 / 4650 6070 / 6070 480 / 480 Output Total 750 / 750 1745 / 1745 350 / 350 Balance 3900 / 3900 4325 / 4325 130 / 130 Objective : Exam - General General Appearance: No Acute Distress, Cooperative - Respiratory Respiratory Exam: Clear to Auscultation - Bilaterally, Breathing Non Labored - Cardiovascular Cardiovascular Exam: RRR, No Murmur - GI/Abdominal GI/Abdominal Exam: Non Distended, Soft Additional GI/Abdominal Exam Details: The dressing is clean, dry and intact. Very rare bowel tones. Abdomen is soft. Incisional tenderness only. No distention. No peritoneal signs. - Rectal Rectal Exam: Deferred - Extremities Extremities Exam: No Edema Present - Neurological Neurological Exam: Alert - Psychiatric Psychiatric Exam: Normal Affect, Normal Mood Assessment and Plan - Patient Problems (1) Post-operative hemorrhage Current Visit: Yes Status: Acute Priority: High Onset Date: 06/23/17 Comment: Status post exploratory laparotomy. No evidence of ongoing bleeding. The bleeding was from a staple line at his anastomosis. There is some other very minor bleeding. As usual no significant bleeding at the time of exploration. Qualifiers: Surgical complication system/body Area: digestive system Procedure type: digestive system Qualified Code(s): K91.840 - Postprocedural hemorrhage of a digestive system organ or structure following a digestive system procedure (2) Small bowel obstruction Current Visit: Yes Status: Acute Priority: High Comment: Status post small bowel resection with primary anastomosis. Small bowel obstruction resolved. Anastomosis looked great at exploratory laparotomy. Await return of GI function. Code(s): K56.609 - Unspecified intestinal obstruction, unspecified as to partial versus complete obstruction
[2017-06-24] MEDS: Sodium Chloride 0.9% 1,000 ML IV SCH (14:18)
[2017-06-24 17:21] LABS: BASOPHILS # (AUTO) 0.02 10*3/UL; BASOPHILS % (AUTO) 0.2 % (0-1); EOSINOPHILS # (AUTO) 0.06 10*3/UL; EOSINOPHILS % (AUTO) 0.6 % (0-8); Hemoglobin [HGB] 10.6 g/dL (14.0-18.0); LYMPHOCYTES # (AUTO) 0.77 10*3/uL; MEAN CORPUSCULAR HEMOGLOBIN 28.6 PG (27-31); MEAN CORPUSCULAR HGB CONC 33.1 g/dL (33-37); MEAN CORPUSCULAR VOLUME 86.3 FL (80-90); MEAN PLATELET VOLUME 9.2 FL (7.4-12.2); MONOCYTES # (AUTO) 0.82 10*3/UL (0.3-0.8); MONOCYTES % (AUTO) 8.1 % (5-15); NEUTROPHILS # (AUTO) 8.27 10*3/UL; NEUTROPHILS % (AUTO) 81.4 % (50-80); RED BLOOD COUNT 3.71 10^6/uL (4.70-6.10)
[2017-06-24 17:27] LABS: PLATELET MORPHOLOGY COMMENT NORMAL MORPHOLOGY (NORM); RBC MORPHOLOGY COMMENT NORMAL MORPHOLOGY (NORM); WBC MORPHOLOGY COMMENT SEE COMMENTS (NORM)
[2017-06-24] MEDS ORDERED: Ertapenem Inj 1 GM in Sodium Chloride 0.9% 100 ML IV SCH ×2 (19:30→21:00)
[2017-06-24] MEDS ORDERED: Fat Emulsions Inj 20% 250 ML IV SCH (21:00)
[2017-06-24] MEDS: LEVALBUTEROL HCL 0.63 MG/3 ML NEB PRN (22:35)
[2017-06-25] MEDS: LEVALBUTEROL HCL 0.63 MG/3 ML NEB PRN ×3 (05:10→19:11)
[2017-06-25 05:37] LABS: Hemoglobin [HGB] 10.3 g/dL (14.0-18.0); MEAN CORPUSCULAR HEMOGLOBIN 28.3 PG (27-31); MEAN CORPUSCULAR HGB CONC 32.2 g/dL (33-37); MEAN CORPUSCULAR VOLUME 87.9 FL (80-90); MEAN PLATELET VOLUME 9.5 FL (7.4-12.2); RED BLOOD COUNT 3.64 10^6/uL (4.70-6.10)
[2017-06-25 05:46] LABS: BLOOD UREA NITROGEN 16 mg/dL (7-22)
[2017-06-25 05:56] LABS: PLATELET MORPHOLOGY COMMENT NORMAL MORPHOLOGY (NORM); RBC MORPHOLOGY COMMENT NORMAL MORPHOLOGY (NORM); WBC MORPHOLOGY COMMENT NORMAL MORPHOLOGY (NORM)
[2017-06-25 05:57] LABS: BAND NEUTROPHILS % 0 % (0-10); BASOPHILS % (MANUAL) 0 % (0-1); EOSINOPHILS % (MANUAL) 0 % (0-8); MONOCYTES % (MANUAL) 2 % (0-12); NEUTROPHILS % (MANUAL) 86 % (50-80)
[2017-06-25] MEDS ORDERED: FUROSEMIDE 10 MG/1 ML - 2 ML VIAL IVP ONE (07:05)
--- NOTE | 2017-06-25 07:10 | PDOC(PROG) ---
Date and Time of Service: 01/23/2017 7:12 AM Interval History: Subjective He said he is doing okay. Some mild shortness of breath. Some pain at the incision site. He did not pass gas and no bowel movement yet. Objective : Data - Labs CBC and BMP: 06/25/17 05:00 06/25/17 05:00 Objective : Exam - General General Appearance: No Acute Distress, Cooperative, Thin - Head Head Exam: Normal Inspection, Atraumatic - Eye Eye Exam: Normal Appearance - ENT ENT Exam: Normal Exam - Neck Neck Exam: Normal Inspection - Respiratory Additional Respiratory Exam Details: Decreased breath sound at the right lung base. - Cardiovascular Cardiovascular Exam: RRR - GI/Abdominal Additional GI/Abdominal Exam Details: Abdomen is soft. Some mild tenderness on the sides. I couldn't hear bowel sounds. - Rectal Rectal Exam: Deferred - External Exam: Deferred - Extremities Extremities Exam: Normal Inspection - Back Back Exam: Normal Inspection - Neurological Neurological Exam: Alert, Oriented x 3, CN II-XII Intact Additional Neurological Exam Details: Right-sided hemiparesis old - Psychiatric Psychiatric Exam: Normal Affect - Integumentary Integumentary Exam: Normal Color Assessment and Plan - Patient Problems (1) Hypotension Current Visit: Yes Status: Acute Comment: This is resolved. This was secondary to postoperative bleeding. Hemoglobin is stable. Code(s): I95.9 - Hypotension, unspecified (2) Small bowel obstruction Current Visit: Yes Status: Acute Priority: High Comment: He is status post surgery. He did not have a bowel movement or passed gas yet. Dr. Regalado DC'd his NG yesterday. He put him on ice chips only. Code(s): K56.609 - Unspecified intestinal obstruction, unspecified as to partial versus complete obstruction (3) Seizure disorder Current Visit: No Status: Chronic Comment: Continue Keppra. (4) Malnutrition Current Visit: Yes Status: Acute Comment: We did start him on peripheral nutrition. Continue. We'll discuss it with the dietitian today. Code(s): E46 - Unspecified protein-calorie malnutrition (5) Post-operative hemorrhage Current Visit: Yes Status: Acute Priority: High Onset Date: 06/23/17 Comment: His hemoglobin is stable. Continue watching his counts. Qualifiers: Surgical complication system/body Area: digestive system Procedure type: digestive system Qualified Code(s): K91.840 - Postprocedural hemorrhage of a digestive system organ or structure following a digestive system procedure (6) Shortness of breath Current Visit: Yes Status: Acute Comment: He smokes, there was some wheezing so we put him on bronchodilator continue. Because of the pleural effusion I think will start some Lasix and see whether her blood pressure tolerate and if it does then we'll give him more. Code(s): R06.02 - Shortness of breath (7) DVT prophylaxis Current Visit: Yes Status: Acute Comment: He is on SCD boots continue. We did not put him on Lovenox because of the bleeding that he had. platels is a little bit lower repeated tomorrow. depending on how things look tomorrow and discussion with Dr. Regalado will see what he thinks about pharmacological prophylaxis.
[2017-06-25] MEDS: NORMAL SALINE 10 ML SYRINGE FLUSH IVP PRN (07:19)
[2017-06-25] MEDS: Aa 3%/Electrolyte-Tpn/Gly 1,000 ML PRIMARY IV SCH ×2 (09:36→21:35)
[2017-06-25] MEDS: Pantoprazole Inj 40 MG in Normal Saline Flush 10 ML IVP SCH (09:45)
[2017-06-25] MEDS ORDERED: Acetaminophen 1000mg Inj 1,000 MG/100 ML VIAL IV PRN (14:00)
[2017-06-25] MEDS ORDERED: LIDOCAINE W/ SODIUM BICARB 0.5 ML SYR SUBD PRN (14:00)
[2017-06-25] MEDS ORDERED: ONDANSETRON 4 MG/2 ML VIAL IVP PRN (14:00)
--- NOTE | 2017-06-25 14:06 | PDOC(PROG) ---
Subjective Post Op Day: 2/3 Pain Management: IV Tylenol Tolentino Catheter: Yes Flatus: No Diet: Clear Liquids (4 ounces every 2 hours) Ambulating: Yes Date and Time of Service: 06/25/2017. Patient seen at 8:45 AM as well as 2 PM. Interval History: Feels better. He is hungry. No nausea or vomiting. Minimal abdominal discomfort. He has ambulated. He is tolerating his ice chips. He has no specific complaints. I started him on small amounts of clear liquids earlier today. He is tolerating those without difficulty. Objective : Data - Labs CBC and BMP: 06/25/17 05:00 06/25/17 05:00 - Vital Signs Vital Signs and I&O: Vital Signs - Last Taken Temperature 98.4 F 06/25/17 12:00 Pulse Rate 104 H 06/25/17 12:59 Respiratory Rate 24 06/25/17 12:59 Blood Pressure 117/76 06/25/17 12:00 Pulse Ox 96 06/25/17 12:59 Intake and Output (24hr x 4 totals) 06/23/17 06/24/17 06/25/17 06/26/17 05:59 05:59 05:59 05:59 Intake Total 4650 / 4650 6070 / 6070 3327 / 3327 120 / 120 Output Total 750 / 750 1745 / 1745 1450 / 1450 850 / 850 Balance 3900 / 3900 4325 / 4325 1877 / 1877 -730 / -730 Objective : Exam - General General Appearance: No Acute Distress, Cooperative - Respiratory Respiratory Exam: Clear to Auscultation - Bilaterally, Breathing Non Labored - Cardiovascular Cardiovascular Exam: RRR, No Murmur - GI/Abdominal GI/Abdominal Exam: Non Distended, Soft, Diminished Bowel Sounds Additional GI/Abdominal Exam Details: The dressing is clean dry and intact. His abdomen is soft. There is some mild incisional tenderness. Nondistended. - Neurological Neurological Exam: Alert, Oriented x 3 - Psychiatric Psychiatric Exam: Normal Affect, Normal Mood Assessment and Plan - Patient Problems (1) Post-operative hemorrhage Current Visit: Yes Status: Acute Priority: High Onset Date: 06/23/17 Comment: Resolved after surgical correction. Qualifiers: Surgical complication system/body Area: digestive system Procedure type: digestive system Qualified Code(s): K91.840 - Postprocedural hemorrhage of a digestive system organ or structure following a digestive system procedure (2) Small bowel obstruction Current Visit: Yes Status: Acute Priority: High Comment: Resolved with small bowel resection and primary anastomosis. Seems to be doing well. Started clear liquids today. We'll slowly advance his diet. We 'll discontinue his Tolentino catheter. Probably start Lovenox in the morning at 40 mg IV subcutaneous daily. Continue postoperative care. Discussed the progress with the patient. Code(s): K56.609 - Unspecified intestinal obstruction, unspecified as to partial versus complete obstruction
[2017-06-25] MEDS: Sodium Chloride 0.9% 1,000 ML IV SCH ×2 (15:21→15:32)
--- NOTE | 2017-06-25 16:07 | PTI REPORT ---
Thank you for the referral of Juan Garland (Bill). He was seen on 06/25/17 for an inpatient evaluation secondary to a small bowel resection. SUBJECTIVE: The patient is a 61-year-old male who is in the ICU secondary to a small bowel resection. He has been in the hospital since 06/22/2017 and is just now starting to feel a little better. He states he hasn't done much or gotten out of bed much since that time and his hospitalist wants him to start some movement and strengthening. The patient has a history of an old CVA which does interfere with some of his balance and movement on the left side. PAST MEDICAL HISTORY: Past medical history can be found in the patient's medical record. OBJECTIVE FINDINGS: General observations: The patient was alert and oriented when we saw him in his room. The patient states his incisional area is uncomfortable. Pain: The patient rates his pain as a 2 to 3/10 on the verbal analog scale (0= no pain, 10=worst pain). Bed mobility: With assist of one the patient was able to come from supine to seated. Transfers: The patient was able to transfer from sit to stand with assist of one. Ambulation: With assist of one and a walker, the patient was able to take a couple of steps over to the andrew chair. Historically the patient has walked with a pretty significant gait deviation with weak sided hip abductors and hip extensors as well as dorsiflexion that is weak. Range of motion/Strength: Right upper extremity demonstrates functional range of motion with 3/5 for strength. Left side demonstrates 90 degrees of flexion and abduction with 2/5 for strength. Core strength is poor and unable to be assessed due to recent surgery. Lower extremity on the right side demonstrates functional range of motion of the hip, knee, ankle, and foot. Left side has a toe drop. ASSESSMENT: Weakness due to a recent hospitalization and bowel resection. Problem List: Generalized weakness Decreased ability to perform transfers Decreased ability to ambulate independently Short-Term Goals: To be met by discharge from inpatient: Patient will increase upper and lower extremity strength to 4/5 throughout. Patient will be able to perform all bed mobility and transfers independently with least restrictive assistive device. Patient will be independent in transfers to and from restroom. Long-Term Goals: To be met following discharge from inpatient: Patient will be able to return home at prior level of function. TREATMENT PLAN: Patient will be seen B.I.D during the week and one time per day over the weekend as an inpatient to address the above goals and objectives. INITIAL TREATMENT: Treatment today consisted of the initial evaluation activities only. ELIEZER
--- NOTE | 2017-06-25 16:57 | PT.PROG ---
Progress Note Progress Note: S. Patient stated that he is not feeling great this morning, however he would like to get out of bed. O. Patient ambulated 25 feet to the mendez and back to his bed where he was left in his bed with alarm and call light. A. Patient tolerated therapy well, he is very weak however was able to ambulate further than previously. Patient would continue to benefit from skilled therapy at this time. P. Continue POC.
--- NOTE | 2017-06-25 17:04 | PT.PROG ---
Progress Note Progress Note: S. Patient stated that he is feeling a little better this afternoon. He reports that he would go for a walk. O. Patient ambulated 70 feet from [id number], where he was left in his chair with alarm and call light. A. Patient tolerated ambulation fair, he was able to ambulate further this afternoon compared to this morning, he fatigues easily he would continue to benefit from skilled therapy at this time. P. Continue POC.
[2017-06-25] MEDS: Ertapenem Inj 1 GM in Sodium Chloride 0.9% 100 ML IV SCH (19:22)
[2017-06-25] MEDS: MORPHINE SULFATE 2 MG/1 ML IVP PRN (20:30)
[2017-06-25] MEDS: Fat Emulsions Inj 20% 250 ML IV SCH (21:19)
[2017-06-26] MEDS: MORPHINE SULFATE 2 MG/1 ML IVP PRN (01:38)
[2017-06-26] MEDS ORDERED: LIDOCAINE HCL 2 % 10 ML JELLY URO-JECT TOPICAL PRN (04:06)
[2017-06-26 05:24] LABS: Hematocrit [HCT] 29.3 % (42.0-52.0); Hemoglobin [HGB] 9.6 g/dL (14.0-18.0); MEAN CORPUSCULAR HEMOGLOBIN 28.3 PG (27-31); MEAN CORPUSCULAR HGB CONC 32.8 g/dL (33-37); MEAN CORPUSCULAR VOLUME 86.4 FL (80-90); MEAN PLATELET VOLUME 9.7 FL (7.4-12.2); RED BLOOD COUNT 3.39 10^6/uL (4.70-6.10)
[2017-06-26 05:37] LABS: BLOOD UREA NITROGEN 11 mg/dL (7-22)
[2017-06-26 05:55] LABS: PLATELET MORPHOLOGY COMMENT NORMAL MORPHOLOGY (NORM); RBC MORPHOLOGY COMMENT NORMAL MORPHOLOGY (NORM); WBC MORPHOLOGY COMMENT NORMAL MORPHOLOGY (NORM)
[2017-06-26 06:04] LABS: BAND NEUTROPHILS % 10 % (0-10); BASOPHILS % (MANUAL) 0 % (0-1); EOSINOPHILS % (MANUAL) 2 % (0-8); MONOCYTES % (MANUAL) 1 % (0-12); NEUTROPHILS % (MANUAL) 80 % (50-80); PROMYELOCYTES % 1 %
[2017-06-26] MEDS: LEVALBUTEROL HCL 0.63 MG/3 ML NEB PRN ×3 (06:46→20:03)
[2017-06-26] MEDS: NORMAL SALINE 10 ML SYRINGE FLUSH IVP PRN ×2 (09:39→15:50)
[2017-06-26] MEDS: Pantoprazole Inj 40 MG in Normal Saline Flush 10 ML IVP SCH (09:39)
--- NOTE | 2017-06-26 09:49 | OT PM DAY ---
Diagnosis : Small Bowel Resection/Weakness PM - Occupational Therapy S: The patient stated he needed help getting up. He wasn't sure if he could walk that far to the other room. O: The patient was seen in his room. He completed bed mobility with mod assist to come from supine to edge of bed. The patient required min assist to get his feet on the floor. The patient transferred from sit to stand with min assist and we assisted PT with functional transfer to the patient's new room. The patient was left upright in his chair with call light within reach. Nursing was notified. A: The patient would continue to benefit from therapy to increase his overall strength and to increase his overall function. P: Continue seeing patient BID during the week and one time per day over the weekend for upper extremity strengthening, ADLs, and overall functional mobility. MTDD
[2017-06-26] MEDS: Aa 3%/Electrolyte-Tpn/Gly 1,000 ML PRIMARY IV SCH ×3 (09:51→23:42)
--- NOTE | 2017-06-26 10:33 | OTI REPORT ---
Thank you for the referral of Jossue Garland. He was seen on 06/25/17 for an occupational therapy inpatient evaluation secondary to weakness. SUBJECTIVE: The patient is a 61-year-old male who is being seen secondary to weakness and decreased ability to perform ADLs after a bowel obstruction. The patient had a previous CVA with right sided weakness when he was [id number] that affected his speech as well as his whole right side. 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 The patient does use his right hand as a helper hand. The patient reports that he has had abdominal pain for several months but they just finally figured out what is going on. The patient is disabled; he lives by himself in a house. It is a bi-level house and he has stairs that he has to go up and down. The patient has a walk-in shower with grab bars. The patient says that he typically does not use any adaptive equipment at home for walking, but he does have a wheelchair and a single point cane that he will use at times when he is out in the community. Today the patient is on three liters of oxygen; however, he states typically he is not on any at home. Prior to admission the patient did his own laundry; he has to take his clothes into the basement. At this point he does microwave meals. He states he somewhat cleans, but he states he probably needs more assistance with this. The patient does his own driving and grocery shopping. The patient reports that his neighbor/friend comes over to help him once in a while. The patient reports that he is a little nervous and feels that he is a little unsteady. He says that recently after drinking water he will throw up sometimes. PAST MEDICAL HISTORY: Past medical history can be found in the patient's medical record. OBJECTIVE FINDINGS: Bed mobility: The patient was able to come from supine to sit with max assist. While sitting edge of bed, the patient was independent with static sitting. Range of motion: The patient's right upper extremity moves minimally. He has 0 to 25 degrees of shoulder flexion on the right. Elbow flexion/extension had delayed movement, but was able to move between 30 and 110 degrees. He has minimal wrist movement and minimal finger movement. The patient can stabilize objects with the right hand. Activities of daily living: The patient requires max assist for lower extremity dressing and mod assist for upper extremity dressing. Transfers: The patient requires min assist to functionally transfer from sit to stand and with all functional transfers the patient requires min to mod assist. ASSESSMENT: The patient may benefit from a cognitive evaluation at some point. He may need more assistance when he returns home such as Home Health and other services that will assist him with cleaning, grocery shopping, and driving. The patient' s goal is to get back to his prior level of function. Problem List: Generalized weakness Decreased ability to perform ADLs safely Decreased ability to perform functional transfers safely Short-Term Goals: To be met by discharge from inpatient: Patient will be able to [] Patient will be able to [] Patient will be able to [] Patient will be able to [] Long-Term Goals: To be met following discharge from inpatient: Patient will be able to [] Patient will be able to [] TREATMENT PLAN: Patient will be seen B.I.D during the week and one time per day over the weekend as an inpatient to address the above goals and objectives. INITIAL TREATMENT: Treatment today consisted of the initial evaluation followed by the patient coming from supine to sit. We attempted dressing tasks; the patient needed max assist for lower extremities and mod assist for upper extremities. We worked on active range of motion of the left upper extremity which is all within functional limits. The patient completed a functional transfer from the bed to the chair with min assist. ELIEZER
--- NOTE | 2017-06-26 11:32 | OT.PROG ---
Progress Note Progress Note: S: pt was willing to participate. He states he can't move his R leg while in bed. He reported having a stroke when he was a kid. O: pt was seen in his room and was assisted with bed mobility, donald Valadez. OT assisted PT with transfer. After he completed PT he completed UE exercises in his room with RTB in all planes with L non affected side but only completed rows , bicep flex and shoulder ext with R affected side. He was left upright in chair with call light within reach and legs up. A: pt participated but may continue to benefit from therapy to increase strength and overall function/activity tolerance. P: continue per POC.
--- NOTE | 2017-06-26 14:43 | PDOC(PROG) ---
Subjective Post Op Day: 3/4 Pain Management: IV Tylenol and morphine. Tolentino Catheter: Yes Flatus: Yes Diet: Clear Liquids Ambulating: Yes Date and Time of Service: 06/26/2017 - 2 p.m. Interval History: Overall doing okay. He reports he passed some gas. No further bowel movements. He does feel distended and bloated. He is taking small amounts of clear liquids. He denies nausea or vomiting. He denies any significant abdominal pain. He wants to eat. Patient is strongly fluid positive. Yesterday was up 3 pounds over his baseline and today he is up an additional 7. His hemoglobin and hematocrit have decreased slightly corresponding to that. No evidence of active bleeding. I just got a an acute abdominal series. Chest x-ray shows a right pleural effusion. Abdominal films shows subdiaphragmatic free air consistent with postoperative air. There was dilated small bowel. There was a lot of gas in the proximal colon. There is an abdominal air-fluid level consistent with ascites. Objective : Data - Labs CBC and BMP: 06/26/17 04:35 06/26/17 04:35 - Imaging Imaging Details: See history of present illness. - Vital Signs Vital Signs and I&O: Vital Signs - Last Taken Temperature 98.6 F 06/26/17 13:00 Pulse Rate 111 H 06/26/17 13:26 Respiratory Rate 20 06/26/17 13:26 Blood Pressure 130/89 06/26/17 13:00 Pulse Ox 93 06/26/17 13:26 Intake and Output (24hr x 4 totals) 06/24/17 06/25/17 06/26/17 06/27/17 05:59 05:59 05:59 05:59 Intake Total 6070 / 6070 3327 / 3327 1873 / 1873 290 / 290 Output Total 1745 / 1745 1450 / 1450 1530 / 1530 Balance 4325 / 4325 1877 / 1877 343 / 343 290 / 290 Objective : Exam - General General Appearance: No Acute Distress, Cooperative - Respiratory Respiratory Exam: Clear to Auscultation - Bilaterally, Breathing Non Labored - Cardiovascular Cardiovascular Exam: RRR, No Murmur - GI/Abdominal GI/Abdominal Exam: Soft, Distended, Hypoactive Bowel Sounds Additional GI/Abdominal Exam Details: Minimal tenderness and only seems incisional. The dressing was removed. The incision looks good. He is definitely more distended than he has been. He is tympanitic. - Rectal Rectal Exam: Deferred - Neurological Neurological Exam: Alert - Psychiatric Psychiatric Exam: Normal Affect, Normal Mood Assessment and Plan - Patient Problems (1) Post-operative hemorrhage Current Visit: Yes Status: Acute Priority: High Onset Date: 06/23/17 Comment: Resolved. No evidence of ongoing bleeding. Qualifiers: Surgical complication system/body Area: digestive system Procedure type: digestive system Qualified Code(s): K91.840 - Postprocedural hemorrhage of a digestive system organ or structure following a digestive system procedure (2) Small bowel obstruction Current Visit: Yes Status: Acute Priority: High Comment: surgically corrected. Probable ileus at this time. Will not advance diet. We will diurese. Leave Tolentino in place. Check a.m. labs. Start Lovenox in the a.m. Dulcolax suppository as there was a lot of stool in his distal colon at the time of surgery. Code(s): K56.609 - Unspecified intestinal obstruction, unspecified as to partial versus complete obstruction
[2017-06-26] MEDS ORDERED: FUROSEMIDE 10 MG/1 ML - 2 ML VIAL IVP ONE (14:55)
[2017-06-26] MEDS ORDERED: POTASSIUM CHLORIDE 20 MEQ TAB PO ONE (14:56)
[2017-06-26] MEDS ORDERED: BISACODYL 10 MG SUPPOSITORY RECTAL ONE (14:58)
--- NOTE | 2017-06-26 16:44 | PT.PROG ---
Progress Note Progress Note: S. Patient stated that he would like to go for a walk this morning. O. patient transferred from long sitting to standing then ambulated 60 feet then was left in his chair with alarm and call light. A. Patient required mod assist with transfer however required min assist with ambulation. He became very fatigued and was unsure that he would be able to make it back to the chair, however was able to complete ambulation. Patient would continue to benefit from skilled therapy to increase strength and endurance at this time. P. continue POC.
--- NOTE | 2017-06-26 17:07 | OT.PROG ---
Progress Note Progress Note: S: Pt. reports that he is very fatigued this afternoon, however agrees to participate in therapy session. O: Pt. was seen from 16: 35 to 16:47 directly following PT session due to pt. being unavailable for testing this afternoon. He was seated in recliner chair and completed the following UE ROM and strengthening activities: shoulder flexion to 60 degrees X 10, RTB L elbow flexion X 10, R elbow flexion X 10, horizontal abduction X 10, bilateral wrist flexion and extension X 10. Pt. then completed chair mobility tasks and attempted to perform chair push-up in order to scoot back in chair; pt. required mod. A to perform mobility task. Following therapy session, pt. was left in recliner with O2 call light in reach. A: Pt. was only able to tolerate minimal UE activities today due to fatigue. P: Continue POC. ADI Jimenez/Xochilt
[2017-06-26] MEDS ORDERED: Sodium Chloride 0.9% 100 ML IV ONE ×2 (17:15→17:54)
--- NOTE | 2017-06-26 18:11 | DI ---
EXAM: US Duplex Bilateral Lower Extremity Veins CLINICAL HISTORY: Evaluate for left lower extremity DVT TECHNIQUE: Real-time ultrasound scan of the veins of the bilateral lower extremities with color Doppler flow, spectral waveform analysis and compression. COMPARISON: 04/05/2017 FINDINGS: Right deep veins: Unremarkable. Normal compression and normal response to augmentation. Right superficial veins: Unremarkable as visualized. Left deep veins: Unremarkable. Normal compression and normal response to augmentation. Left superficial veins: Unremarkable as visualized. Soft tissues: No acute findings. IMPRESSION: No evidence of deep venous thrombosis in bilateral lower extremities.
--- NOTE | 2017-06-26 18:42 | PDOC(PROG) ---
Date and Time of Service: 06/26/2017, 1838 Interval History: No chest pain and no shortness of breath. No nausea or vomiting. Patient states he is passing gas, particularly when he stands up. He is very difficult to mobilize due to his right-sided hemiparesis post CVA. Objective : Data - Labs CBC and BMP: 06/26/17 04:35 06/26/17 04:35 Objective : Exam - General General Appearance: No Acute Distress, Cooperative - Eye Eye Exam: No Scleral Icterus - Respiratory Respiratory Exam: Clear to Auscultation - Bilaterally, Breathing Non Labored - Cardiovascular Cardiovascular Exam: RRR, No Murmur, No Clicks, No Gallops, No Rubs, No JVD - GI/Abdominal GI/Abdominal Exam: Normal Bowel Sounds, Non Tender, Soft Additional GI/Abdominal Exam Details: Somewhat tympanic to percussion. Midline incision is dressed, sitting is clean , dry, intact - Extremities Extremities Exam: No Clubbing Present, No Cyanosis Present Additional Extremities Exam Details: There is mild edema in the right lower extremity. - Neurological Neurological Exam: Alert, No Facial Droop, Speech Intact / Clear Assessment and Plan - Patient Problems (1) Small bowel obstruction Current Visit: Yes Status: Acute Priority: High Code(s): K56.609 - Unspecified intestinal obstruction, unspecified as to partial versus complete obstruction (2) Seizure disorder Current Visit: Yes Status: Chronic (3) Hypotension Current Visit: Yes Status: Resolved Code(s): I95.9 - Hypotension, unspecified Qualifiers: Hypotension type: unspecified hypotension type Qualified Code(s): I95.9 - Hypotension, unspecified (4) Malnutrition Current Visit: Yes Status: Acute Code(s): E46 - Unspecified protein-calorie malnutrition Qualifiers: Malnutrition type: protein-calorie malnutrition Protein-calorie malnutrition severity: moderate Qualified Code(s): E44.0 - Moderate protein- calorie malnutrition (5) Post-operative hemorrhage Current Visit: Yes Status: Resolved Priority: High Onset Date: 06/23/17 Qualifiers: Surgical complication system/body Area: digestive system Procedure type: digestive system Qualified Code(s): K91.840 - Postprocedural hemorrhage of a digestive system organ or structure following a digestive system procedure (6) History of CVA (cerebrovascular accident) Current Visit: Yes Status: Acute Code(s): Z86.73 - Personal history of transient ischemic attack (TIA), and cerebral infarction without residual deficits (7) Hypertension Current Visit: Yes Status: Acute Code(s): I10 - Essential (primary) hypertension (8) Right hemiparesis Current Visit: No Status: Chronic (9) Fluid overload Current Visit: Yes Status: Acute Code(s): E87.70 - Fluid overload, unspecified Qualifiers: Hypervolemia type: other Qualified Code(s): E87.79 - Other fluid overload - Assessment / Plan Additional Assessment/Plan Details: Overall, the patient's input is about 10 L ahead of his output. I discussed with Dr. Regalado at length. We will diurese gently at this point with Lasix 20 mg IV. His ProcalAmine will be reduced and hopefully we will be able to advance his diet to a full liquid diet tomorrow. May be able to stop the ProcalAmine at that point. Replace potassium. Return to check some ultrasounds of the lower extremities to make sure there is no DVT in the setting of the surgery and increased edema probably protein calorie malnutrition related. Hopefully we can avoid opiates to hold off any sort of ileus. There may be a small right pleural effusion on chest x-ray. Labs ordered for tomorrow. He will need eventual swing but therapy due to his right hemiparesis and lack of mobilization prior to going home.
[2017-06-26] MEDS: Ertapenem Inj 1 GM in Sodium Chloride 0.9% 100 ML IV SCH (19:31)
--- NOTE | 2017-06-26 19:39 | DI ---
EXAM: XR Abdomen, 1 View CLINICAL HISTORY: Physician Notes: Tech Comments: TECHNIQUE: Frontal supine view of the abdomen/pelvis. COMPARISON: CT 06/23/2017 FINDINGS: Intraperitoneal space: Multiple air-fluid levels. Gastrointestinal tract: Prominent gas filled loops of small large bowel are suggestive of an ileus. Bones/joints: No acute fracture or malalignment. Soft tissues: Skin jun. IMPRESSION: Prominent gas filled loops of small large bowel are suggestive of an ileus.
[2017-06-26] MEDS: Sodium Chloride 0.9% 1,000 ML IV SCH (21:40)
[2017-06-26] MEDS: Fat Emulsions Inj 20% 250 ML IV SCH (23:41)
[2017-06-27 05:18] LABS: Hematocrit [HCT] 29.7 % (42.0-52.0); Hemoglobin [HGB] 9.5 g/dL (14.0-18.0); MEAN CORPUSCULAR HEMOGLOBIN 27.7 PG (27-31); MEAN CORPUSCULAR VOLUME 86.6 FL (80-90); MEAN PLATELET VOLUME 10.6 FL (7.4-12.2); RED BLOOD COUNT 3.43 10^6/uL (4.70-6.10)
[2017-06-27 05:31] LABS: BLOOD UREA NITROGEN 9 mg/dL (7-22); SERUM ALBUMIN 1.5 g/dL (3.5-4.8)
[2017-06-27 06:08] LABS: PLATELET MORPHOLOGY COMMENT NORMAL MORPHOLOGY (NORM); RBC MORPHOLOGY COMMENT NORMAL MORPHOLOGY (NORM); WBC MORPHOLOGY COMMENT NORMAL MORPHOLOGY (NORM)
[2017-06-27 06:14] LABS: BAND NEUTROPHILS % 7 % (0-10); BASOPHILS % (MANUAL) 0 % (0-1); EOSINOPHILS % (MANUAL) 1 % (0-8); METAMYELOCYTES % 1 %; MONOCYTES % (MANUAL) 2 % (0-12); NEUTROPHILS % (MANUAL) 85 % (50-80)
[2017-06-27] MEDS: LEVALBUTEROL HCL 0.63 MG/3 ML NEB PRN ×3 (06:52→18:20)
[2017-06-27] MEDS ORDERED: Sodium Chloride 0.9% 100 ML IV ONE (08:23)
[2017-06-27] MEDS: NORMAL SALINE 10 ML SYRINGE FLUSH IVP PRN (08:40)
[2017-06-27] MEDS: ENOXAPARIN SODIUM 40 MG/0.4 ML SYRINGE SUBCUT SCH (08:40)
[2017-06-27] MEDS: Pantoprazole Inj 40 MG in Normal Saline Flush 10 ML IVP SCH (08:40)
--- NOTE | 2017-06-27 09:59 | PT PM DAY ---
Diagnosis : Small Bowel Resection/Weakness PM - Physical Therapy S: The patient states he is feeling a little bit better this afternoon and would like to go for a walk. He has had a bunch of tests this afternoon. O: The patient ambulated 75 feet in the hallway and was left in chair with OT. A: The patient tolerated ambulation fair. He continues to require mod assist with transfers and min assist with ambulation. The patient becomes very fatigued during ambulation. He did have to stand longer due to nurses working on his IV. The patient would continue to benefit from therapy to increase strength, mobility, and endurance. P: Continue seeing patient BID during the week and one time per day over the weekend for transfers, ambulation, and range of motion/strengthening exercises. MTDD
[2017-06-27] MEDS ORDERED: FUROSEMIDE 10 MG/1 ML - 4 ML IVP ONE (10:21)
[2017-06-27] MEDS ORDERED: Albumin Human Soln 25% 25 GM/100 ML IV.SOLN IV ONE (10:21)
--- NOTE | 2017-06-27 12:36 | PDOC(PROG) ---
Date and Time of Service: 06/19/2017, 12:30 Interval History: No chest pain and no shortness breath. Ultrasounds negative for DVT in the lower extremities. Overall, I think the patient needs more diuresis as he is more than 10 L ahead and is 10 pounds heavier than when he was admitted. He was walking with therapy and felt good to be up. He's had 3 bowel movements. No nausea or vomiting reported. Objective : Data - Labs CBC and BMP: 06/27/17 04:28 06/27/17 04:28 Additional Lab Results: 06/27/17 04:28 Magnesium 1.8 Total Bilirubin 0.3 AST 12 L ALT 24 Alkaline Phosphatase 63 Total Protein 3.1 L Albumin 1.5 L Globulin 1.6 L Objective : Exam - General General Appearance: No Acute Distress, Cooperative Additional General Exam Details: Vital Signs - Last Taken Temperature 98.4 F 06/27/17 11:15 Pulse Rate 110 H 06/27/17 11:15 Respiratory Rate 18 06/27/17 11:15 Blood Pressure 114/79 06/27/17 11:15 Pulse Ox 100 06/27/17 11:15 - Eye Eye Exam: No Scleral Icterus - ENT ENT Exam: Mucous Membranes Moist - Respiratory Respiratory Exam: Breathing Non Labored, Decreased Breath Sounds (Particularly in right base) - Cardiovascular Cardiovascular Exam: RRR, No Murmur, No Clicks, No Gallops, No Rubs, No JVD - GI/Abdominal GI/Abdominal Exam: Normal Bowel Sounds, Non Tender, Soft Additional GI/Abdominal Exam Details: Tympanic to percussion - Extremities Extremities Exam: No Clubbing Present, No Cyanosis Present, +2 Edema (Edema most pronounced in lower extremities, particularly right side and right upper extremity as well.) - Neurological Neurological Exam: Alert, Oriented x 3, No Facial Droop, Speech Intact / Clear, Abnormal Gait (Patient has an antalgic gait, but seems balanced with his walker , and has 2 person assist currently. He is walking a little bit better.) Assessment and Plan - Patient Problems (1) Fluid overload Current Visit: Yes Status: Acute Code(s): E87.70 - Fluid overload, unspecified Qualifiers: Hypervolemia type: other Qualified Code(s): E87.79 - Other fluid overload (2) Malnutrition Current Visit: Yes Status: Acute Code(s): E46 - Unspecified protein-calorie malnutrition Qualifiers: Malnutrition type: protein-calorie malnutrition Protein-calorie malnutrition severity: moderate Qualified Code(s): E44.0 - Moderate protein- calorie malnutrition (3) S/P small bowel resection Current Visit: Yes Status: Acute Code(s): Z90.49 - Acquired absence of other specified parts of digestive tract (4) Small bowel obstruction Current Visit: Yes Status: Resolved Priority: High Code(s): K56.609 - Unspecified intestinal obstruction, unspecified as to partial versus complete obstruction (5) Seizure disorder Current Visit: Yes Status: Chronic (6) Hypotension Current Visit: Yes Status: Resolved Code(s): I95.9 - Hypotension, unspecified Qualifiers: Hypotension type: unspecified hypotension type Qualified Code(s): I95.9 - Hypotension, unspecified (7) Post-operative hemorrhage Current Visit: Yes Status: Resolved Priority: High Onset Date: 06/23/17 Qualifiers: Surgical complication system/body Area: digestive system Procedure type: digestive system Qualified Code(s): K91.840 - Postprocedural hemorrhage of a digestive system organ or structure following a digestive system procedure (8) History of CVA (cerebrovascular accident) Current Visit: Yes Status: Acute Code(s): Z86.73 - Personal history of transient ischemic attack (TIA), and cerebral infarction without residual deficits (9) Hypertension Current Visit: Yes Status: Acute Code(s): I10 - Essential (primary) hypertension Qualifiers: Hypertension type: essential hypertension Qualified Code(s): I10 - Essential (primary) hypertension (10) Right hemiparesis Current Visit: No Status: Chronic - Assessment / Plan Additional Assessment/Plan Details: With Fluid overload and malnutrition, and do not go ahead and give some albumin today with the Lasix chaser. Check electrolytes tomorrow. Magnesium okay at 1.8, but if lower tomorrow then replaced. Potassium today as well. Continue PT and OT and mobilization as much as possible. Encouraging that the patient is having bowel movements, but still tympanic, as per surgery.
[2017-06-27] MEDS ORDERED: BISACODYL 10 MG SUPPOSITORY RECTAL ONE (13:22)
--- NOTE | 2017-06-27 13:30 | PDOC(PROG) ---
Subjective Post Op Day: 4/5 Pain Management: IV Tylenol and morphine Tolentino Catheter: Yes Flatus: Yes Diet: Clear Liquids Ambulating: Yes Date and Time of Service: 06/27/2017 1:20 PM Interval History: Patient reports he had a bowel movement after the suppository. He has passed some gas. He is ambulating. He is hungry and would like to eat. He also however feels bloated. He denies nausea or vomiting. He denies any significant abdominal pain. Objective : Data - Labs CBC and BMP: 06/27/17 04:28 06/27/17 04:28 - Vital Signs Vital Signs and I&O: Vital Signs - Last Taken Temperature 98.4 F 06/27/17 11:15 Pulse Rate 102 H 06/27/17 12:55 Respiratory Rate 18 06/27/17 12:55 Blood Pressure 114/79 06/27/17 11:15 Pulse Ox 93 06/27/17 12:55 Intake and Output (24hr x 4 totals) 06/25/17 06/26/17 06/27/17 06/28/17 05:59 05:59 05:59 05:59 Intake Total 3327 / 3327 1873 / 1873 3469 / 3469 451 / 451 Output Total 1450 / 1450 1530 / 1530 800 / 800 450 / 450 Balance 1877 / 1877 343 / 343 2669 / 2669 Objective : Exam - General General Appearance: No Acute Distress, Cooperative - Respiratory Respiratory Exam: Coarse Breath Sounds - Cardiovascular Cardiovascular Exam: RRR, No Murmur - GI/Abdominal GI/Abdominal Exam: Non Tender, Soft, Distended Additional GI/Abdominal Exam Details: The abdomen remains distended. There are rushes and tinkles were bowel tones. He was not tender. His abdomen is soft. The dressing is clean dry and intact. Everything points to an ileus including his x-ray yesterday. - Rectal Rectal Exam: Deferred - Neurological Neurological Exam: Alert, Oriented x 3 - Psychiatric Psychiatric Exam: Normal Affect, Normal Mood Assessment and Plan - Patient Problems (1) Postoperative ileus Current Visit: Yes Status: Acute Priority: Medium Onset Date: ~06/26/17 Comment: Bowel function has not returned to normal. No evidence of complications. Must await return of GI function. We'll start Reglan. We'll check an x-ray in the morning. He had been partially obstructed for a long time. The bowel prior to the anastomosis was massively dilated. It may take some time for return of normal bowel function. I discussed this with the patient. Code(s): K91.89 - Other postprocedural complications and disorders of digestive system; K56.7 - Ileus, unspecified (2) Post-operative hemorrhage Current Visit: Yes Status: Resolved Priority: High Onset Date: 06/23/17 Comment: Resolved. Continue to monitor. Qualifiers: Surgical complication system/body Area: digestive system Procedure type: digestive system Qualified Code(s): K91.840 - Postprocedural hemorrhage of a digestive system organ or structure following a digestive system procedure (3) Small bowel obstruction Current Visit: Yes Status: Resolved Priority: High Comment: Surgically corrected. Postoperative ileus. Final pathology report pending. I spoke to the pathologist yesterday, he felt this is most likely secondary to Crohn's disease. Code(s): K56.609 - Unspecified intestinal obstruction, unspecified as to partial versus complete obstruction
[2017-06-27] MEDS: Metoclopramide Inj 10 MG/2 ML VIAL IVP SCH ×2 (13:45→19:55)
[2017-06-27] MEDS ORDERED: Potassium Phoshate Inj 20 MMOL in Sodium Chloride 0.9% 100 ML IV ONE ×2 (14:56→19:00)
[2017-06-27] MEDS: PHOS-NAK 1 EACH POWD.PACK PO SCH ×2 (15:30→18:56)
--- NOTE | 2017-06-27 16:11 | PT.PROG ---
Progress Note Progress Note: S. Patient stated that he is feeling better this morning and would like to go for a walk. O. patient ambulated 80 feet in the mendez and returned to his room where he was left with OT for further therapy. A. Patient tolerated ambulation well this morning, he continues to struggle with pain and would continue to benefit from skilled therapy at this time. P. Continue POC.
--- NOTE | 2017-06-27 17:27 | OT.PROG ---
Progress Note Progress Note: S: pt stated he was feeling tired, but he said he wanted to get up and walk. O: pt was seen in the a.m after assisting PT with transfers. Patrice needed max A to kris Le garments. He completed light AROM activity then received manual therapy in form of PROM to RUE in flex, and abd and rotations. He was left upright in chair with call light within reach and nurse present. A: Pt would continue to benefit from skilled therapy to increase activity tolerance and ability to complete ADL's. P: continue per POC.
[2017-06-27] MEDS: Fat Emulsions Inj 20% 250 ML IV SCH (21:55)
[2017-06-27] MEDS: Aa 3%/Electrolyte-Tpn/Gly 1,000 ML PRIMARY IV SCH (21:55)
[2017-06-28] MEDS: Metoclopramide Inj 10 MG/2 ML VIAL IVP SCH ×4 (02:35→21:40)
[2017-06-28 05:59] LABS: Hematocrit [HCT] 26.2 % (42.0-52.0); Hemoglobin [HGB] 8.5 g/dL (14.0-18.0); MEAN CORPUSCULAR HEMOGLOBIN 28.1 PG (27-31); MEAN CORPUSCULAR HGB CONC 32.4 g/dL (33-37); MEAN CORPUSCULAR VOLUME 86.5 FL (80-90); MEAN PLATELET VOLUME 10.4 FL (7.4-12.2); RED BLOOD COUNT 3.03 10^6/uL (4.70-6.10)
[2017-06-28 06:22] LABS: BLOOD UREA NITROGEN 8 mg/dL (7-22); BUN/CREATININE RATIO 26.66 (6-20); SERUM ALBUMIN 1.8 g/dL (3.5-4.8)
[2017-06-28 06:43] LABS: PLATELET MORPHOLOGY COMMENT NORMAL MORPHOLOGY (NORM); RBC MORPHOLOGY COMMENT SEE COMMENTS (NORM); WBC MORPHOLOGY COMMENT NORMAL MORPHOLOGY (NORM)
[2017-06-28 06:44] LABS: BAND NEUTROPHILS % 3 % (0-10); BASOPHILS % (MANUAL) 0 % (0-1); EOSINOPHILS % (MANUAL) 7 % (0-8); MONOCYTES % (MANUAL) 1 % (0-12); NEUTROPHILS % (MANUAL) 74 % (50-80)
[2017-06-28] MEDS: LEVALBUTEROL HCL 0.63 MG/3 ML NEB PRN ×3 (06:48→18:58)
[2017-06-28] MEDS ORDERED: levETIRAcetam Inj 500 MG/5 ML VIAL IV ONE (08:09)
[2017-06-28] MEDS: Pantoprazole Inj 40 MG in Normal Saline Flush 10 ML IVP SCH (08:11)
[2017-06-28] MEDS: ENOXAPARIN SODIUM 40 MG/0.4 ML SYRINGE SUBCUT SCH (08:11)
[2017-06-28] MEDS: NORMAL SALINE 10 ML SYRINGE FLUSH IVP PRN ×2 (08:12→15:36)
--- NOTE | 2017-06-28 08:56 | DI ---
INDICATION: Status post small bowel resection COMPARISON: Abdominal radiograph 06/26/17 FINDINGS: Upright and supine AP views of the abdomen are provided. There has been recent laparotomy with midline skin closure jun. There is persistent moderate pneumoperitoneum. Gaseous distention of small and large bowel loops with multiple fluid levels on upright views is suggestive of ileus, similar to prior exam. There are no acute osseous findings. IMPRESSION: 1. Persistent postoperative ileus. 2. Persistent moderate pneumoperitoneum. Correlate with timing of most recent surgery as volume of gas raises concern for perforated viscus.
[2017-06-28] MEDS ORDERED: Sodium Chloride 0.9% 500 ML PRIMARY IV ONE (09:02)
--- NOTE | 2017-06-28 09:12 | PT PM DAY ---
Diagnosis : Small Bowel Resection/Weakness PM - Physical Therapy S: The patient states he is feeling better this afternoon. O: The patient ambulated 120 feet and was left in chair with alarm on and call light within reach. A: The patient tolerated therapy well this afternoon. He was able to ambulate with stand by assistance. P: Continue seeing patient BID during the week and one time per day over the weekend for transfers, ambulation, and range of motion/strengthening exercises. MTDD
--- NOTE | 2017-06-28 09:46 | PDOC(PROG) ---
Subjective Post Op Day: 5/6 Pain Management: essentially none Tolentino Catheter: Yes Flatus: Yes Diet: Clear Liquids Ambulating: Yes Date and Time of Service: 06/28/2017 patient seen at the 8:45 AM. Current time 9:40 AM. Interval History: Overall reports a pretty good night. Patient is an extremely terrible historian. He does believe he has had several bowel movements. The nursing staff states he had 1 after his suppository yesterday. We will He is passing some gas. He is hungry. He denies any abdominal pain. He's got nothing at all today including no Tylenol. She denies nausea or vomiting. Patient was started on Lovenox yesterday. His hemoglobin and hematocrit have decreased. I have decided to stop the Lovenox. There are no indications of bleeding. He remains fluid long. With his hemoglobin at 8.5 and his hematocrit at 26 I think he would benefit from blood products. I have ordered and he has agreed to transfusion of 2 units of packed red blood cells today. His nutritional status is very poor. He is on ProcalAmine and lipids. Patient is aware I will be out of town this weekend. Dr. Buckley will cover until Saturday a.m. Objective : Data - Labs CBC and BMP: 06/28/17 05:21 06/28/17 05:21 - Imaging Imaging Details: X-ray this morning shows persistent subdiaphragmatic free air. It looks to me like his bowel is much less distended though the radiologist describes it as a persisting ileus. No clinical indications of a perforated viscus. - Vital Signs Vital Signs and I&O: Vital Signs - Last Taken Temperature 97.5 F 06/28/17 08:15 Pulse Rate 98 06/28/17 08:15 Respiratory Rate 20 06/28/17 08:15 Blood Pressure 113/68 06/28/17 08:15 Pulse Ox 98 06/28/17 08:15 Intake and Output (24hr x 4 totals) 06/26/17 06/27/17 06/28/17 06/29/17 05:59 05:59 05:59 05:59 Intake Total 1873 / 1873 3469 / 3469 2336 / 2336 240 / 240 Output Total 1530 / 1530 800 / 800 3150 / 3150 Balance 343 / 343 2669 / 2669 -814 / -814 240 / 240 Objective : Exam - General General Appearance: No Acute Distress, Cooperative, Disheveled - Respiratory Respiratory Exam: Clear to Auscultation - Bilaterally, Breathing Non Labored - Cardiovascular Cardiovascular Exam: RRR, No Murmur - GI/Abdominal GI/Abdominal Exam: Non Tender, Soft, Distended Additional GI/Abdominal Exam Details: Abdomen is distended. It is less distended than yesterday. There is no tenderness. There is no focal tenderness. There are no peritoneal signs. Certainly not an acute abdomen. Findings are consistent with an ileus. There are rushes and tinkles for bowel tones. - Neurological Neurological Exam: Alert, Oriented x 3 - Psychiatric Psychiatric Exam: Normal Affect, Normal Mood Assessment and Plan - Patient Problems (1) Postoperative ileus Current Visit: Yes Status: Acute Priority: Medium Onset Date: ~06/26/17 Comment: Postoperative ileus persists. Await return of GI function. The patient is on Reglan. He is on ProcalAmine and lipids as well. Code(s): K91.89 - Other postprocedural complications and disorders of digestive system; K56.7 - Ileus, unspecified (2) Post-operative hemorrhage Current Visit: Yes Status: Resolved Priority: High Onset Date: 06/23/17 Comment: Hemoglobin and hematocrit have decreased slightly to 8.5 and 26 respectively. With his nutritional status and low albumin I think is important to get his hemoglobin and hematocrit up. We'll transfuse 2 units of packed red blood cells today and continue to follow. Lovenox has been discontinued. Qualifiers: Surgical complication system/body Area: digestive system Procedure type: digestive system Qualified Code(s): K91.840 - Postprocedural hemorrhage of a digestive system organ or structure following a digestive system procedure (3) Small bowel obstruction Current Visit: Yes Status: Resolved Priority: High Comment: Surgically corrected. Code(s): K56.609 - Unspecified intestinal obstruction, unspecified as to partial versus complete obstruction
[2017-06-28] MEDS ORDERED: FUROSEMIDE 10 MG/1 ML - 4 ML IVP ONE (10:56)
[2017-06-28] MEDS: Sodium Chloride 0.9% 1,000 ML IV SCH (13:15)
--- NOTE | 2017-06-28 17:04 | PDOC(PROG) ---
Date and Time of Service: 06/28/2017, 1700 Interval History: Patient seen earlier today. No completes of chest pain or shortness breath. States he is having bowel movements. Hungry. Complain of bloating earlier, but his belly softer today than it has been the last 3 days. No complaints of bloating to me. We were able to convince him to ambulate around the hallways at least one lap, and he did very well with therapy on this. Diuresing well with Lasix. Particularly with albumin prior to Lasix yesterday, and with blood today, should help with some protein status to a degree that Lasix will be helpful again today. Objective : Data - Labs CBC and BMP: 06/28/17 05:21 06/28/17 05:21 Additional Lab Results: 06/28/17 05:21 Magnesium 1.8 Total Bilirubin 0.3 AST 15 L ALT 25 Alkaline Phosphatase 54 Total Protein 3.6 L Albumin 1.8 L Globulin 1.8 L - Imaging X-Ray Status: Image Reviewed by Me (Abdominal x-ray shows loops of bowel are at the upper limits of normal, but I do not think there is a obstruction) Objective : Exam - General General Appearance: No Acute Distress, Cooperative Additional General Exam Details: Vital Signs - Last Taken Temperature 98.1 F 06/28/17 13:31 Pulse Rate 98 06/28/17 13:31 Respiratory Rate 20 06/28/17 13:31 Blood Pressure 128/93 06/28/17 13:31 Pulse Ox 96 06/28/17 13:31 - Eye Eye Exam: No Scleral Icterus - ENT ENT Exam: Mucous Membranes Moist - Respiratory Respiratory Exam: Clear to Auscultation - Bilaterally, Breathing Non Labored - Cardiovascular Cardiovascular Exam: RRR, No Murmur, No Clicks, No Gallops, No Rubs, No JVD - GI/Abdominal GI/Abdominal Exam: Non Tender, Non Distended, Soft, Hypoactive Bowel Sounds - Extremities Extremities Exam: No Clubbing Present, No Cyanosis Present Additional Extremities Exam Details: Edema in right lower extremity improved, resolved. Right upper extremity edema persists, some redness, but not hot to touch, not tender to palpation. I'm not sure how well his proprioception is after his history of stroke with right hemiparesis. - Neurological Neurological Exam: Alert, No Facial Droop, Speech Intact / Clear, Abnormal Gait (He has an altered gait, but did very well with standby assist with walker with therapy walking on the mendez on my observation.) Assessment and Plan - Patient Problems (1) Fluid overload Current Visit: Yes Status: Acute Code(s): E87.70 - Fluid overload, unspecified Qualifiers: Hypervolemia type: other Qualified Code(s): E87.79 - Other fluid overload (2) Malnutrition Current Visit: Yes Status: Acute Code(s): E46 - Unspecified protein-calorie malnutrition Qualifiers: Malnutrition type: protein-calorie malnutrition Protein-calorie malnutrition severity: moderate Qualified Code(s): E44.0 - Moderate protein- calorie malnutrition (3) S/P small bowel resection Current Visit: Yes Status: Acute Code(s): Z90.49 - Acquired absence of other specified parts of digestive tract (4) Small bowel obstruction Current Visit: Yes Status: Resolved Priority: High Code(s): K56.609 - Unspecified intestinal obstruction, unspecified as to partial versus complete obstruction (5) Seizure disorder Current Visit: Yes Status: Chronic (6) Hypotension Current Visit: Yes Status: Resolved Code(s): I95.9 - Hypotension, unspecified Qualifiers: Hypotension type: unspecified hypotension type Qualified Code(s): I95.9 - Hypotension, unspecified (7) Post-operative hemorrhage Current Visit: Yes Status: Resolved Priority: High Onset Date: 06/23/17 Qualifiers: Surgical complication system/body Area: digestive system Procedure type: digestive system Qualified Code(s): K91.840 - Postprocedural hemorrhage of a digestive system organ or structure following a digestive system procedure (8) History of CVA (cerebrovascular accident) Current Visit: Yes Status: Acute Code(s): Z86.73 - Personal history of transient ischemic attack (TIA), and cerebral infarction without residual deficits (9) Hypertension Current Visit: Yes Status: Acute Code(s): I10 - Essential (primary) hypertension Qualifiers: Hypertension type: essential hypertension Qualified Code(s): I10 - Essential (primary) hypertension (10) Right hemiparesis Current Visit: No Status: Chronic - Assessment / Plan Additional Assessment/Plan Details: Overall, fluid overload improved, but still present. Continue Lasix. Probably has urinary retention related to history of stroke, also start Flomax. Continue Tolentino catheter for now. Diet advancement as per surgery, but if we are not advancing to a by mouth diet in the next 24-48 hours, I think we need to consider central line access with TPN for nutritional status. Continue PT and OT and encourage ambulation. I saw DVT prophylaxis was discontinued, as per surgery in this regard. The patient is inherently at some risk of DVT given his post surgical state. Check labs tomorrow Replace potassium given Lasix therapy. Phosphorus is repleted. Check magnesium again tomorrow.
[2017-06-28 17:08] LABS: Hemoglobin [HGB] 12.6 g/dL (14.0-18.0); MEAN CORPUSCULAR HEMOGLOBIN 27.7 PG (27-31); MEAN CORPUSCULAR HGB CONC 32.3 g/dL (33-37); MEAN CORPUSCULAR VOLUME 85.7 FL (80-90); MEAN PLATELET VOLUME 9.3 FL (7.4-12.2); RED BLOOD COUNT 4.55 10^6/uL (4.70-6.10)
--- NOTE | 2017-06-28 17:31 | PT.PROG ---
Progress Note Progress Note: S. Patient stated that he would go for a walk this afternoon. O. Patient ambulated 150 feet around the nurses station then returned to his room where he was left in his chair with alarm and call light. A. patient tolerated ambulation well, he required 2 standing rest breaks however was able to ambulate with Min assist. Patient would continue to benefit from skilled therapy at this time. P. continue POC.
--- NOTE | 2017-06-28 17:37 | OT.PROG ---
Progress Note Progress Note: S: pt stated he was feeling good. O: pt was seen in his room needing mod A bed mobiliy. OT co-treated with Pt as he amublated around nurses station. He then was returned to his recliner where he completed chair mobility INd for comfort. A: pt increased his distance of transfers today. Continue to progress as he can tolerate. P: continue per POC.
[2017-06-28 17:39] LABS: PLATELET MORPHOLOGY COMMENT NORMAL MORPHOLOGY (NORM); RBC MORPHOLOGY COMMENT SEE COMMENTS (NORM); WBC MORPHOLOGY COMMENT NORMAL MORPHOLOGY (NORM)
[2017-06-28 17:40] LABS: BAND NEUTROPHILS % 2 % (0-10); BASOPHILS % (MANUAL) 0 % (0-1); EOSINOPHILS % (MANUAL) 6 % (0-8); MONOCYTES % (MANUAL) 12 % (0-12); NEUTROPHILS % (MANUAL) 67 % (50-80)
[2017-06-28] MEDS ORDERED: Sodium Chloride 0.9% 50 ML ONE (20:06)
[2017-06-28] MEDS: TAMSULOSIN 0.4 MG CAPSULE PO SCH (20:13)
[2017-06-28] MEDS: Aa 3%/Electrolyte-Tpn/Gly 1,000 ML PRIMARY IV SCH (20:13)
[2017-06-28] MEDS: MULTIVITAMIN PO SCH (20:13)
[2017-06-28] MEDS: IRON MINERALS PO SCH (20:13)
[2017-06-28] MEDS: Fat Emulsions Inj 20% 250 ML IV SCH (21:39)
[2017-06-29] MEDS: Metoclopramide Inj 10 MG/2 ML VIAL IVP SCH ×4 (03:56→21:16)
[2017-06-29 05:00] LABS: Hematocrit [HCT] 35.8 % (42.0-52.0); Hemoglobin [HGB] 11.5 g/dL (14.0-18.0); MEAN CORPUSCULAR HEMOGLOBIN 27.6 PG (27-31); MEAN CORPUSCULAR HGB CONC 32.1 g/dL (33-37); MEAN CORPUSCULAR VOLUME 85.9 FL (80-90); MEAN PLATELET VOLUME 10.3 FL (7.4-12.2); RED BLOOD COUNT 4.17 10^6/uL (4.70-6.10)
[2017-06-29 05:11] LABS: BLOOD UREA NITROGEN 6 mg/dL (7-22)
[2017-06-29 05:48] LABS: PLATELET MORPHOLOGY COMMENT NORMAL MORPHOLOGY (NORM); RBC MORPHOLOGY COMMENT SEE COMMENTS (NORM); WBC MORPHOLOGY COMMENT NORMAL MORPHOLOGY (NORM)
[2017-06-29 06:02] LABS: BAND NEUTROPHILS % 9 % (0-10); BASOPHILS % (MANUAL) 2 % (0-1); EOSINOPHILS % (MANUAL) 6 % (0-8); MONOCYTES % (MANUAL) 3 % (0-12); NEUTROPHILS % (MANUAL) 64 % (50-80)
[2017-06-29] MEDS: LEVALBUTEROL HCL 0.63 MG/3 ML NEB PRN ×2 (06:41→13:00)
[2017-06-29] MEDS: IRON MINERALS PO SCH (08:49)
[2017-06-29] MEDS: MULTIVITAMIN PO SCH (08:49)
[2017-06-29] MEDS: Pantoprazole Inj 40 MG in Normal Saline Flush 10 ML IVP SCH (08:49)
[2017-06-29] MEDS: TAMSULOSIN 0.4 MG CAPSULE PO SCH (08:50)
--- NOTE | 2017-06-29 10:39 | PDOC(PROG) ---
Subjective Post Op Day: postop day 6/7 Pain Management: PO Tolentino Catheter: Yes Diet: Clear Liquids Date and Time of Service: 06/29/2017 at 1040 Interval History: Patient states that he is doing very well. Having no problems. He's tolerating diet. He is passing flatus. GREEN BUILDING ENERGY ENGINEER states that the patient has had a bowel movement today. Objective : Data - Labs CBC and BMP: 06/29/17 04:09 06/29/17 04:09 - Vital Signs Vital Signs and I&O: Vital Signs - Last Taken Temperature 98.2 F 06/29/17 08:23 Pulse Rate 100 06/29/17 08:23 Respiratory Rate 20 06/29/17 08:23 Blood Pressure 182/94 06/29/17 08:23 Pulse Ox 95 06/29/17 08:23 Intake and Output (24hr x 4 totals) 06/27/17 06/28/17 06/29/17 06/30/17 05:59 05:59 05:59 05:59 Intake Total 3469 / 3469 2336 / 2336 1548 / 1548 1394 / 1394 Output Total 800 / 800 3150 / 3150 3712 / 3712 Balance 2669 / 2669 -814 / -814 -2164 / -2164 1394 / 1394 Objective : Exam - General General Appearance: No Acute Distress - Eye Eye Exam: EOMI - GI/Abdominal GI/Abdominal Exam: Non Tender, Non Distended, Soft Assessment and Plan - Patient Problems (1) S/P small bowel resection Current Visit: Yes Status: Acute Code(s): Z90.49 - Acquired absence of other specified parts of digestive tract - Assessment / Plan Additional Assessment/Plan Details: This point the patient appears to be doing fine. Will advance his diet. His blood pressure is up this to be addressed by the hospitalist.
--- NOTE | 2017-06-29 11:02 | PT.PROG ---
Progress Note Progress Note: S: Hai states that he is doing okay today. Denies any pain. Pt agreed to participate in PT. O: Tx consisted of transfer from supine to EOB with head of bed elevated - pt required min A x 1. Pt able to perform STS with CGA x 1 for safety. Pt amb x 150 ft with standard walker and CGA x 1 for safety - pt demo shuffling gait pattern and required extra time - after 150ft, pt became fatigued and required rest break. Pt was brought via w/c to shower room with ADULT SECONDARY EDUCATION INSTRUCTOR and left in care of ADULT SECONDARY EDUCATION INSTRUCTOR. A: Hai tolerated program fair today - pt had some difficulties with initiating gait at first but able to complete 150 ft in 10 minutes. P: Continue per POC.
[2017-06-29] MEDS ORDERED: FUROSEMIDE 10 MG/1 ML - 4 ML IVP ONE (12:01)
[2017-06-29] MEDS ORDERED: Albumin Human Soln 25% 50 GM/200 ML IV.SOLN IV ONE (12:01)
[2017-06-29] MEDS: Aa 3%/Electrolyte-Tpn/Gly 1,000 ML PRIMARY IV SCH (12:19)
[2017-06-29] MEDS ORDERED: Sodium Chloride 0.9% 50 ML ONE (13:12)
[2017-06-29] MEDS: ASPIRIN EC 81 MG TABLET PO SCH (13:14)
[2017-06-29] MEDS: Potassium Chloride Tab 10 MEQ TAB PO SCH ×2 (13:14→20:11)
[2017-06-29] MEDS: FUROSEMIDE 40 MG TABLET PO SCH (13:14)
[2017-06-29] MEDS: NORMAL SALINE 10 ML SYRINGE FLUSH IVP PRN ×2 (13:14→21:16)
[2017-06-29] MEDS: ASCORBIC ACID 500 MG TABLET PO SCH (13:14)
--- NOTE | 2017-06-29 15:19 | PDOC(PROG) ---
Date and Time of Service: 06/29/2017, 1515 Interval History: Chest pain, shortness breath, or nausea or vomiting. Patient's diet was advanced to a full liquid diet today. He feels better about that. He is still having bowel movements and passing gas. Objective : Data - Labs CBC and BMP: 06/29/17 04:09 06/29/17 04:09 Additional Lab Results: 06/29/17 04:09 Magnesium 1.8 Total Bilirubin 0.4 AST 14 L ALT 29 Alkaline Phosphatase 71 Total Protein 4.1 L Albumin 2.0 L Objective : Exam - General General Appearance: No Acute Distress, Cooperative Additional General Exam Details: Vital Signs - Last Taken Temperature 98.4 F 06/29/17 13:00 Pulse Rate 88 06/29/17 13:01 Respiratory Rate 18 06/29/17 13:01 Blood Pressure 141/99 06/29/17 13:00 Pulse Ox 94 06/29/17 13:00 Intake and Output (24hr x 4 totals) 06/27/17 06/28/17 06/29/17 06/30/17 05:59 05:59 05:59 05:59 Intake Total 3469 / 3469 2336 / 2336 1548 / 1548 2294 / 2294 Output Total 800 / 800 3150 / 3150 3712 / 3712 1500 / 1500 Balance 2669 / 2669 -814 / -814 -2164 / -2164 794 / 794 - Head Head Exam: Normal Inspection, Normocephalic, Atraumatic - Eye Eye Exam: No Scleral Icterus - ENT ENT Exam: Mucous Membranes Moist - Respiratory Respiratory Exam: Clear to Auscultation - Bilaterally, Breathing Non Labored - Cardiovascular Cardiovascular Exam: RRR, No Murmur, No Clicks, No Gallops, No Rubs, No JVD - GI/Abdominal GI/Abdominal Exam: Normal Bowel Sounds, Non Tender, Non Distended, Soft - Extremities Extremities Exam: No Clubbing Present, No Cyanosis Present Additional Extremities Exam Details: Trace edema in the extremities, overall I think better this week. - Neurological Neurological Exam: Alert, Oriented x 3, No Facial Droop, Speech Intact / Clear Assessment and Plan - Patient Problems (1) Fluid overload Current Visit: Yes Status: Acute Code(s): E87.70 - Fluid overload, unspecified Qualifiers: Hypervolemia type: other Qualified Code(s): E87.79 - Other fluid overload (2) Malnutrition Current Visit: Yes Status: Acute Code(s): E46 - Unspecified protein-calorie malnutrition Qualifiers: Malnutrition type: protein-calorie malnutrition Protein-calorie malnutrition severity: moderate Qualified Code(s): E44.0 - Moderate protein- calorie malnutrition (3) S/P small bowel resection Current Visit: Yes Status: Acute Code(s): Z90.49 - Acquired absence of other specified parts of digestive tract (4) Small bowel obstruction Current Visit: Yes Status: Resolved Priority: High Code(s): K56.609 - Unspecified intestinal obstruction, unspecified as to partial versus complete obstruction (5) Seizure disorder Current Visit: Yes Status: Chronic (6) Hypotension Current Visit: Yes Status: Resolved Code(s): I95.9 - Hypotension, unspecified Qualifiers: Hypotension type: unspecified hypotension type Qualified Code(s): I95.9 - Hypotension, unspecified (7) Post-operative hemorrhage Current Visit: Yes Status: Resolved Priority: High Onset Date: 06/23/17 Qualifiers: Surgical complication system/body Area: digestive system Procedure type: digestive system Qualified Code(s): K91.840 - Postprocedural hemorrhage of a digestive system organ or structure following a digestive system procedure (8) History of CVA (cerebrovascular accident) Current Visit: Yes Status: Acute Code(s): Z86.73 - Personal history of transient ischemic attack (TIA), and cerebral infarction without residual deficits (9) Hypertension Current Visit: Yes Status: Acute Code(s): I10 - Essential (primary) hypertension Qualifiers: Hypertension type: essential hypertension Qualified Code(s): I10 - Essential (primary) hypertension (10) Right hemiparesis Current Visit: No Status: Chronic - Assessment / Plan Additional Assessment/Plan Details: Persistent fluid overload, but the last 2 days he has had more output. He did lose 3 ounces overnight in terms of his weight. Resume by mouth medications, diurese again with albumin prior to Lasix. Replace potassium. Check labs tomorrow. Continue PT and OT. In terms of the patient's blood pressures, I think that they will start to normalize as we aren't able to take off some of these fluids and get him back on his by mouth regimen. There could be an element of beta liza withdrawal as he is on propranolol at home.
[2017-06-29] MEDS: Sodium Chloride 0.9% 1,000 ML IV SCH (15:35)
[2017-06-29] MEDS: PROPRANOLOL ER 60 MG CAPSULE PO SCH (20:11)
[2017-06-29] MEDS: LevETIRAcetam Tab 500 MG TABLET PO SCH (20:11)
[2017-06-29] MEDS ORDERED: Propranolol Tab 40 MG TAB PO SCH (21:00)
[2017-06-29] MEDS ORDERED: PROPRANOLOL HCL 60 MG PO SCH (21:00)
[2017-06-30] MEDS: Metoclopramide Inj 10 MG/2 ML VIAL IVP SCH ×4 (04:21→22:45)
[2017-06-30] MEDS: NORMAL SALINE 10 ML SYRINGE FLUSH IVP PRN ×4 (04:21→22:45)
[2017-06-30 05:14] LABS: BASOPHILS # (AUTO) 0.05 10*3/UL; BASOPHILS % (AUTO) 1.1 % (0-1); EOSINOPHILS # (AUTO) 0.36 10*3/UL; EOSINOPHILS % (AUTO) 7.8 % (0-8); Hematocrit [HCT] 32.7 % (42.0-52.0); Hemoglobin [HGB] 10.5 g/dL (14.0-18.0); LYMPHOCYTES # (AUTO) 0.39 10*3/uL; MEAN CORPUSCULAR HEMOGLOBIN 27.8 PG (27-31); MEAN CORPUSCULAR HGB CONC 32.1 g/dL (33-37); MEAN CORPUSCULAR VOLUME 86.5 FL (80-90); MEAN PLATELET VOLUME 9.6 FL (7.4-12.2); MONOCYTES # (AUTO) 0.41 10*3/UL (0.3-0.8); MONOCYTES % (AUTO) 8.9 % (5-15); NEUTROPHILS # (AUTO) 3.27 10*3/UL; NEUTROPHILS % (AUTO) 71.3 % (50-80); RED BLOOD COUNT 3.78 10^6/uL (4.70-6.10)
[2017-06-30 05:20] LABS: BLOOD UREA NITROGEN 4 mg/dL (7-22); BUN/CREATININE RATIO 13.33 (6-20)
[2017-06-30 05:56] LABS: PLATELET MORPHOLOGY COMMENT NORMAL MORPHOLOGY (NORM); WBC MORPHOLOGY COMMENT NORMAL MORPHOLOGY (NORM)
[2017-06-30 05:57] LABS: RBC MORPHOLOGY COMMENT SEE COMMENTS (NORM)
[2017-06-30] MEDS: FUROSEMIDE 40 MG TABLET PO SCH ×2 (07:30→14:30)
[2017-06-30] MEDS ORDERED: Albumin Human Soln 25% 50 GM/200 ML IV.SOLN IV ONE (09:35)
[2017-06-30] MEDS ORDERED: FUROSEMIDE 10 MG/1 ML - 4 ML IVP ONE (09:35)
[2017-06-30] MEDS: TAMSULOSIN 0.4 MG CAPSULE PO SCH (09:41)
[2017-06-30] MEDS: LevETIRAcetam Tab 500 MG TABLET PO SCH ×2 (09:41→20:30)
[2017-06-30] MEDS: ASCORBIC ACID 500 MG TABLET PO SCH (09:41)
[2017-06-30] MEDS: PROPRANOLOL ER 60 MG CAPSULE PO SCH ×2 (09:41→20:31)
[2017-06-30] MEDS: ASPIRIN EC 81 MG TABLET PO SCH (09:41)
[2017-06-30] MEDS: Potassium Chloride Tab 10 MEQ TAB PO SCH ×2 (09:41→20:30)
[2017-06-30] MEDS: MULTIVITAMIN PO SCH (11:13)
[2017-06-30] MEDS: IRON MINERALS PO SCH (11:13)
--- NOTE | 2017-06-30 12:10 | OT.PROG ---
Progress Note Progress Note: Occupational Therapy S: Pt. reports he has mild discomfort in his abdomen however is feeling pretty good today. O: Pt. was seen from 1135 to 1155 for skilled therapy session with a focus on strengthening and activity tolerance. Pt. completed 5 sit to stands from recliner with min. A and then tolerated standing X 5 min. while weight shifting. Pt. also completed the following UE strengthening activities: RTB biceps X 20, shoulder flexion X 15 to 90 degrees, shoulder abduction X 15 to 90 degrees, shoulder retraction X 15. RTB rows X 15, and shoulder shrugs X 15. A: Pt. tolerated therapy session fair today. He continues to benefit from skilled care to increase strength, safety, and ADL performance. P: Continue POC. ADI Jimenez/Xochilt
--- NOTE | 2017-06-30 12:24 | PDOC(PROG) ---
Subjective Post Op Day: postop day 7/ Pain Management: PO Flatus: Yes Diet: full liquid Ambulating: Yes Date and Time of Service: 06/30/2017 at 1225 Interval History: Patient states he's feeling fine. Passing flatus had a large bowel movement last night Objective : Data - Labs CBC and BMP: 06/30/17 04:22 06/30/17 04:22 - Vital Signs Vital Signs and I&O: Vital Signs - Last Taken Temperature 98.4 F 06/30/17 11:26 Pulse Rate 70 06/30/17 11:26 Respiratory Rate 18 06/30/17 11:26 Blood Pressure 164/87 06/30/17 11:26 Pulse Ox 95 06/30/17 11:26 Intake and Output (24hr x 4 totals) 06/28/17 06/29/17 06/30/17 07/01/17 05:59 05:59 05:59 05:59 Intake Total 2336 / 2336 1548 / 1548 4340 / 4340 240 / 240 Output Total 3150 / 3150 3712 / 3712 3600 / 3600 700 / 700 Balance -814 / -814 -2164 / -2164 740 / 740 -460 / -460 Objective : Exam - General General Appearance: No Acute Distress, Cooperative - GI/Abdominal GI/Abdominal Exam: Normal Bowel Sounds, Non Tender, Non Distended, Soft Additional GI/Abdominal Exam Details: Incision clean and nonerythematous Assessment and Plan - Patient Problems (1) S/P small bowel resection Current Visit: Yes Status: Acute Code(s): Z90.49 - Acquired absence of other specified parts of digestive tract - Assessment / Plan Additional Assessment/Plan Details: Overall patient is doing very well. We'll advance his diet to regular diet. I think it any time when he is stable medical standpoint he can be discharged home. He'll follow with Dr. Regalado in approximately 4 days to have jun removed on postop day 10
--- NOTE | 2017-06-30 15:30 | PDOC(PROG) ---
Date and Time of Service: 06/30/2017, 1524 Interval History: no complaints of abdominal pain no nausea or vomiting no CP or SOB feels better, but thinks he needs more therapy as well. Objective : Data - Labs CBC and BMP: 06/30/17 04:22 06/30/17 04:22 Additional Lab Results: Laboratory Results 06/30/17 06/30/17 Range/Units 04:22 04:22 WBC 4.59 L (4.8-10.8) 10^3/uL RBC 3.78 L (4.70-6.10) 10^6/uL Hgb 10.5 L (14.0-18.0) g/dL Hct 32.7 L (42.0-52.0) % MCV 86.5 (80-90) FL MCH 27.8 (27-31) PG MCHC 32.1 L (33-37) g/dL RDW Std Deviation 50.1 H (39-50) fL RDW Coeff of Sergo 16.3 H (11.5-14.5) % Plt Count 183 (140-350) 10*3/uL MPV 9.6 (7.4-12.2) FL Immature Gran % (Auto) 2.4 (0-5) % Neut % (Auto) 71.3 (50-80) % Lymph % (Auto) 8.5 L (10-50) % [place] % (Auto) 8.9 (5-15) % Eos % (Auto) 7.8 (0-8) % Baso % (Auto) 1.1 H (0-1) % Immature Gran # (Auto) 0.11 10*3/UL Neut # (Auto) 3.27 10*3/UL Lymph # (Auto) 0.39 10*3/uL [place] # (Auto) 0.41 (0.3-0.8) 10*3/UL Eos # (Auto) 0.36 10*3/UL Baso # (Auto) 0.05 10*3/UL WBC Morphology Comment Normal morphology (NORM) Plt Morphology Comment Normal morphology (NORM) RBC Morph Comment See comments (NORM) Sodium 139 (135-145) meq/L Potassium 4.0 (3.8-5.2) meq/L Chloride 106 (98-112) meq/L Carbon Dioxide 26 (23-33) meq/L Anion Gap 7 (5-20) BUN 4 L (7-22) mg/dL Creatinine 0.3 L (0.70-1.50) mg/dL Estimated GFR > 60 (>60 ml/min/1.73m(2)) BUN/Creatinine Ratio 13.33 (6-20) Glucose 79 (78-110) mg/dL Calculated Osmolality 283.0 (267-292) mOsm/kg Calcium 7.6 L (8.7-10.7) mg/dL Magnesium 1.8 (1.6-2.4) mg/dL Objective : Exam - General General Appearance: No Acute Distress, Cooperative Additional General Exam Details: Vital Signs (24 hrs) Temp Pulse Pulse Resp BP Pulse Ox 06/30/17 11:26 98.4 F 70 18 164/87 95 06/30/17 08:27 97.8 F 76 18 147/99 92 06/30/17 07:00 70 18 06/30/17 04:05 98.3 F 70 20 145/89 95 06/30/17 01:00 98.4 F 74 20 138/88 95 06/29/17 19:41 98.4 F 100 21 158/98 93 06/29/17 16:34 98.9 F 92 20 127/81 97 - Eye Eye Exam: No Scleral Icterus - Respiratory Respiratory Exam: Clear to Auscultation - Bilaterally, Breathing Non Labored - Cardiovascular Cardiovascular Exam: RRR, No Murmur, No Clicks, No Gallops, No Rubs, No JVD - GI/Abdominal GI/Abdominal Exam: Normal Bowel Sounds, Non Tender, Non Distended, Soft Additional GI/Abdominal Exam Details: incision dressed - Extremities Extremities Exam: No Clubbing Present, No Edema Present, No Cyanosis Present - Neurological Neurological Exam: Alert, Oriented x 3, No Facial Droop, Speech Intact / Clear Additional Neurological Exam Details: weak right side Assessment and Plan - Patient Problems (1) Fluid overload Current Visit: Yes Status: Acute Code(s): E87.70 - Fluid overload, unspecified Qualifiers: Hypervolemia type: other Qualified Code(s): E87.79 - Other fluid overload (2) Malnutrition Current Visit: Yes Status: Acute Code(s): E46 - Unspecified protein-calorie malnutrition Qualifiers: Malnutrition type: protein-calorie malnutrition Protein-calorie malnutrition severity: moderate Qualified Code(s): E44.0 - Moderate protein- calorie malnutrition (3) S/P small bowel resection Current Visit: Yes Status: Acute Code(s): Z90.49 - Acquired absence of other specified parts of digestive tract (4) Small bowel obstruction Current Visit: Yes Status: Resolved Priority: High Code(s): K56.609 - Unspecified intestinal obstruction, unspecified as to partial versus complete obstruction (5) Seizure disorder Current Visit: Yes Status: Chronic (6) Hypotension Current Visit: Yes Status: Resolved Code(s): I95.9 - Hypotension, unspecified Qualifiers: Hypotension type: unspecified hypotension type Qualified Code(s): I95.9 - Hypotension, unspecified (7) Post-operative hemorrhage Current Visit: Yes Status: Resolved Priority: High Onset Date: 06/23/17 Qualifiers: Surgical complication system/body Area: digestive system Procedure type: digestive system Qualified Code(s): K91.840 - Postprocedural hemorrhage of a digestive system organ or structure following a digestive system procedure (8) History of CVA (cerebrovascular accident) Current Visit: Yes Status: Acute Code(s): Z86.73 - Personal history of transient ischemic attack (TIA), and cerebral infarction without residual deficits (9) Hypertension Current Visit: Yes Status: Acute Code(s): I10 - Essential (primary) hypertension Qualifiers: Hypertension type: essential hypertension Qualified Code(s): I10 - Essential (primary) hypertension (10) Right hemiparesis Current Visit: No Status: Chronic - Assessment / Plan Additional Assessment/Plan Details: fluid overload is improving, over 3000 out today, down to 147 lbs diurese aggressively one more time today. check labs tomorrow had urinary retention and had to put catheter back in earlier this hospital stay , so I think this is related to prior CVAI started flomax. can probably discontinue catheter in a day or two. labs in AM, replace electrolytes as necessary PT and OT probable swing bed this week
[2017-06-30] MEDS: LEVALBUTEROL HCL 0.63 MG/3 ML NEB PRN (21:20)
[2017-07-01] MEDS: Metoclopramide Inj 10 MG/2 ML VIAL IVP SCH ×2 (04:23→10:36)
[2017-07-01] MEDS: NORMAL SALINE 10 ML SYRINGE FLUSH IVP PRN (04:23)
[2017-07-01 05:00] LABS: BASOPHILS # (AUTO) 0.06 10*3/UL; BASOPHILS % (AUTO) 1.1 % (0-1); EOSINOPHILS # (AUTO) 0.39 10*3/UL; EOSINOPHILS % (AUTO) 7.4 % (0-8); Hematocrit [HCT] 33.3 % (42.0-52.0); Hemoglobin [HGB] 10.5 g/dL (14.0-18.0); LYMPHOCYTES # (AUTO) 0.65 10*3/uL; MEAN CORPUSCULAR HEMOGLOBIN 27.3 PG (27-31); MEAN CORPUSCULAR HGB CONC 31.5 g/dL (33-37); MEAN CORPUSCULAR VOLUME 86.5 FL (80-90); MEAN PLATELET VOLUME 9.4 FL (7.4-12.2); MONOCYTES # (AUTO) 0.49 10*3/UL (0.3-0.8); MONOCYTES % (AUTO) 9.3 % (5-15); NEUTROPHILS % (AUTO) 68.4 % (50-80); RED BLOOD COUNT 3.85 10^6/uL (4.70-6.10)
[2017-07-01 05:07] LABS: BLOOD UREA NITROGEN 9 mg/dL (7-22); SERUM ALBUMIN 2.5 g/dL (3.5-4.8)
[2017-07-01 05:21] LABS: PLATELET MORPHOLOGY COMMENT NORMAL MORPHOLOGY (NORM); RBC MORPHOLOGY COMMENT NORMAL MORPHOLOGY (NORM); WBC MORPHOLOGY COMMENT NORMAL MORPHOLOGY (NORM)
[2017-07-01] MEDS: LEVALBUTEROL HCL 0.63 MG/3 ML NEB PRN ×3 (07:15→19:08)
[2017-07-01] MEDS: TAMSULOSIN 0.4 MG CAPSULE PO SCH (08:37)
[2017-07-01] MEDS: ASPIRIN EC 81 MG TABLET PO SCH (08:38)
[2017-07-01] MEDS: MULTIVITAMIN PO SCH (08:38)
[2017-07-01] MEDS: Potassium Chloride Tab 10 MEQ TAB PO SCH ×2 (08:38→20:31)
[2017-07-01] MEDS: LevETIRAcetam Tab 500 MG TABLET PO SCH ×2 (08:38→20:32)
[2017-07-01] MEDS: FUROSEMIDE 40 MG TABLET PO SCH ×2 (08:38→13:22)
[2017-07-01] MEDS: IRON MINERALS PO SCH (08:38)
[2017-07-01] MEDS: PROPRANOLOL ER 60 MG CAPSULE PO SCH ×2 (08:38→20:32)
[2017-07-01] MEDS: ASCORBIC ACID 500 MG TABLET PO SCH (08:38)
--- NOTE | 2017-07-01 10:33 | PDOC(PROG) ---
Subjective Post Op Day: postop day 8/9 Pain Management: PO Tolentino Catheter: Yes Diet: Regular Date and Time of Service: 07/01/2017 at 1035 Interval History: Patient is she doing well having no problems having daily bowel movements. He has no abdominal pain Objective : Data - Labs CBC and BMP: 07/01/17 04:25 07/01/17 04:25 - Vital Signs Vital Signs and I&O: Vital Signs - Last Taken Temperature 97.6 F 07/01/17 07:47 Pulse Rate 89 07/01/17 07:47 Respiratory Rate 17 07/01/17 07:47 Blood Pressure 113/69 07/01/17 07:47 Pulse Ox 96 07/01/17 07:47 Intake and Output (24hr x 4 totals) 06/29/17 06/30/17 07/01/17 07/02/17 05:59 05:59 05:59 05:59 Intake Total 1548 / 1548 4340 / 4340 1190 / 1190 570 / 570 Output Total 3712 / 3712 3600 / 3600 6950 / 6950 Balance -2164 / -2164 740 / 740 -5760 / -5760 570 / 570 Objective : Exam - GI/Abdominal GI/Abdominal Exam: Normal Bowel Sounds, Non Tender, Non Distended Assessment and Plan - Patient Problems (1) S/P small bowel resection Current Visit: Yes Status: Acute Code(s): Z90.49 - Acquired absence of other specified parts of digestive tract - Assessment / Plan Additional Assessment/Plan Details: Overall patient is doing well. He is continuing be medically managed. Discharge when he is cleared medically
[2017-07-01] MEDS ORDERED: Sodium Chloride 0.9% 250 ML IV ONE (10:56)
--- NOTE | 2017-07-01 11:46 | OT.PROG ---
Progress Note Progress Note: Occupational Therapy; S: Pt. reports that he is ready to go for a walk this morning and he has been feeling better. O: Pt. was seen from 1030 to 1100 for skilled therapy session. Pt. completed sit to stand from recliner with mod. A and ambulated X 300' with CGA and min. A at times to maintain balance. Pt. required mod. verbal cues to keep 4pt. walker on the ground during ambulation as he wanted to pick it up and walk and verbal cues to slow down as well. Following therapy session, pt. returned to bed. Pt. did become angry and threw his mail in the corner of the room, when the therapist would not let him use his pocket knife while sitting in the air bed. Pt. was left with call light and O2 and nursing was notified of pt.'s outburst. A: Pt. may benefit from a FWW during functional mobility tasks. Pt. continued to require mod. verbal cues for safety today. Pt. continues to benefit from skilled care to improve safety, ADL performance, and strength. P: Continue POC. ADI Jimenez/Xochilt
--- NOTE | 2017-07-01 13:55 | PDOC(PROG) ---
Interval History: Patient is doing well has no complaints he is wondering why he is not home yet I told him that physical therapy is recommended that he is still not safe in an week and needs more physical therapy he states he does not agree he has had a stroke since the age of 14 and the he said he has been getting around pretty well and going to the bathroom on his own. Denies chest pain nausea vomiting or shortness of breath Objective : Data - Labs CBC and BMP: 07/01/17 04:25 07/01/17 04:25 Objective : Exam - General General Appearance: Cooperative - Neck Neck Exam: Normal Inspection, Full ROM, No Tenderness - Respiratory Respiratory Exam: Clear to Auscultation - Bilaterally, Breathing Non Labored, Normal To Percussion, Normal to Percussion and Palpation - Cardiovascular Cardiovascular Exam: RRR, No Murmur, No Clicks, No Gallops, No Rubs, PMI Non- Displaced - GI/Abdominal GI/Abdominal Exam: Normal Bowel Sounds, Non Tender, Non Distended, Soft, No Masses, No Hepatomegaly, No Splenomegaly, No Organomegaly Assessment and Plan - Patient Problems (1) Seizure disorder Current Visit: Yes Status: Chronic (2) Right hemiparesis Current Visit: No Status: Chronic (3) Small bowel obstruction Current Visit: Yes Status: Resolved Priority: High Code(s): K56.609 - Unspecified intestinal obstruction, unspecified as to partial versus complete obstruction (4) Hypertension Current Visit: Yes Status: Acute Code(s): I10 - Essential (primary) hypertension Qualifiers: Hypertension type: essential hypertension Qualified Code(s): I10 - Essential (primary) hypertension (5) Hypotension Current Visit: Yes Status: Resolved Code(s): I95.9 - Hypotension, unspecified Qualifiers: Hypotension type: unspecified hypotension type Qualified Code(s): I95.9 - Hypotension, unspecified (6) Malnutrition Current Visit: Yes Status: Acute Code(s): E46 - Unspecified protein-calorie malnutrition Qualifiers: Malnutrition type: protein-calorie malnutrition Protein-calorie malnutrition severity: moderate Qualified Code(s): E44.0 - Moderate protein- calorie malnutrition (7) Post-operative hemorrhage Current Visit: Yes Status: Resolved Priority: High Onset Date: 06/23/17 Qualifiers: Surgical complication system/body Area: digestive system Procedure type: digestive system Qualified Code(s): K91.840 - Postprocedural hemorrhage of a digestive system organ or structure following a digestive system procedure (8) History of CVA (cerebrovascular accident) Current Visit: Yes Status: Acute Code(s): Z86.73 - Personal history of transient ischemic attack (TIA), and cerebral infarction without residual deficits (9) Fluid overload Current Visit: Yes Status: Acute Code(s): E87.70 - Fluid overload, unspecified Qualifiers: Hypervolemia type: other Qualified Code(s): E87.79 - Other fluid overload (10) S/P small bowel resection Current Visit: Yes Status: Acute Code(s): Z90.49 - Acquired absence of other specified parts of digestive tract - Assessment / Plan Additional Assessment/Plan Details: Patient has been diuresed around 3 L I will DC his Tolentino most likely a baseline continue PT OT will discuss case with them tomorrow since the patient is wanting to be discharged home we will see if he can do outpatient physical therapy otherwise I discussed the case with Dr. kelley Gu[facility] general surgery and he is okay to go home from his standpoint
[2017-07-01] MEDS ORDERED: POTASSIUM CHLORIDE 20 MEQ TAB PO SCH (22:00)
[2017-07-01] MEDS ORDERED: TAMSULOSIN 0.4 MG CAPSULE PO ONE (23:47)
[2017-07-02 05:38] LABS: BLOOD UREA NITROGEN 13 mg/dL (7-22); SERUM ALBUMIN 2.3 g/dL (3.5-4.8)
[2017-07-02] MEDS ORDERED: POTASSIUM CHLORIDE 20 MEQ TAB PO SCH (07:00)
[2017-07-02] MEDS: LEVALBUTEROL HCL 0.63 MG/3 ML NEB PRN ×2 (07:08→12:53)
[2017-07-02] MEDS: FUROSEMIDE 40 MG TABLET PO SCH ×2 (07:15→15:59)
[2017-07-02] MEDS: PROPRANOLOL ER 60 MG CAPSULE PO SCH (08:28)
[2017-07-02] MEDS: ASCORBIC ACID 500 MG TABLET PO SCH (08:28)
[2017-07-02] MEDS: TAMSULOSIN 0.4 MG CAPSULE PO SCH (08:28)
[2017-07-02] MEDS: ASPIRIN EC 81 MG TABLET PO SCH (08:28)
[2017-07-02] MEDS: LevETIRAcetam Tab 500 MG TABLET PO SCH (08:28)
[2017-07-02] MEDS: IRON MINERALS PO SCH (08:29)
[2017-07-02] MEDS: MULTIVITAMIN PO SCH (08:29)
[2017-07-02 11:13] VITALS: BP 109/78; TEMP 97.1
[2017-07-02] MEDS ORDERED: [UNRECOGNIZED DRUG - OTHER] PRIMARY IV ONE (11:25)
[2017-07-02] MEDS ORDERED: Sodium Chloride 0.9% 500 ML ONE (11:25)
[2017-07-02] MEDS ORDERED: Sodium Chloride 0.9% 500 ML PRIMARY IV ONE (11:30)
--- NOTE | 2017-07-02 11:55 | OT PM DAY ---
Diagnosis : Small Bowel Resection/Weakness PM - Occupational Therapy S: The patient reports no new changes. O: The patient participated in upper extremity strengthening and functional reaching activities. He sat edge of bed to work on diagonal reaching patterns. We worked on trying to don and doff socks; however, the patient had difficulty with this today secondary to his incision. The patient did participate in biceps curls with two pounds with his good arm. He received range of motion to the right arm. A: The patient still requires assistance. P: Continue seeing patient BID during the week and one time per day over the weekend for upper extremity strengthening, ADLs, and overall functional mobility. MTDD
--- NOTE | 2017-07-02 11:57 | PT.PROG ---
Progress Note Progress Note: S. Patient stated that he is feeling a little better today. O. Patient ambbulated 175 feet to the therapy gym where he performed seated exercises in the form of; long arc quads, heel toe raises, marches, hip abduction/adduction, sit to stands all x 10 bilaterally Patient ambulated 175 feet back to his room where he was left in chair with alarm and call light. A. Patient tolerated therapy well, he continues to struggle with weakness and fatigues easily, he would continue to benefit from skilled therapy to increase strength and endurance. P. Continue POC.
[2017-07-02] MEDS: Potassium Chloride Tab 10 MEQ TAB PO SCH (12:31)
[2017-07-02 12:54] VITALS: RESP 20; O2SAT 96
--- NOTE | 2017-07-02 12:59 | PDOC(PROG) ---
Subjective Post Op Day: 03/10 Pain Management: no pain medications. Tolentino Catheter: No Flatus: Yes Diet: Regular Ambulating: Yes Date and Time of Service: 07/02/2017 12:40 PM Interval History: Overall he is doing well without complaints or problems. Just finished lunch. Reports he's had two bowel movements today. He is passing gas. He is not nauseated or vomiting. He denies any significant abdominal pain. Main problem is inability to void. He's had the catheter pulled and replaced I believe 3 times this admission. He was started on Flomax. He reports he's had trouble voiding for a while. Objective : Data - Labs CBC and BMP: 07/01/17 04:25 07/02/17 05:12 - Vital Signs Vital Signs and I&O: Vital Signs - Last Taken Temperature 97.1 F 07/02/17 11:11 Pulse Rate 76 07/02/17 11:11 Respiratory Rate 17 07/02/17 11:11 Blood Pressure 109/78 07/02/17 11:11 Pulse Ox 97 07/02/17 11:11 Intake and Output (24hr x 4 totals) 06/30/17 07/01/17 07/02/17 07/03/17 05:59 05:59 05:59 05:59 Intake Total 4340 / 4340 1190 / 1190 1700 / 1700 490 / 490 Output Total 3600 / 3600 6950 / 6950 700 / 700 Balance 740 / 740 -5760 / -5760 1000 / 1000 490 / 490 Objective : Exam - General General Appearance: No Acute Distress, Cooperative - Respiratory Respiratory Exam: Clear to Auscultation - Bilaterally, Breathing Non Labored - Cardiovascular Cardiovascular Exam: RRR, No Murmur - GI/Abdominal GI/Abdominal Exam: Non Tender, Distended Additional GI/Abdominal Exam Details: The abdomen is full. It is soft. There are hyperactive bowel tones. There are some loud rushes. He is not tender. The incision looks good. The jun are still in place. - Rectal Rectal Exam: Deferred - Neurological Neurological Exam: Alert, Oriented x 3 - Psychiatric Psychiatric Exam: Normal Affect, Normal Mood Assessment and Plan - Patient Problems (1) Postoperative ileus Current Visit: Yes Status: Acute Priority: Medium Onset Date: ~06/26/17 Comment: Largely resolved. Patient is passing gas and having bowel movements. He is tolerating a regular diet. His abdomen is somewhat distended. Continue to monitor. Code(s): K91.89 - Other postprocedural complications and disorders of digestive system; K56.7 - Ileus, unspecified (2) Post-operative hemorrhage Current Visit: Yes Status: Resolved Priority: High Onset Date: 06/23/17 Comment: Resolved. Qualifiers: Surgical complication system/body Area: digestive system Procedure type: digestive system Qualified Code(s): K91.840 - Postprocedural hemorrhage of a digestive system organ or structure following a digestive system procedure (3) Small bowel obstruction Current Visit: Yes Status: Resolved Priority: High Comment: Resolved. Code(s): K56.609 - Unspecified intestinal obstruction, unspecified as to partial versus complete obstruction
--- NOTE | 2017-07-02 13:17 | OT.PROG ---
Progress Note Progress Note: S: pt stated he had an ok weekend. He reported that he needed to use restroom as soon as he sat up. O: pt was seen in his room and was in supine position. He needed min A to complete transition from supine to EOB. He then began to place on shorts Ind but needed to use restroom before finishing job. He then completed toileting and transfer with MOd Ind as he took longer to complete. He complete hygiene at sink Ind. he transferred back to his bed and completed donning of pull up with min A and shorts with MIn A. He completed UE donning of shirt with mod INd. He then transferred down to therapy only using walker about 10% of time and other time he just carried it. He then completed 7 min on UE bike to increase activity tolerance. PT took over treatment at this point. OT returned him to his room where he completed and demonstrated doff/donning of socks Ind. He was left in his chair with call light within reach and alarm on. A: pt may demonstrated ability to completed donning of socks, but may benefit from therapy to increase his ability to kris other LE garments such as pants more INd. He chooses not to use walker, rather carry it, although it is believed that he should still use it during transfers. P: continue per POC.
--- NOTE | 2017-07-02 15:01 | DCSUMMARY ---
Hospitalization Summary Hospital Course: Final Discharge Diagnosis: Current Visit Problems Problem Status Onset Code Small bowel obstruction Resolved K56.609 Hypertension Acute I10 Small bowel obstruction Acute K56.609 Hypotension Resolved I95.9 Malnutrition Acute E46 Post-operative hemorrhage Resolved 06/23/17 Shortness of breath Resolved R06.02 DVT prophylaxis Acute History of CVA (cerebrovascular accident) Acute Z86.73 Fluid overload Acute E87.70 S/P small bowel resection Acute Z90.49 Postoperative ileus Acute ~06/26/17 K91.89, K56.7 Seizure disorder Chronic Diagnostic Data, Laboratory Data, and Procedures of Signifigance: History and Physical pertinent to Admission: Past Medical History Medical History: 1. 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 2. Diabetes mellitus type II on no medications. 3. Gout. 4. Hypertension. 5. Hyperlipidemia. 6. Seizure disorder. 7. Admission for cellulitis March 2017. 8. Upper GI study in 2014 showed marked thickening of the mucosal the loops of the distal jejunum and ileum with narrowing of the caliber of the lumen. The lumen had a nodular pattern. The pattern was consistent with Crohn's disease of the adult onset type. Patient is on sulfasalazine but he doesn't know the reason for being on it. Surgical History: 1. Colonoscopy. 2. Cataract extraction. Pertinent Family History: States that his father passed on due to heart issues. His mother is alive and apparently in the [facility]pc at this time. Past Social History: Quit smoking over a year ago now. Drinks occasional alcohol. Lives alone. No children. Tobacco Use: Former Smoker In the Past 12 Months, Have Used or Abuse Any of the Following Substance: Marijuana Alcohol Use: None Course of Hospitalization: Is a very nice 61-year-old gentleman with past medical history significant for previous CVA with chronic right-sided weakness and some speech difficulty at age 14, diabetes diet controlled, hypertension, seizure disorder, was admitted with abdominal pain CT scan revealed a small bowel obstruction he underwent surgery with small bowel resection most likely consistent with Crohn's as per Dr. Regalado he did have a postop ileus which resolved patient is eating and having bowel movements and was having some urinary retention also was diuresed about 3 L during his hospital stay and patient is back to his baseline he was started on the Flomax he did urinate today without his catheter was very happy about this. Discussed the case with [facility] patient was able to do his daily activities without any ear problems physical therapy is recommended that the patient have a home eval patient refused this and as decided to be going home he will also decide if he wants to do outpatient physical therapy or not a prescription was given to him he is also refused any other services from social service. Again patient is stable from a status post surgical standpoint he will resume his usual medication I did send in the prescription for Flomax I did the recommend he follow-up his primary care physician and if any other problems urinating he should let us primary care physician know and possibly follow-up with urology. Discussed with patient and nursing in general surgery. Patient is extremely happy to be discharged home On the date of discharge, the patient was examined: Gen.: No acute distress, alert, nontoxic Heart: Regular rate and rhythm, no murmurs, clicks, gallops, or rubs Lungs: Clear to auscultation bilaterally, breathing is nonlabored Abdomen/GI: Normal tones on auscultation, soft, nontender, nondistended Musculoskeletal/extremities: No clubbing, cyanosis, or edema Vitals reviewed and are listed below Assessment and Plan: 1. As per discharge assessments above 2. Disposition: Home 3. Condition on discharge, stable and improved. 4. Diet: regular diet I've asked the patient is able to cook with himself he cooks different meals like hernandez and eggs soups and is been doing that for a long time and he has no problems doing these activities 5. Activities: resume normal activities 6. Follow-Up: 1. PCP 2. 7. Medications at the Time of Discharge: Home Medications Medication Instructions Recorded Confirmed Type Aspirin [Aspir 81] 81 mg ORAL QD tab 06/19/11 06/22/17 History furosemide 40 mg tablet 40 mg PO BID #60 tab 03/06/17 06/22/17 Rx potassium chloride ER 10 mEq 10 meq PO BID #60 cap 03/06/17 06/22/17 Rx capsule,extended release sulfasalazine 500 mg tablet 1,000 mg PO BID #120 tab 03/06/17 06/22/17 Rx ascorbic acid (vitamin C) 500 mg 500 mg PO QD #90 tab 03/11/17 06/22/17 Rx tablet levetiracetam 500 mg tablet 1,000 mg PO BID #120 tab 03/15/17 06/22/17 Rx ferrous gluconate 324 mg (38 mg 324 mg PO QD #30 tab 03/18/17 06/22/17 Rx iron) tablet omega-3 fatty acids-fish oil 340 1 cap PO DAILY cap 03/18/17 06/22/17 History mg-1,000 mg capsule propranolol 60 mg tablet 60 mg PO BID #180 tab 05/17/17 06/22/17 Rx Ascorbic Acid [Vitamin C] 500 mg PO DAILY tab 07/02/17 Rx Tamsulosin HCl [Flomax] 0.4 mg PO DAILY #30 cap 07/02/17 Rx 3 Generic Name Dose Route Start Last Admin Trade Name Freq PRN Reason Stop Dose Admin Ascorbic Acid 500 mg 06/29/17 12:15 07/02/17 08:28 Vitamin C PO 500 mg DAILY SOBEIDA Administration Aspirin 81 mg 06/29/17 12:15 07/02/17 08:28 Aspirin Ec PO 81 mg DAILY SOBEIDA Administration Furosemide 40 mg 06/29/17 13:00 07/02/17 07:15 Lasix PO 40 mg BID@0700,1300 SOBEIDA Administration Acetaminophen 1,000 mg in 100 mls @ 400 mls/hr 06/25/17 14:00 Ofirmev 1000mg Inj IV Q8H PRN Pain Iron/Multivitam/Minerals/Folic Acid 1 each 06/28/17 17:00 07/02/17 08:29 Flintstones Complete PO 1 each DAILY SOBEIDA Administration Levalbuterol HCl 0.63 mg 06/25/17 14:00 07/02/17 12:53 Xopenex Neb Soln NEB 0.63 mg RTQ6H PRN Administration Shortness of Breath Levetiracetam 1,000 mg 06/29/17 21:00 07/02/17 08:28 Keppra Tab PO 1,000 mg BID SOBEIDA Administration Lidocaine HCl 0.5 ml 06/25/17 14:00 Lidocaine Buffered Inj SUBD ONCE PRN IV Starts Lidocaine HCl 10 ml 06/26/17 04:06 Xylocaine Uro-Ject 2% TOPICAL ONCE PRN Discomfort catheter insertion Ondansetron HCl 4 mg 06/25/17 14:00 Zofran Inj IVP Q4H PRN NAUSEA / VOMITING Potassium Chloride 10 meq 06/29/17 12:45 07/02/17 12:31 Klor-Con PO Not Given BID SOBEIDA Potassium Chloride 40 meq 07/01/17 22:00 07/01/17 23:30 Klor-Con PO 40 meq ONCE SOBEIDA Administration Potassium Chloride 40 meq 07/02/17 07:00 07/02/17 07:16 Klor-Con PO 40 meq BID MEALS SOBEIDA Administration Propranolol HCl 60 mg 06/29/17 21:00 07/02/17 08:28 Inderal La PO 60 mg BID SOBEIDA Administration Sodium Chloride 5 - 20 ml 06/25/17 14:00 07/01/17 04:23 Saline Flush IVP 10 ml BID PRN Administration Flush Tamsulosin HCl 0.4 mg 06/28/17 21:00 07/02/17 08:28 Flomax PO 0.4 mg DAILY SOBEIDA Administration 8. Time, care, counseling and coordination of care for this discharge is greater than 30 minutes. Exam - Vitals Vital Signs: Vital Signs Temperature 97.1 F Temperature Source Temporal Artery Scan Pulse Rate [Telemetry Left] 120 Pulse Rate [Apical] 80 Pulse Rate [Pulse Oximeter] 76 Pulse Rate 74 Respiratory Rate 20 Blood Pressure [Left Radial 109/78 Artery] Blood Pressure [Left Calf] 119/100 Blood Pressure [Right Arm] 113/68 Blood Pressure [Left Arm] 117/80 Blood Pressure 128/93 Pulse Ox 96 Oxygen Flow Rate 1 Oxygen Delivery Method Room Air Height 5 ft 7 in Weight 137 lb 9.6 oz Patient Problems - Patient Problem List (1) Seizure disorder Current Visit: Yes Status: Chronic Category: Medical (2) Right hemiparesis Current Visit: No Status: Chronic Comment: Result of CVA; He has regained speech and ability to walk, but no meaningful use of the R upper extremity. Category: Medical (3) Small bowel obstruction Current Visit: Yes Status: Resolved Priority: High Code(s): K56.609 - Unspecified intestinal obstruction, unspecified as to partial versus complete obstruction Category: Medical (4) Hypertension Current Visit: Yes Status: Acute Code(s): I10 - Essential (primary) hypertension Qualifiers: Hypertension type: essential hypertension Qualified Code(s): I10 - Essential (primary) hypertension Category: Medical (5) Hypotension Current Visit: Yes Status: Resolved Code(s): I95.9 - Hypotension, unspecified Qualifiers: Hypotension type: unspecified hypotension type Qualified Code(s): I95.9 - Hypotension, unspecified Category: Medical (6) Malnutrition Current Visit: Yes Status: Acute Code(s): E46 - Unspecified protein-calorie malnutrition Qualifiers: Malnutrition type: protein-calorie malnutrition Protein-calorie malnutrition severity: moderate Qualified Code(s): E44.0 - Moderate protein- calorie malnutrition Category: Medical (7) Post-operative hemorrhage Current Visit: Yes Status: Resolved Onset Date: 06/23/17 Priority: High Qualifiers: Surgical complication system/body Area: digestive system Procedure type: digestive system Qualified Code(s): K91.840 - Postprocedural hemorrhage of a digestive system organ or structure following a digestive system procedure Category: Medical (8) History of CVA (cerebrovascular accident) Current Visit: Yes Status: Acute Code(s): Z86.73 - Personal history of transient ischemic attack (TIA), and cerebral infarction without residual deficits Category: Medical (9) Fluid overload Current Visit: Yes Status: Acute Code(s): E87.70 - Fluid overload, unspecified Qualifiers: Hypervolemia type: other Qualified Code(s): E87.79 - Other fluid overload Category: Medical (10) S/P small bowel resection Current Visit: Yes Status: Acute Code(s): Z90.49 - Acquired absence of other specified parts of digestive tract Category: Surgical
--- NOTE | 2017-07-02 16:22 | PT.PROG ---
Progress Note Progress Note: Patient didn't want to do therapy due to being discharged soon. Patient was fitted for a ROHO cushion and instructed on proper use.
== END 2017-07-02 16:06 | disposition home or self-care (01) | DRG 330 ==
LOC: ER 13:50 → MED/SURG 17:47 → ICU 06-23 04:20 → MED/SURG 06-25 13:36
PROVIDERS: ADMIT Internal Medicine; ATTEND Internal Medicine
PROC: GELAPAR (ICD-10-PCS; 2017-06-22 21:00)

== ENCOUNTER 2018-08-22 11:04 | Inpatient (IN) ==
--- NOTE | 2018-08-22 11:23 | PDOC ---
Fall HPI - General Chief Complaint: Fall Stated Complaint: fall right hip pain Date Seen by Provider: 08/22/18 Time Seen by Provider: 11:22 Source: POSITIVE: Patient, EMS Exam Limitations: POSITIVE: No limitations Nurse's Notes Reviewed & Considered: Yes EMS Report Reviewed & Considered: Verbal - History of Present Illness Initial Comments: This is a well-developed, well-nourished, 63-year-old male, complaining of right hip pain. Patient with history of CVA when he was 14 presents today after experiencing a fall in his home. He states he stood up and for unknown reasons fell resulting in pain and deformity of his right hip with shortening and external rotation of his right leg. He denies any other injury pattern, denies any headache, no sore throat, no rhinorrhea, no chest pain or shortness of breath, no cough, no nausea vomiting or diarrhea, no hematuria or dysuria, no rashes, no myalgias. Have you received a tetanus shot in the past 10 years?: Unknown Body Location Affected: REPORTS: Lower Extremity (R) Timing: REPORTS: Abrupt Duration: 1/2 hour Severity: Severe Location of Fall: REPORTS: Home Quality: REPORTS: "Pain" Associated Symptoms: DENIES: Dazed, Seizure, Trouble Breathing, Memory Impairment, Recalls Injury, Recalls Coming to ER, Blow to Head, Lost Consciousness, Other Location of Injuries / Pain: REPORTS: Right, Hip - Patient Home Medications Home Medications: Home Medications ascorbic acid (vitamin C) 500 mg tablet 500 mg PO DAILY tab 07/12/17 omega-3 fatty acids-fish oil 340 mg-1,000 mg capsule 1 cap PO DAILY cap 07/12/17 furosemide 40 mg tablet 40 mg PO BID #180 tab 01/06/18 potassium chloride ER 10 mEq capsule,extended release 10 meq PO BID #180 cap 01/06/18 levetiracetam 500 mg tablet 1,000 mg PO BID #360 tab 03/18/18 aspirin 81 mg tablet,delayed release 81 mg PO DAILY 04/23/18 propranolol 60 mg tablet 60 mg PO BID #180 tab 05/26/18 RX: Multivitamin Tab [Thera Tab] 1 tab PO DAILY 08/22/18 Vit B Comp/C/Folic/Iron/Vit E [Vitamin B Complex Tablet] 1 tab PO DAILY 08/22/18 - Patient Allergies Allergies/Adverse Reactions: Allergies Allergy/AdvReac Type Severity Reaction Status Date / Time No Known Drug Allergies Allergy NOT Verified 08/22/18 11:16 APPLICABLE Past Medical History - heen HEENT History: Cataracts Additional HEENT History: B CATARACT SURGERY Cardiovascular History: Hypertension, Hyperlipidemia Additional Cardiovasular History: NOTED HYPOTENSIVE AT 02/[address] GONZALEZ. SEE COPY OF NOTE FROM DR GONZALEZ FOR MED ADJUSTMENT Respiratory History: Denies History Gastrointestinal History: Crohn's Additional Gastrointestinal History: SMALL BOWEL OBSTRUCTION/DIARRHEA/OVERWEIGHT(hx from ?). very thin 06/22/17 Genitourinary History: Denies History Endocrine History: Other (please comment) Additional Endocrine History: pt states h/o DMII Musculoskeletal History: Limited ROM, Other (please comment) Prosthesis or Implant: No Additional Musculoskeletal History: LOWER EXTREMETY SWELLING Neurological History: CVA, Seizures Additional Neurological History: LATE EFFECTS OF CEREBROVASCULAR DISEASE. 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 NOT HERE TO VERIFY. SPOKE WITH MEDICAL POA DENIES THIS AND DOESN'T THINK HE HAS History of Sexually Transmitted Diseases: No Cancer History: Denies History History of MDRO: No History of Other Communicable Diseases: No Alcohol Use: None In the Past 12 Months, Have Used or Abuse Any Substance: None Previous Surgical History: Yes Type / Date of Surgery: R GREAT TOE NAIL REMOVED [id number]/ COLONOSCOPY/ SMALL BOWEL RESECTION Anesthesia Reactions: No Malignant Hyperthermia: No Significant Family History: Heart disease, Cancer, Diabetes, Hypertension ROS - Limitations ROS Limitations: No Limitations Constitution: REPORTS: Denies Symptoms Cardiovascular: REPORTS: Denies Cardiac Symptoms Respiratory: REPORTS: Denies Resp Symptoms Neurological: REPORTS: Weakness (Right sided secondary to CVA 50 years ago.) Gastrointestinal: REPORTS: Denies GI Symptoms Endocrine: REPORTS: Denies Symptoms Musculoskeletal: REPORTS: Joint Pain (Right hip with shortening and external rotation of the right leg) Genitourinary: REPORTS: Denies Symptoms Eyes: REPORTS: Denies Symptoms ENT: REPORTS: Denies Symptoms Skin: REPORTS: Denies Skin Symptoms Lympathic: REPORTS: Denies Lympathic Symptoms Immunologic: POSITIVE: Denies Symptoms Psychiatric: POSITIVE: Denies Psych Symptoms Fall Physical Exam - General Appearance General Appearance: POSITIVE: Alert, Cooperative, No Acute Distress - HEENT HEENT: POSITIVE: Head Inspection Nml, Eyes Inspection Nml, Ears Inspection Nml, Nose Inspection Nml, Oral/Dental Inspect. Nml, Pharynx Inspect. Nml, PERRL, EOMI - Pupil Size Pupil Size: 5 mm: Bilateral - Neck Neck: POSITIVE: Non Tender, Painless ROM, Trachea Midline, Nexus Criteria Negative - Respiratory / CVS Respiratory / CVS: POSITIVE: Chest Non Tender, No Ecchymosis, Breath Sounds Normal, No Respiratory Distress, Heart Sounds Normal, Regular Rate/Rhythm Peripheral Pulses: Radial (R): 4+, Radial (L): 4+, Dorsalis-pedis (R): 4+, Dorsalis-pedis (L): 4+ - Abdomen Abdomen: Soft: (All Quadrants), Normal Bowel Sounds: (All Quadrants), Denies Tenderness: (All Quadrants), No Splenomegaly: (All Quadrants), No Hepatomegaly: (All Quadrants), No Guarding: (All Quadrants), No Rebound: (All Quadrants), No Palpable Pulse: (All Quadrants), No Palpabale Mass: (All Quadrants), No Distention: (All Quadrants), No Rigidity: (All Quadrants) - Neuro / Psych Neuro / Psych: POSITIVE: 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, 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 As Tested, Motor Normal, Sensation Normal, Mood Appropriate, Affect Appropriate - Skin Skin: POSITIVE: Intact, Warm, Dry - Back Back: POSITIVE: Normal Inspection, No CVA Tenderness, Non Tender, Painless ROM, No Vertebral Tenderness - Extremities Extremity Assessment: Non-Tender: (RUE), (LUE), (LLE), Normal ROM: (LLE), (LUE), (RUE), No Edema: (LUE), (RLE), (LLE), Normal Inspection: (LUE), (LLE), No Swelling: (LUE), (LLE), Pelvis Stable: (ALL), Normal Tendon Exam: (ALL), Tender: (RLE), Swelling: (RUE), Shortening of Extremity: (RLE), External Rotation of Extremity: (RLE), Bony Point Tenderness: (RLE), Unable / Painful to Bear Weight: (RLE) Joint Exam: POSITIVE: Unable to Bear Weight Procedures - Laceration/Wound Repair Did patient have a laceration repair: No Fall Progress - Results Reviewed by me Xrays/CTs/US Reviewed by me: Yes Discussed with Radiologist: Yes Lab Results Reviewed by Me: Yes CBC and BMP: 08/22/18 11:10 08/22/18 11:10 Lab Results:: Laboratory Results 08/22/18 08/22/18 08/22/18 11:10 11:10 11:10 WBC 5.43 RBC 5.32 Hgb 14.4 Hct 43.1 MCV 81.0 MCH 27.1 MCHC 33.4 RDW Std Deviation 50.1 H RDW Coeff of Sergo 17.0 H Plt Count 137 L MPV 9.7 Immature Gran % (Auto) 0.4 Neut % (Auto) 61.6 Lymph % (Auto) 21.4 Andrews % (Auto) 9.0 Eos % (Auto) 7.0 Baso % (Auto) 0.6 Immature Gran # (Auto) 0.02 Neut # (Auto) 3.35 Lymph # (Auto) 1.16 Andrews # (Auto) 0.49 Eos # (Auto) 0.38 Baso # (Auto) 0.03 WBC Morphology Comment Normal morphology Plt Morphology Comment Normal morphology RBC Morph Comment Normal morphology PT 9.9 INR 0.97 Sodium 142 Potassium 3.8 Chloride 102 Carbon Dioxide 28 Anion Gap 12 BUN 16 Creatinine 0.6 L Estimated GFR > 60 BUN/Creatinine Ratio 26.66 H Glucose 101 Calculated Osmolality 294.0 H Calcium 9.0 Magnesium 1.9 Total Bilirubin 0.8 AST 40 ALT 49 Alkaline Phosphatase 176 H Total Protein 6.9 Albumin 4.2 Globulin 2.6 Albumin/Globulin Ratio 1.60 EKG Interpreted/Reviewed By Me:: Yes (sinus rhythm, 68 bpm, no ST changes noted.) EKG Interpretation:: POSITIVE: Normal Sinus Rhythm, Normal ST/T - Patient's Progress Pain Medication Addressed: POSITIVE: Yes Re-Examine Time:: 12:36 Status: POSITIVE: Improved MDM / ED Course: Patient was evaluated, an IV started, blood drawn and sent to the lab for studies, x-ray of his right hip was obtained. Findings: CBC shows platelets 137 with normal white count hemoglobin and hematocrit normal also. PT is 9.9, INR 0.97. CMP shows a creatinine of 0.6. M agnesium is 1.9. X-ray of his right hip shows intertrochanteric fracture with minimal displacement. Assessment: Intertrochanteric hip fracture. Plan: Patient being admitted by the hospitalist. Dr. De La Cruz, the on-call orthopedic surgeon will be consult in on the floor. - Consult Consult (If Yes, Name of Consulting MD & Time Called): Yes (Dr. De La Cruz, Dr. Kat prajapati, 12:30 PM) Consulting MD will see pt:: POSITIVE: [facility] [place] Counseled: POSITIVE: Patient, RE: Lab Results, RE: Radiology Results, RE: DX, RE: Need for F/U Patient Care Time - Estimated PCT Patient Care Time (In Minutes): 30 Vital Signs - VS Reviewed Vital Signs Reviewed: Yes Discharge Clinical Impression: Hip fracture Discharge Disposition: Admit to Inpatient Condition: Stable Date Decision to Admit to Inpatient: 08/22/18 Time Decision to Admit to Inpatient: 12:36
[2018-08-22] MEDS ORDERED: KETOROLAC 15 MG/1 ML VIAL IVP ONE (11:29)
[2018-08-22] MEDS ORDERED: ONDANSETRON 4 MG/2 ML VIAL IVP ONE (11:29)
[2018-08-22] MEDS ORDERED: Sodium Chloride 0.9% 1,000 ML PRIMARY IV SCH (11:30)
--- NOTE | 2018-08-22 11:31 | EKG ---
[address] [address] Measurements Intervals Mccamey Rate: 68 P: 32 CT: 165 QRS: -23 QRSD: 79 T: 16 QT: 392 QTc: 409 Interpretive Statements SINUS RHYTHM Compared to ECG 06/23/2017 07:45:07 Sinus tachycardia no longer present Electronically Signed On 08-22-18 15:08:01 [facility] by Juwan Sanders [email or web address]
[2018-08-22 11:35] LABS: BASOPHILS # (AUTO) 0.03 10*3/UL; BASOPHILS % (AUTO) 0.6 % (0-1); EOSINOPHILS # (AUTO) 0.38 10*3/UL; Hematocrit [HCT] 43.1 % (42.0-52.0); Hemoglobin [HGB] 14.4 g/dL (14.0-18.0); LYMPHOCYTES # (AUTO) 1.16 10*3/uL; MEAN CORPUSCULAR HEMOGLOBIN 27.1 PG (27-31); MEAN CORPUSCULAR HGB CONC 33.4 g/dL (33-37); MEAN PLATELET VOLUME 9.7 FL (7.4-12.2); MONOCYTES # (AUTO) 0.49 10*3/UL (0.3-0.8); NEUTROPHILS # (AUTO) 3.35 10*3/UL; NEUTROPHILS % (AUTO) 61.6 % (50-80); PLATELET MORPHOLOGY COMMENT NORMAL MORPHOLOGY (NORM); RBC MORPHOLOGY COMMENT NORMAL MORPHOLOGY (NORM); RED BLOOD COUNT 5.32 10^6/uL (4.70-6.10); WBC MORPHOLOGY COMMENT NORMAL MORPHOLOGY (NORM)
[2018-08-22 11:41] LABS: BLOOD UREA NITROGEN 16 mg/dL (7-22); BUN/CREATININE RATIO 26.66 (6-20); SERUM ALBUMIN 4.2 g/dL (3.5-4.8)
--- NOTE | 2018-08-22 12:20 | DI ---
XR CXR 1VW 08/22/2018 11:29 AM [place]: [facility] [place] Comparison: 09/09/2017. Findings: A single portable frontal view of the chest is submitted. There is a right chest Port-A-Cat h with the tip projecting over the cavoatrial junction. Images demonstrate normal aeration without focal consolidation. There is no large pneumothorax or ple ural effusion. The cardiomediastinal silhouette is within normal limits for technique. The osseous st ructures are not significantly changed. Impression: No radiographic evidence of acute cardiopulmonary disease.
[2018-08-22] MEDS ORDERED: MORPHINE SULFATE 2 MG/1 ML IVP PRN (13:39)
[2018-08-22] MEDS ORDERED: ACETAMINOPHEN 325 MG TABLET PO PRN (13:39)
[2018-08-22] MEDS ORDERED: CALCIUM CARBONATE 500 MG (TUMS) CHEWABLE TABLET PO PRN (13:39)
[2018-08-22] MEDS ORDERED: DOCUSATE 100 MG CAPSULE PO PRN (13:39)
[2018-08-22] MEDS ORDERED: LIDOCAINE W/ SODIUM BICARB 0.5 ML SYR SUBD PRN (13:39)
[2018-08-22] MEDS ORDERED: ONDANSETRON 4 MG/2 ML VIAL IVP PRN (13:39)
[2018-08-22] MEDS ORDERED: LIDOCAINE HCL 2 % 10 ML JELLY URO-JECT TOPICAL PRN (13:39)
[2018-08-22] MEDS ORDERED: LIDOCAINE HCL 2 % 10 ML JELLY URO-JECT TOPICAL ONE (13:44)
--- NOTE | 2018-08-22 14:23 | DI ---
CT Lower Extremity WO Contrast 08/22/2018 12:33 PM HISTORY: [facility] [place] ^fracture ^3-D recons Comparison: Right hip x-ray from earlier the same day. Procedure: Noncontrast CT images were obtained through the right hip in the axial, sagittal, and jenniffer nal planes. Findings: There is a comminuted intertrochanteric fracture of the right femur. There is only minimal displacement of the fracture fragments, most notable at the level of the lesser trochanter and the at tachment of the iliopsoas tendon. Moderate edema extends proximally along the course of the tendon an d muscle without formed fluid collection. There is no significant angulation of the fracture fragment s. No other acute osseous abnormality is detected. There are early degenerative changes of the right hip. A corticated ossific fragment along the deep soft tissues of the lateral thigh is most likely th e sequela of remote trauma. The soft tissues are otherwise unremarkable. Impression: 1. Comminuted intertrochanteric fracture as above.
--- NOTE | 2018-08-22 15:15 | PDOC ---
HPI - History of Present Illness History of Present Illness: This very nice 61-year-old gentleman was admitted to the ER right hip pain. He said he is stood up and just fell and landed on his right hip and started having pain. Denies chest pain nausea vomiting he said he was just bad luck that he fell was not dizzy or pass out Past Medical History Medical History: 1. 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 2. Diabetes mellitus type II on no medications. 3. Gout. 4. Hypertension. 5. Hyperlipidemia. 6. Seizure disorder. 7. Admission for cellulitis March 2017. 8. Upper GI study in 2014 showed marked thickening of the mucosal the loops of the distal jejunum and ileum with narrowing of the caliber of the lumen. The lumen had a nodular pattern. The pattern was consistent with Crohn's disease of the adult onset type. Patient is on sulfasalazine but he doesn't know the reason for being on it. Surgical History: 1. Colonoscopy. 2. Cataract extraction. Pertinent Family History: States that his father passed on due to heart issues. His mother is alive and apparently in the custodial at this time. Past Social History: Quit smoking over a year ago now. Drinks occasional alcohol. Lives alone. No children. Tobacco Use: Current Some Day Smoker In the Past 12 Months, Have Used or Abuse Any of the Following Substance: None Medication / Allergies Home Medications: Home Medications Medication Instructions Recorded Confirmed Type ascorbic acid (vitamin C) 500 mg 500 mg PO DAILY tab 07/12/17 08/22/18 History tablet omega-3 fatty acids-fish oil 340 1 cap PO DAILY cap 07/12/17 08/22/18 History mg-1,000 mg capsule furosemide 40 mg tablet 40 mg PO BID #180 tab 01/06/18 08/22/18 Rx potassium chloride ER 10 mEq 10 meq PO BID #180 cap 01/06/18 08/22/18 Rx capsule,extended release levetiracetam 500 mg tablet 1,000 mg PO BID #360 tab 03/18/18 08/22/18 Rx aspirin 81 mg tablet,delayed 81 mg PO DAILY 04/23/18 08/22/18 History release propranolol 60 mg tablet 60 mg PO BID #180 tab 05/26/18 08/22/18 Rx Multivitamin Tab [Thera Tab] 1 tab PO DAILY 08/22/18 08/22/18 History Vit B Comp/C/Folic/Iron/Vit E 1 tab PO DAILY 08/22/18 08/22/18 History [Vitamin B Complex Tablet] Allergies/Adverse Reactions: Allergies Allergy/AdvReac Type Severity Reaction Status Date / Time No Known Drug Allergies Allergy NOT Verified 08/22/18 11:16 APPLICABLE Review of Systems - Review of Systems All Systems: Reviewed & No Additional Complaints Except as Stated - Respiratory Respiratory: DENIES: Negative System Review, Cough, Sputum, Dyspnea At Rest, Dyspnea with Exertion, Pleuritic Pain, Hemoptysis, Wheezing, Other, See HPI - Cardiovascular Cardiovascular: DENIES: Negative System Review, Chest Pain, Edema, Syncope, Palpitations, Orthopnea, Paroxysmal Nocturnal Dyspnea, Other, See HPI - Gastrointestinal Gastrointestinal / Abdominal: DENIES: Negative System Review, Nausea, Vomiting, Diarrhea, Constipation, Abdominal Pain, Bloody Stool, Poor Appetite, Heartburn, Regurgitation, Bloating, Lactose Intolerance, Melena, Bright Red Blood per Rectum, Other, See HPI Exam - Vitals Vital Signs: Vital Signs Temperature 97.8 F Temperature Source Temporal Artery Scan Pulse Rate [Pulse Oximeter] 69 Respiratory Rate 18 Blood Pressure [Left Arm] 149/69 Pulse Ox 97 Oxygen Delivery Method Room Air Height 5 ft 7 in Weight 196 lb 4.8 oz - General General Appearance: No Acute Distress, Cooperative - Respiratory Respiratory Exam: POSITIVE: Clear to Auscultation - Bilaterally, Breathing Non Labored, Normal To Percussion, Normal to Percussion and Palpation - Cardiovascular Cardiovascular Exam: POSITIVE: RRR, No Murmur, No Clicks, No Gallops, No Rubs, PMI Non-Displaced - GI/Abdominal GI/Abdominal Exam: POSITIVE: Normal Bowel Sounds, Non Tender, Non Distended, Soft, No Masses, No Hepatomegaly, No Splenomegaly, No Organomegaly - Extremities Extremities Exam: POSITIVE: No Clubbing Present, No Edema Present Results - Labs CBC and BMP: 08/22/18 11:10 08/22/18 11:10 Assessment and Plan - Assessment / Plan Additional Assessment/Plan Details: #1 right hip fracture discussed with Dr. Momo De La Curz he will be taken him to surgery in the morning. Continue his usual meds from home. We'll insert Tolentino catheter for mobility patient must have some retention since he is already out thousand plus cc. Morphine for pain control IV fluids for hydration patient agrees and understands
[2018-08-22] MEDS: ASPIRIN EC 81 MG TABLET PO SCH (15:19)
[2018-08-22] MEDS: Lactated Ringers 1,000 ML PRIMARY IV SCH ×2 (15:19→22:30)
--- NOTE | 2018-08-22 15:20 | DI ---
XR HIP COMPLETE MIN 2VW U/L 08/22/2018 11:29 AM History: [facility] [place] ^fall, rotation, shortening Comparison: CT abdomen/pelvis 08/16/2017. Findings: AP view of the pelvis and AP/crosstable lateral views of the right hip demonstrate a commin uted intertrochanteric fracture of the right proximal femur. There is a minimally displaced fracture fragment at the level of the lesser trochanter. There is no significant angulation of the fracture fr agments. Early degenerative changes of the bilateral hips are noted. There are degenerative changes o f the lumbar spine. The soft tissues are unremarkable. Impression: 1. Comminuted intertrochanteric fracture of the right proximal femur with a minimally displaced fract ure fragment at the level of the lesser trochanter. 2. Early bilateral hip joint osteoarthritis.
--- NOTE | 2018-08-22 15:44 | CONSULT ---
Consult Note - Consult Reason for Consult: PreOp Consulation : Ortho Primary Care Provider: Pawan Leahy MD - History of Present Illness History of Present Illness: Jossue is a pleasant 63-year-old male who presents with a stable right intertrochanteric hip fracture. This was sustained in early this morning after falling at his house. Patient lives alone. He has had lymphoma in the past but told me that recently he was given a clear bill of health for his lymphoma. He has expected discomfort. A CAT scan was obtained today showing better detail of the fracture. Patient is currently admitted to the floor with Dr. Gomez as his admitting physician. Patient is in need of open treatment of an intertrochanteric hip fracture with placement of a compression hip screw. I feel like the fracture is amenable to this device rather than an intramedullary device. The risks have been discussed with the patient including but not limited to infection, blood clot, nonunion, malunion, hardware failure, anesthetic complications, pneumonia, and even . The patient understands all this and agrees to proceed. Examination reveals a pleasant male lying supine. Right leg is in Puente's traction. Skin laterally appears to be intact. Not excessively overweight. X- rays and CAT scan reveal a fairly straightforward intertrochanteric hip fracture which exits just above the lesser trochanter. There is a little bit of a fracture line through the superior greater trochanter. Impression: Intertrochanteric hip fracture right side. Plan: Is to proceed with compression hip screw fixation of the fracture tomorrow morning. Risks benefits and alternatives were discussed as mentioned above and he agrees to proceed. Consent form will be signed. Past Medical History Medical History: 1. 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 2. Diabetes mellitus type II on no medications. 3. Gout. 4. Hypertension. 5. Hyperlipidemia. 6. Seizure disorder. 7. Admission for cellulitis March 2017. 8. Upper GI study in 2014 showed marked thickening of the mucosal the loops of the distal jejunum and ileum with narrowing of the caliber of the lumen. The lumen had a nodular pattern. The pattern was consistent with Crohn's disease of the adult onset type. Patient is on sulfasalazine but he doesn't know the reason for being on it. Surgical History: 1. Colonoscopy. 2. Cataract extraction. Pertinent Family History: States that his father passed on due to heart issues. His mother is alive and apparently in the [facility] at this time. Past Social History: Quit smoking over a year ago now. Drinks occasional alcohol. Lives alone. No children. Tobacco Use: Current Some Day Smoker In the Past 12 Months, Have Used or Abuse Any of the Following Substance: None Medication / Allergies Home Medications: Home Medications Medication Instructions Recorded Confirmed Type ascorbic acid (vitamin C) 500 mg 500 mg PO DAILY tab 07/12/17 08/22/18 History tablet omega-3 fatty acids-fish oil 340 1 cap PO DAILY cap 07/12/17 08/22/18 History mg-1,000 mg capsule furosemide 40 mg tablet 40 mg PO BID #180 tab 01/06/18 08/22/18 Rx potassium chloride ER 10 mEq 10 meq PO BID #180 cap 01/06/18 08/22/18 Rx capsule,extended release levetiracetam 500 mg tablet 1,000 mg PO BID #360 tab 03/18/18 08/22/18 Rx aspirin 81 mg tablet,delayed 81 mg PO DAILY 04/23/18 08/22/18 History release propranolol 60 mg tablet 60 mg PO BID #180 tab 05/26/18 08/22/18 Rx Multivitamin Tab [Thera Tab] 1 tab PO DAILY 08/22/18 08/22/18 History Vit B Comp/C/Folic/Iron/Vit E 1 tab PO DAILY 08/22/18 08/22/18 History [Vitamin B Complex Tablet] Allergies/Adverse Reactions: Allergies Allergy/AdvReac Type Severity Reaction Status Date / Time No Known Drug Allergies Allergy NOT Verified 08/22/18 11:16 APPLICABLE Exam - Vitals Vital Signs: Vital Signs Temperature 97.8 F Temperature Source Temporal Artery Scan Pulse Rate [Pulse Oximeter] 69 Respiratory Rate 18 Blood Pressure [Left Arm] 149/69 Pulse Ox 97 Oxygen Delivery Method Room Air Height 5 ft 7 in Weight 196 lb 4.8 oz Results - Labs CBC and BMP: 08/22/18 11:10 08/22/18 11:10
[2018-08-22] MEDS: Potassium Chloride Tab 10 MEQ TAB PO SCH (20:11)
[2018-08-22] MEDS: LevETIRAcetam Tab 500 MG TABLET PO SCH (20:11)
[2018-08-22] MEDS: PROPRANOLOL ER 60 MG CAPSULE PO SCH (20:12)
[2018-08-22] MEDS: FUROSEMIDE 40 MG TABLET PO SCH (20:12)
[2018-08-23 05:05] LABS: BASOPHILS # (AUTO) 0.02 10*3/UL; BASOPHILS % (AUTO) 0.4 % (0-1); EOSINOPHILS # (AUTO) 0.21 10*3/UL; EOSINOPHILS % (AUTO) 3.7 % (0-8); Hematocrit [HCT] 38.1 % (42.0-52.0); Hemoglobin [HGB] 12.5 g/dL (14.0-18.0); LYMPHOCYTES # (AUTO) 0.78 10*3/uL; MEAN CORPUSCULAR HEMOGLOBIN 26.5 PG (27-31); MEAN CORPUSCULAR HGB CONC 32.8 g/dL (33-37); MEAN CORPUSCULAR VOLUME 80.9 FL (80-90); MEAN PLATELET VOLUME 9.8 FL (7.4-12.2); MONOCYTES # (AUTO) 0.56 10*3/UL (0.3-0.8); NEUTROPHILS # (AUTO) 4.03 10*3/UL; NEUTROPHILS % (AUTO) 71.8 % (50-80); RED BLOOD COUNT 4.71 10^6/uL (4.70-6.10)
[2018-08-23 05:18] LABS: PLATELET MORPHOLOGY COMMENT NORMAL MORPHOLOGY (NORM); RBC MORPHOLOGY COMMENT NORMAL MORPHOLOGY (NORM); WBC MORPHOLOGY COMMENT NORMAL MORPHOLOGY (NORM)
[2018-08-23 05:53] LABS: BLOOD UREA NITROGEN 18 mg/dL (7-22); BUN/CREATININE RATIO 25.71 (6-20); SERUM ALBUMIN 3.3 g/dL (3.5-4.8)
[2018-08-23] MEDS: Lactated Ringers 1,000 ML PRIMARY IV SCH (06:47)
[2018-08-23] MEDS ORDERED: Magnesium Sulfate 2gm (Premix) 2 GM/50 ML BAG IV ONE (08:06)
[2018-08-23] MEDS ORDERED: MORPHINE SULFATE/PF 10 MG/10 ML AMPULE ONE (08:11)
[2018-08-23] MEDS ORDERED: BUPIVACAINE SPINAL 7.5 MG/1 ML - 2 ML IV ONE (08:11)
[2018-08-23] MEDS ORDERED: fentaNYL Inj 100 MCG/2 ML VIAL ONE (08:11)
[2018-08-23] MEDS ORDERED: MIDAZOLAM 5 MG/1 ML ONE (08:11)
[2018-08-23] MEDS ORDERED: LIDOCAINE W/ SODIUM BICARB 0.5 ML SYR ONE (08:13)
[2018-08-23] MEDS ORDERED: EPINEPHrine Inj (1:1,000) 1 mg/ml amp ONE (08:33)
[2018-08-23] MEDS ORDERED: LORazepam 2 MG/1 ML VIAL ONE (08:43)
[2018-08-23] MEDS ORDERED: PROPOFOL 10 MG/1 ML (200 MG/20 ML) VIAL IV ONE ×2 (08:44→09:57)
[2018-08-23] MEDS ORDERED: Sodium Chloride 0.9% vial 10 ML ONE ×2 (08:50→09:30)
[2018-08-23] MEDS: PROPRANOLOL ER 60 MG CAPSULE PO SCH ×2 (08:52→20:42)
[2018-08-23] MEDS ORDERED: ASCORBIC ACID Chewable 500 MG TABLET PO SCH (09:00)
[2018-08-23] MEDS: FUROSEMIDE 40 MG TABLET PO SCH ×2 (09:06→20:41)
[2018-08-23] MEDS: Potassium Chloride Tab 10 MEQ TAB PO SCH ×2 (09:06→20:42)
[2018-08-23] MEDS: ASPIRIN EC 81 MG TABLET PO SCH (09:06)
[2018-08-23] MEDS: LevETIRAcetam Tab 500 MG TABLET PO SCH ×2 (09:06→20:41)
[2018-08-23] MEDS ORDERED: ceFAZolin Inj 2gm (Premix) 2 GM/50 ML BAG IV ONE ×2 (09:28→10:45)
[2018-08-23] MEDS ORDERED: ePHEDrine Inj 50 MG/ML AMP ONE (09:30)
--- NOTE | 2018-08-23 09:59 | PDOC(PROG) ---
General Note Progress Note: Was called by Trinidad Jang RN this morning that the patient was describing to her that he thought that there was blood dripping over his high balls like a dog got shot in the blood splattered on his face he was not postictal and was coherent. I do not believe the patient had a seizure may be had a dream. I did order 2 g of magnesium, there are 2 case studies which show that the low mag can cause marked irritability of the nervous system I did discuss the case with Dr. Bazzi neurology in [place]. He stated that magnesium would definitely not hurt especially since we don't think he had a real seizure other options could be 1000 mg of IV Keppra before surgery. I did discuss this with Dr. Momo De La Cruz in the surgery suite. Apparently the magnesium was not administered since the patient got taken down to surgery. Dr. Momo De La Cruz is aware of all the above since I went down there personally to tell him.
[2018-08-23] MEDS ORDERED: TRANEXAMIC ACID 1,000 MG / 10 ML VIAL ONE (10:03)
[2018-08-23] MEDS ORDERED: Sodium Chloride 0.9% 500 ML ONE (10:26)
[2018-08-23] MEDS ORDERED: Lactated Ringers 1,000 ML PRIMARY IV ONE (10:33)
[2018-08-23 11:22] LABS: BILIRUBIN,URINE NEGATIVE (NEG); CLARITY,URINE CLEAR (CLEAR); COLOR,URINE YELLOW (Y); GLUCOSE, URINE (UA) NEGATIVE (NEG); OCCULT BLOOD,URINE SMALL (NEG); PROTEIN,URINE 30 mg/dl (NEG)
[2018-08-23 11:27] LABS: SQUAMOUS EPITHELIAL CELL,UR RARE; URINE CRYSTALS RARE; URINE SAMPLE TYPE PEE BAG COLLECTION
--- NOTE | 2018-08-23 11:51 | ORTHO.OP ---
Surgery Date: 08/23/18 Preoperative Diagnosis: Right intertrochanteric hip fracture Postoperative Diagnosis: Same Procedure: Open treatment right intertrochanteric hip fracture using a sliding compression hip screw (Nila versa fracture) Surgeon: Momo De La Cruz MD Hand Laster: MIRIAM Gonzalez Anesthesia Provider: Reina Vega CRNA Anesthesia Type: Regional Estimated Blood Loss (mL): 150 Fluids: 1300 mL of crystalloid. Complications: None. Operative Summary: Awakened and taken to recovery room in stable condition.
[2018-08-23] MEDS ORDERED: MORPHINE SULFATE 2 MG/1 ML IVP PRN (12:19)
[2018-08-23] MEDS ORDERED: ONDANSETRON 4 MG/2 ML VIAL IVP PRN ×2 (12:19)
[2018-08-23] MEDS ORDERED: DOCUSATE 100 MG CAPSULE PO PRN (12:19)
[2018-08-23] MEDS ORDERED: ACETAMINOPHEN 325 MG TABLET PO PRN (12:19)
[2018-08-23] MEDS ORDERED: CALCIUM CARBONATE 500 MG (TUMS) CHEWABLE TABLET PO PRN (12:19)
--- NOTE | 2018-08-23 12:19 | CRNA.PROCE ---
Central Neuraxis Block Placemt - - Safety Measures: Time Out Taken, Site Verified - - Type of Block: Subarachnoid Reason for Block: Surgical Moniters Used During Block: EKG, SPO2, NIBP Sedation Used - Enter Amount Used in Comment Field: Midazolam (mg): Yes (1), Fentanyl (mcg): Yes (100), Other Sedation: Yes (2mg Ativan) Positioning: Sitting Skin Prep Used: ChloroPrep Draped: Yes Skin Infiltration - Enter Amount Used in Comment Field: 1% Xylocaine with Bicarb (mL): Yes (05cc), 1% Xylocaine (mL): Yes (1cc) Spinal Needle Used: 22 Qwincke (21g introducer with a 25g sprotte) Local Anesthetic - Enter Amount Used in Comment Field: 0.75 % Bupivacaine with D extrose (ml): Yes (2cc) Additive Used - Enter Amount Used in Comment Field: Preservative Free Morphine (mg): Yes (.15), Epinephrine 1:1000 Needle Rinse (mL): Yes Bioclusive Dressing Applied: No Anesthesia Time - Other Weight: 88.989 kg Height: 5 ft 7 in Body Mass Index (BMI): 30.7
--- NOTE | 2018-08-23 12:20 | CRNA.PROGR ---
Anesthesia Time - Procedure/Recovery Time Start Date: 08/23/18 Anesthesia : Time In: 09:41 Anesthesia : Time Out: 12:14 - Block Time Start Date: 08/23/18 PreOp Block : Time In: 09:10 PreOp Block : Time Out: 09:32 - Other Weight: 88.989 kg Height: 5 ft 7 in Body Mass Index (BMI): 30.7 Physical Status: P3 Anesthesia Type: MAC
--- NOTE | 2018-08-23 13:05 | DI ---
RIGHT HIP, 08/23/2018 12:19 PM: Clinical History: Right hip fracture. Post operative right hip fixation. Previous Exam: None at this facility. Views: AP and frog lateral. Femoral Head/Neck Junction: Status post ORIF of an intertrochanteric right hip fracture. Alignment an d position are anatomic. Acetabulum: Non-dysplastic. No acetabular overcoverage. No retroversion. Hip Joint Space: Mild narrowing. Reading: Status post ORIF of the right intertrochanteric hip fracture. Alignment and position are anatomic.
[2018-08-23] MEDS: D5-1/2NS + 20mEq KCL 1,000 ML PRIMARY IV SCH (13:18)
[2018-08-23] MEDS ORDERED: ACETAMINOPHEN 500 MG TABLET PO ONE (16:38)
--- NOTE | 2018-08-23 18:14 | DI ---
CT ANGIOGRAM OF THE CHEST, 08/23/2018 4:41 PM : Clinical History: Postop fever. Previous Exam: 08/16/2017. Technique: Scans from base of neck to lung bases with IV contrast. Bolus tracking protocol was used f or timing the injection. Non-MIPS and MIPS sagittal/coronal images generated. IV Contrast: 75 mL of Isovue 300. Base of Neck: Normal. Nodes: Normal axillary, supraclavicular, mediastinal, and hilar lymph nodes. Heart: Normal. No coronary artery calcifications. Aorta: Mild ectasia of the ascending aorta. No aneurysm or dissection. Normal descending aorta. Pulmonary Arteries: Normal. No pulmonary emboli or infarcts; no pulmonary hypertension. Lungs: No infiltrates. There is an indwelling port inserted from the right subclavian route and the c atheter tip is just above the right atrium. Effusion(s): None. Nodules: None. Bony Structures: Normal visualized portions of ribs, sternum, right scapula, clavicles, and shoulders . There is a fracture of the left scapular spine but the margins are smooth and sclerotic without sof t tissue swelling consistent with an old fracture. No compression fractures. Osteoporosis without coreen dence of blastic or lytic bony metastases. Limited Upper Abdomen: Normal adrenal glands. Splenomegaly with an accessory spleen. Normal limited v iews of liver and pancreas. READIN. Normal CTA of the chest. There are no pulmonary emboli or pulmonary infarcts. 2. No acute infiltrate or effusion. 3. Osteoporosis without evidence of blastic or lytic metastases. Presumed old fracture of the left s capular spine. 4. Splenomegaly.
[2018-08-23] MEDS: ceFAZolin Inj 2gm (Premix) 2 GM/50 ML BAG IV SCH (18:30)
[2018-08-23] MEDS ORDERED: IBUPROFEN 800 MG TABLET PO ONE (20:05)
[2018-08-23] MEDS: DOCUSATE 100 MG CAPSULE PO SCH (20:42)
[2018-08-24] MEDS: D5-1/2NS + 20mEq KCL 1,000 ML PRIMARY IV SCH ×2 (00:14→16:53)
[2018-08-24] MEDS: ceFAZolin Inj 2gm (Premix) 2 GM/50 ML BAG IV SCH (00:30)
[2018-08-24 05:15] LABS: BASOPHILS # (AUTO) 0.02 10*3/UL; BASOPHILS % (AUTO) 0.3 % (0-1); EOSINOPHILS # (AUTO) 0.34 10*3/UL; EOSINOPHILS % (AUTO) 5.2 % (0-8); Hematocrit [HCT] 35.3 % (42.0-52.0); Hemoglobin [HGB] 11.3 g/dL (14.0-18.0); LYMPHOCYTES # (AUTO) 0.67 10*3/uL; MEAN CORPUSCULAR HEMOGLOBIN 26.7 PG (27-31); MEAN CORPUSCULAR VOLUME 83.3 FL (80-90); MONOCYTES # (AUTO) 0.62 10*3/UL (0.3-0.8); MONOCYTES % (AUTO) 9.5 % (5-15); NEUTROPHILS # (AUTO) 4.85 10*3/UL; NEUTROPHILS % (AUTO) 74.5 % (50-80); RED BLOOD COUNT 4.24 10^6/uL (4.70-6.10)
[2018-08-24 05:20] LABS: PLATELET MORPHOLOGY COMMENT NORMAL MORPHOLOGY (NORM); RBC MORPHOLOGY COMMENT NORMAL MORPHOLOGY (NORM); WBC MORPHOLOGY COMMENT NORMAL MORPHOLOGY (NORM)
[2018-08-24 05:36] LABS: BLOOD UREA NITROGEN 18 mg/dL (7-22); BUN/CREATININE RATIO 25.71 (6-20)
[2018-08-24] MEDS: Esomeprazole DR 20mg Capsule PO SCH (06:32)
[2018-08-24] MEDS: LevETIRAcetam Tab 500 MG TABLET PO SCH ×2 (08:27→21:03)
[2018-08-24] MEDS: FUROSEMIDE 40 MG TABLET PO SCH ×2 (08:28→21:01)
[2018-08-24] MEDS: PROPRANOLOL ER 60 MG CAPSULE PO SCH ×2 (08:28→21:01)
[2018-08-24] MEDS: Potassium Chloride Tab 10 MEQ TAB PO SCH ×2 (08:28)
[2018-08-24] MEDS: DOCUSATE 100 MG CAPSULE PO SCH ×2 (08:28→21:02)
[2018-08-24] MEDS: ASCORBIC ACID Chewable 500 MG TABLET PO SCH (08:28)
[2018-08-24] MEDS: Multivitamin Tab 1 TAB PO SCH (08:28)
[2018-08-24] MEDS ORDERED: VIT B COMP PO SCH (09:00)
[2018-08-24] MEDS ORDERED: FOLIC PO SCH (09:00)
[2018-08-24] MEDS ORDERED: ASPIRIN EC 81 MG TABLET PO SCH (09:00)
[2018-08-24] MEDS ORDERED: [UNRECOGNIZED DRUG - OTHER] PO SCH (09:00)
[2018-08-24] MEDS ORDERED: VIT E PO SCH (09:00)
[2018-08-24] MEDS ORDERED: IRON PO SCH (09:00)
--- NOTE | 2018-08-24 09:58 | PDOC(PROG) ---
Interval History: Patient is doing well sitting in a chair complaints no chest pain nausea vomiting no fever today. Objective : Data - Labs CBC and BMP: 08/24/18 05:00 08/24/18 05:00 Objective : Exam - General General Appearance: Cooperative - Head Head Exam: Normal Inspection, Normocephalic, Atraumatic - ENT ENT Exam: Normal Exam, Normal External Ear Exam, Normal Oropharynx, TM's Normal Bilaterally, Mucous Membranes Moist - Respiratory Respiratory Exam: Clear to Auscultation - Bilaterally, Breathing Non Labored, Normal To Percussion, Normal to Percussion and Palpation - Cardiovascular Cardiovascular Exam: RRR, No Murmur, No Clicks, No Gallops, No Rubs, PMI Non- Displaced - GI/Abdominal GI/Abdominal Exam: Normal Bowel Sounds, Non Tender, Non Distended, Soft, No Masses, No Hepatomegaly, No Splenomegaly, No Organomegaly Assessment and Plan - Patient Problems (1) Hip fracture Current Visit: Yes Status: Acute Comment: Postop day one patient had a fever last night. I believe it's postop related. I did check blood cultures CT scan of the chest blood work no signs of infection patient is back to his normal self today with no fever was hydrated I stopped the D5 half-normal saline. Given him potassium replacement defer to PT OT postop pain and anticoagulation to Dr. De La Crzu Code(s): S72.009A - Fracture of unspecified part of neck of unspecified femur, i nitial encounter for closed fracture (2) Hypokalemia Current Visit: Yes Status: Acute Comment: Replace 40 twice a day he is also on 10 day from home that is okay Code(s): E87.6 - Hypokalemia
[2018-08-24] MEDS: POTASSIUM CHLORIDE 20 MEQ TAB PO SCH ×3 (10:15→17:07)
--- NOTE | 2018-08-24 12:49 | ORTHO.PROG ---
Last Taken Vital Signs: Vital Signs - Last Taken Temperature 99.1 F 08/24/18 12:10 Pulse Rate 87 08/24/18 12:10 Respiratory Rate 20 08/24/18 12:10 Blood Pressure 132/62 08/24/18 12:10 Pulse Ox 92 08/24/18 12:10 Subjective: Patient is lying in bed comfortably. Had a temperature spike yesterday afternoon. Was sent for a CT angiogram which was negative for blood clot. No respiratory difficulties reported. Not reporting any pain. Has not taken any pain medicine. Got up in therapy this morning. Objective: Vital signs stable. T max 99.1. Hemoglobin and hematocrit 11 and 35 Right hip incision clean and dry. Right lower extremity is chronically externally rotated due to hemiparesis on the right side. Patient told me that. His right upper extremity also does not work normally due to prior stroke. Postoperative x-rays yesterday show excellent position of the compression hip screw. Assessment: Impression: Stable postop day 1 from compression hip screw to the right hip for intertrochanteric fracture Plan: Plan is to put him on baby aspirin twice a day. We'll order some compression pumps for his legs. He needs to use his incentive spirometer.
[2018-08-24] MEDS: oxyCODONE/APAP 7.5/325 Tab 1 TAB TAB PO PRN ×2 (17:18→21:00)
[2018-08-24] MEDS: ASPIRIN 81 MG (BABY) CHEWABLE TABLET PO SCH (21:01)
[2018-08-25] MEDS: oxyCODONE/APAP 7.5/325 Tab 1 TAB TAB PO PRN ×4 (04:27→20:15)
[2018-08-25 05:05] LABS: BASOPHILS # (AUTO) 0.02 10*3/UL; BASOPHILS % (AUTO) 0.2 % (0-1); EOSINOPHILS # (AUTO) 0.27 10*3/UL; EOSINOPHILS % (AUTO) 2.8 % (0-8); Hematocrit [HCT] 38.5 % (42.0-52.0); Hemoglobin [HGB] 12.5 g/dL (14.0-18.0); LYMPHOCYTES # (AUTO) 0.83 10*3/uL; MEAN CORPUSCULAR HEMOGLOBIN 26.8 PG (27-31); MEAN CORPUSCULAR HGB CONC 32.5 g/dL (33-37); MEAN CORPUSCULAR VOLUME 82.6 FL (80-90); MEAN PLATELET VOLUME 10.2 FL (7.4-12.2); MONOCYTES % (AUTO) 8.2 % (5-15); NEUTROPHILS % (AUTO) 79.9 % (50-80); RED BLOOD COUNT 4.66 10^6/uL (4.70-6.10)
[2018-08-25 05:57] LABS: BLOOD UREA NITROGEN 15 mg/dL (7-22); BUN/CREATININE RATIO 18.75 (6-20)
[2018-08-25] MEDS: Esomeprazole DR 20mg Capsule PO SCH (05:58)
[2018-08-25] MEDS: POTASSIUM CHLORIDE 20 MEQ TAB PO SCH ×2 (06:00→17:25)
[2018-08-25 06:23] LABS: PLATELET MORPHOLOGY COMMENT NORMAL MORPHOLOGY (NORM); RBC MORPHOLOGY COMMENT NORMAL MORPHOLOGY (NORM); WBC MORPHOLOGY COMMENT NORMAL MORPHOLOGY (NORM)
[2018-08-25] MEDS: FUROSEMIDE 40 MG TABLET PO SCH ×2 (09:00→20:15)
[2018-08-25] MEDS ORDERED: BISACODYL 5 MG TABLET PO PRN (09:00)
[2018-08-25] MEDS: PROPRANOLOL ER 60 MG CAPSULE PO SCH ×2 (09:00→20:15)
[2018-08-25] MEDS: Multivitamin Tab 1 TAB PO SCH (09:00)
[2018-08-25] MEDS: DOCUSATE 100 MG CAPSULE PO SCH ×2 (09:01→20:15)
[2018-08-25] MEDS: LevETIRAcetam Tab 500 MG TABLET PO SCH ×2 (09:01→20:15)
[2018-08-25] MEDS: ASCORBIC ACID Chewable 500 MG TABLET PO SCH (09:01)
[2018-08-25] MEDS: ASPIRIN 81 MG (BABY) CHEWABLE TABLET PO SCH ×2 (09:02→20:15)
--- NOTE | 2018-08-25 11:22 | PTI REPORT ---
Thank you for the referral of Jossue Garland. He was seen on 08/24/18 for an inpatient evaluation status post right hip fracture. SUBJECTIVE: The patient is a 63-year-old male who presented to the ER after having a fall at his home. The patient states that he stood up and fell onto his right hip. The patient went in for surgical repair for his right hip fracture yesterday. The patient has orders to use a walker for the first 6-8 weeks and for partial weight-bearing on the right lower extremity. 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 The patient states that he lives here in [place] and lives independently. The patient states that prior to his fall he was not using any type of assistive device for mobility and was getting around well. The patient states he has had no other falls in the last three months. The patient states that he does have three stairs to get into his home and he does have 22 steps to his basement, but he does not go into his basement often as he just has his laundry and some books down there. PAST MEDICAL HISTORY: Past medical history can be found in the patient's medical record. OBJECTIVE FINDINGS: General observations: The patient was alert and oriented to setting upon PT arrival. The patient was sitting up in chair. He did have an IV and a Tolentino in place and also does have a Provera dressing over his right hip. Transfers: The patient required mod verbal cueing in order to get him to scoot toward the edge of the chair. Once at the edge of the chair, the patient required mod assist x2 in order to go from a seated to standing position. The patient demonstrated poor initial standing balance. Once he was able to place his left hand onto the walker, he was able to steady himself a little bit better. He did require some assistance with his right hand in order to help open it up to grab onto the walker. The patient was able to perform a standing to seated transfer with help placing his left hand back toward the bed and cueing to kick out his right lower extremity. Ambulation: Once he had both hands placed on the walker, the patient was instructed on partial weight-bearing on the right and he ambulated from the chair to the bed, approximately 10 feet, turning toward his left side as that is his stronger side secondary to his CVA many years ago. The patient required mod cueing when ambulating with the walker. Once we were in front of the bed, the patient was able to side step for a couple of feet to get toward the head of the bed and then scoot back toward the edge of the bed with max cueing. Bed mobility: Once the patient was seated edge of bed, he required cueing in order to scoot back into the bed. The patient required mod assist x2 in order to go from seated edge of bed to supine. Once in a supine position, the patient required max verbal cueing for bed mobility and assistance to help straighten out his right lower extremity. ASSESSMENT: The patient has fair rehab potential secondary to his age and past medical history. Problem List: Patient is post op right hip fracture Right hip pain Decreased mobility Decreased strength Short-Term Goals: To be met by discharge from inpatient: Patient will be able to transfer from bed to stand safely and independently. Patient will be able to ambulate at least 100 feet with walker safely. Patient will be able to ascend and descend at least 5 stairs with use of walker safely and independently. Long-Term Goals: To be met following discharge from inpatient: Patient may be seen by outpatient physical therapy in order to further work on his strengthening and functional mobility. TREATMENT PLAN: Patient will be seen B.I.D during the week and one time per day over the weekend as an inpatient to address the above goals and objectives. INITIAL TREATMENT: Treatment today consisted of the initial evaluation. Following treatment the patient was left in bed with bed alarm set and call light within reach. [facility] CENTERLuis
--- NOTE | 2018-08-25 11:58 | PT AM DAY ---
Diagnosis : Right Hip Fracture AM - Physical Therapy S: The patient states he is doing okay this morning. At rest in his chair he reports a pain level of 0/10 (0=no pain, 10=worst pain) in the right hip. He is agreeable to try to do some standing and walking. O: The patient participated with occupational therapy prior to physical therapy. The patient did require mod assist x1 in order to sit up in his chair and scoot towards the edge of his chair. Once seated at the edge of his chair with hand hold assist on the left, the patient demonstrated fair seated balance. The patient then required mod assist of two to go from seated to standing position. He also required verbal cues with sit to stand transfer. The patient demonstrated poor initial balance. Once he was able to grab onto the walker with his left hand and with assist of two, he was able to steady his balance. He did require using his left hand to help open up his right hand to grab onto the walker. When the patient had hand hold assist x2 on the walker, he was doing well. We did try to verbally cue and provide tactile cueing to get the patient to ambulate. The patient was unable to lift his right lower extremity today in order to ambulate forward. We did make multiple attempts but the patient was not able to do so and was getting fatigued and requested to sit back down. The patient was able to take a couple little steps backwards and to the right in order to square up with the chair and performed a stand to seated transfer with assist. Once seated edge of the chair, the patient was able to scoot himself back into the chair without assistance. The patient was left in chair with call light within reach and chair alarm set. A: The patient had a harder time trying to ambulate this morning as compared to yesterday when he was able to ambulate from the chair to the bed. Despite max cueing, he was unable to bring his right lower extremity up and complained of an increase in hip pain in the standing position. The patient did well with his chair mobility scooting himself back, but does have a difficult time when he is back in the chair, pulling himself toward the edge of his chair. With transfers, the patient is requiring mod assist of two. P: Continue seeing patient BID during the week and one time per day over the weekend for transfers, ambulation, and range of motion/strengthening exercises. MTDD
--- NOTE | 2018-08-25 13:16 | ORTHO.PROG ---
Last Taken Vital Signs: Vital Signs - Last Taken Temperature 97.3 F 08/25/18 11:51 Pulse Rate 75 08/25/18 11:51 Respiratory Rate 12 08/25/18 11:51 Blood Pressure 110/71 08/25/18 11:51 Pulse Ox 92 08/25/18 11:51 Subjective: Patient lying in bed. Not reporting much pain. Took a few pain pills since last evening. Got up with physical therapy this morning. Objective: Vital signs stable patient afebrile. Hemoglobin and hematocrit 12 and 38. Right hip incision dressing clean and dry. Leg remains slightly externally rotated from prior stroke. Assessment: Impression: Stable postop day 2 from right hip fracture with compression hip screw fixation. Plan: Plan: I will talk with Dr. Au about getting the patient's Tolentino catheter out. Try to get him a platform attachment for the walker because of his right upper extremity paresis. Continue current management.
--- NOTE | 2018-08-25 13:56 | PDOC(PROG) ---
Date of Service: 08/25/18 Time of Service: 13:54 Interval History: No completes of chest pain, short is breath, nausea or vomiting, or constipation. States pain is controlled. Does not normally have catheter in his bladder. Objective : Data - Labs CBC and BMP: 08/25/18 04:30 08/25/18 04:30 Objective : Exam - General General Appearance: No Acute Distress, Cooperative Additional General Exam Details: Vital Signs - Last Taken Temperature 97.3 F 08/25/18 11:51 Pulse Rate 75 08/25/18 11:51 Respiratory Rate 12 08/25/18 11:51 Blood Pressure 110/71 08/25/18 11:51 Pulse Ox 92 08/25/18 11:51 - Eye Eye Exam: No Scleral Icterus - ENT ENT Exam: Mucous Membranes Moist - Neck Neck Exam: JVP is not Raised - Respiratory Respiratory Exam: Clear to Auscultation - Bilaterally, Breathing Non Labored - Cardiovascular Cardiovascular Exam: RRR, No Murmur, No Clicks, No Gallops, No Rubs, No JVD - GI/Abdominal GI/Abdominal Exam: Normal Bowel Sounds, Non Tender, Non Distended, Soft - Extremities Extremities Exam: No Clubbing Present, No Edema Present, No Cyanosis Present Additional Extremities Exam Details: Incision is dressed, clean, dry, intact - Neurological Neurological Exam: Alert, Oriented x 3, No Facial Droop, Speech Intact / Clear Assessment and Plan - Patient Problems (1) Hip fracture Current Visit: Yes Status: Acute Code(s): S72.009A - Fracture of unspecified part of neck of unspecified femur, initial encounter for closed fracture Qualifiers: Encounter type: initial encounter Fracture type: closed Laterality: right Qualified Code(s): S72.001A - Fracture of unspecified part of neck of right femur, initial encounter for closed fracture (2) Hypokalemia Current Visit: Yes Status: Acute Code(s): E87.6 - Hypokalemia (3) Hypertension Current Visit: Yes Status: Chronic Code(s): I10 - Essential (primary) hy pertension Qualifiers: Hypertension type: essential hypertension Qualified Code(s): I10 - Essential (primary) hypertension (4) History of CVA (cerebrovascular accident) Current Visit: Yes Status: Acute Code(s): Z86.73 - Personal history of trans ient ischemic attack (TIA), and cerebral infarction without residual deficits - Assessment / Plan Additional Assessment/Plan Details: Continue PT and OT. No changes for antihypertensive medications. Swing bed evaluation. DVT prophylaxis as per orthopedics.
--- NOTE | 2018-08-25 17:02 | PT.PROG ---
Progress Note Progress Note: S. Patient stated that he is tired this afternoon, however agreed to stand up and be fitted for the platform walker. O. Patient stood at the edge of the bed x3, then stepped up on the scale then stood x2 for nursing to clean and check his backside. Patient was left at the edge of bed with nursing. A. Patient tolerated sit to stands fair, however required mod assist x 2, Patient would continue to benefit from skilled therapy to increase strength, mobility and safety at this time. P. Continue POC.
[2018-08-26] MEDS ORDERED: LIDOCAINE HCL 2 % 10 ML JELLY URO-JECT TOPICAL PRN (00:15)
[2018-08-26] MEDS: oxyCODONE/APAP 7.5/325 Tab 1 TAB TAB PO PRN ×3 (03:21→11:41)
[2018-08-26] MEDS: Esomeprazole DR 20mg Capsule PO SCH (07:05)
[2018-08-26] MEDS: POTASSIUM CHLORIDE 20 MEQ TAB PO SCH (07:05)
[2018-08-26 07:07] VITALS: RESP 20; O2SAT 90
[2018-08-26] MEDS: FUROSEMIDE 40 MG TABLET PO SCH (09:00)
[2018-08-26] MEDS: LevETIRAcetam Tab 500 MG TABLET PO SCH (09:00)
[2018-08-26] MEDS: ASPIRIN 81 MG (BABY) CHEWABLE TABLET PO SCH (09:00)
[2018-08-26] MEDS: Multivitamin Tab 1 TAB PO SCH (09:00)
[2018-08-26] MEDS: ASCORBIC ACID Chewable 500 MG TABLET PO SCH (09:00)
[2018-08-26] MEDS: PROPRANOLOL ER 60 MG CAPSULE PO SCH (09:00)
[2018-08-26] MEDS: DOCUSATE 100 MG CAPSULE PO SCH (09:01)
--- NOTE | 2018-08-26 10:22 | OT.PROG ---
Progress Note Progress Note: S: pt stated that he wanted to get back into bed but agreed to therapy services first. O: tx consisted of seated dressing in chair where pt used funding coordinator to kris LE shorts with MIN A. pt then completed bed mobility from EOB to supine with MIN A for LE mobility and positioning and use of trapeze bar. A: pt was MAX A for catheter management during dressing tasks. P: continue POC
[2018-08-26] MEDS ORDERED: TAMSULOSIN 0.4 MG CAPSULE PO ONE (10:47)
--- NOTE | 2018-08-26 11:21 | OTI REPORT ---
Thank you for the referral of Jossue Garland. He was seen on 08/25/18 for an occupational therapy inpatient evaluation status post right hip fracture. SUBJECTIVE: The patient is a 63-year-old male who is being seen today secondary to having a right hip surgery. He is toe touch weight-bearing. Prior to admission the patient's previous history reveals that he had a stroke when he was [id number]. His right side was affected and he has spasticity in the right upper extremity as well as the right lower extremity. The patient reports that he fell somehow but he doesn't remember. The patient's ability to recall history is variable. He does demonstrate some short term memory loss during interview. He does report that he lives by himself. He does have quite a few stairs in his home. The patient's goal is to get back home. PAST MEDICAL HISTORY: Past medical history can be found in the patient's medical record. OBJECTIVE FINDINGS: Transfers: The patient requires max assist for functional transfers. Activities of daily living: While sitting in chair, we educated the patient on hyperion analyst, sock aide, bath sponge, and long handled shoe horn. He practiced using the hyperion analyst to doff socks which he was able to do with his left hand. He needed min assist to don the sock on the sock aide. Once he was able to get it positioned on his left foot, he was able to pull the sock up with increased time. On the right foot it was more difficult as he is not able to move his foot on his own. He did need assistance moving his foot but was able to pull the sock up using bilateral upper extremities. The patient was also able to don pants with min assist. The patient is not able to keep balance in order to pull pants from knee to waist line. The patient requires max assist for most ADLs. Range of motion: Left upper extremity range of motion is within normal limits. In the right upper extremity the patient does demonstrate spasticity. He was able to go from 0 to 60 degrees of shoulder flexion. Elbow flexion/extension was 50% of normal range. He does have a slightly contracted/flexed hand; however, he is able to slightly extend and position the hand, for instance around a walker if needed. Strength: Strength in the left upper extremity is 4/5 in the shoulder and 4+/5 in the elbow and wrist. Pain: The patient rates his pain as a 7/10 on the verbal analog scale (0=no pain, 10=worst pain). ASSESSMENT: The patient will more than likely require swingbed status or 24-hour care longer term until he is able to bear more weight on his right leg. As of today we will definitely need to continue with therapy for upper extremity strengthening and to continue to work on his ADL skills. Problem List: Decreased ability to perform ADLs Decreased ability to complete functional activities Increased pain Decreased cognition Short-Term Goals: To be met by discharge from inpatient: Patient will be able to [] Patient will be able to [] Patient will be able to [] Patient will be able to [] Long-Term Goals: To be met following discharge from inpatient: Patient will be able to [] Patient will be able to [] TREATMENT PLAN: Patient will be seen B.I.D during the week and one time per day over the weekend as an inpatient to address the above goals and objectives. INITIAL TREATMENT: Treatment today consisted of the initial evaluation. The patient completed a transfer to the chair with max assist. While sitting in chair the patient was educated in and practiced using adaptive devices for dressing lower extremities. The patient was issued a hyperion analyst, sock aide, shoe horn, and bath sponge. ELIEZER
[2018-08-26 11:29] VITALS: BP 102/59; TEMP 98.9
--- NOTE | 2018-08-26 11:36 | OT PM DAY ---
Diagnosis : Right Hip Fracture PM - Occupational Therapy S: The patient reports he had just gotten back to bed. O: Today the patient performed therapeutic exercises and functional activities including yellow theraband resisted biceps curls, internal/external rotation, triceps, and shoulder extension on the left side x20 repetitions. On the right side he was able to do biceps, triceps, and internal rotation x15 repetitions. He did transfer from supine to sit with max assist and transferred from sit to stand. He then transferred back into bed with max assist x2. A: The patient is having a lot of difficulty moving lower extremities. He would benefit from continued ADLs and functional transfers. It takes the patient a lot of increased time to complete transfers. We encouraged as much independence as possible, but he is having a lot of difficulty moving his right lower extremity on his own. P: Continue seeing patient BID during the week and one time per day over the weekend for upper extremity strengthening, ADLs, and overall functional mobility. MTDD
--- NOTE | 2018-08-26 11:39 | PT.PROG ---
Progress Note Progress Note: S. Patient stated that he is very tired this morning however agreed to walk to the bed. O. Patient ambulated 5 feet from the chair to the bed where he performed seated long arc quads, heel toe raises, and marches all x 10 on the left leg and 5 on the right. Patient was left in bed with alarm and call light. A. Patient tolerated exercise and ambulation fair, he continues to require min to mod assist x 2 for transfers and ambulation, he would continue to benefit from skilled therapy to increase strength, mobility and safety. P. continue POC.
--- NOTE | 2018-08-26 12:22 | DCSUMMARY ---
Hospitalization Summary Admit Date: 08/22/2018 Discharge Date: 08/26/18 Primary Diagnosis:: right hip fracture status post ORIF Hospital Course: This is a very pleasant 63-year-old male who presented here on 08/22/2018 after a mechanical fall. He has had a history of a stroke with right sided partial hemiparesis, antalgic gait, amongst other medical problems. He is admitted, and orthopedics was consulted and the patient had a right ORIF done. See Dr. De La Cruz's notes regarding the procedure. Postoperatively, the patient is been managed with PT and OT, pain control with opiates, and DVT prophylaxis as per orthopedics. In terms of his medical issues, he developed urinary retention which we had to replace a Tolentino catheter. I don't know if it's related to his prior history of stroke and is a neurogenic bladder ORIF this is consistent with benign prostatic hypertrophy. We evaluated the patient for swing bed and I felt most appropriate to try to do some therapy for the patient prior to his final disposition which we are hoping will be back home. I spoke with his cousin regarding his situation and she is his medical power of trial attorney. She agreed with the plan as well. Today, no complaints of chest pain, shortness breath, nausea or vomiting. He stated that his abdomen felt fine. He stated that his pain in his hip was controlled particularly when he was not moving. He did require replacement of Tolentino catheter overnight due to urinary retention (acute). Assessment and Plan: 1. As per discharge assessments noted 2. Disposition: Patient is discharged to the swing bed 3. Condition on discharge, stable and improved. 4. Diet: regular diet 5. Activities: Continue PT and OT. 6. Follow-Up: 1. Hospital service continue to manage patient's primary care. 7. Medications at the Time of Discharge: Active Medications Generic Name Dose Route Start Last Admin Trade Name Freq PRN Reason Stop Dose Admin Acetaminophen 650 mg 08/23/18 12:19 08/24/18 10:41 Tylenol PO 650 mg Q6H PRN Administration Pain or Fever Ascorbic Acid 500 mg 08/24/18 09:00 08/26/18 09:00 Vitamin C PO 500 mg DAILY SOBEIDA Administration Aspirin 81 mg 08/24/18 21:00 08/26/18 09:00 Aspirin Chewable Tab PO 81 mg BID SOBEIDA Administration Bisacodyl 10 mg 08/25/18 09:00 Dulcolax Tab PO BID PRN Constipation Calcium Carbonate 1 - 2 tab 08/23/18 12:19 Tums PO Q6H PRN Heartburn Docusate Sodium 100 mg 08/23/18 21:00 08/26/18 09:01 Colace PO 100 mg BID SOBEIDA Administration Esomeprazole Magnesium 20 mg 08/24/18 06:30 08/26/18 07:05 Nexium PO 20 mg DAILY@0630 SOBEIDA Administration Furosemide 40 mg 08/23/18 21:00 08/26/18 09:00 Lasix PO 40 mg BID SOBEIDA Administration Sodium Chloride 25 mls @ 200 mls/hr 08/23/18 12:19 Normal Saline 0.9% IV .Post Infusion PRN No Primary IV for Flush ONLY Levetiracetam 1,000 mg 08/23/18 21:00 08/26/18 09:00 Keppra Tab PO 1,000 mg BID SOBEIDA Administration Lidocaine HCl 10 ml 08/26/18 00:15 Xylocaine Uro-Ject 2% TOPICAL ONCE PRN Discomfort catheter insertion Multivitamins Therapeutic 1 tab 08/24/18 09:00 08/26/18 09:00 Thera Tab PO 1 tab DAILY SOBEIDA Administration Ondansetron HCl 4 mg 08/23/18 12:19 Zofran Inj IVP Q4H PRN NAUSEA / VOMITING Oxycodone/Acetaminophen 1 - 2 tab 08/23/18 12:19 08/26/18 11:41 Percocet 7.5/325 Tab PO 2 tab Q4H PRN Administration Pain Potassium Chloride 40 meq 08/24/18 09:00 08/26/18 07:05 Klor-Con PO 40 meq BID MEALS SOBEIDA Administration Propranolol HCl 60 mg 08/23/18 21:00 08/26/18 09:00 Inderal La PO 60 mg BID SOBEIDA Administration Tamsulosin HCl 0.4 mg 08/27/18 09:00 Flomax PO DAILY SOBEIDA 8. Time, care, counseling and coordination of care for this discharge is less than 30 minutes. Exam - Vitals Vital Signs: Vital Signs Temperature 98.9 F Temperature Source Temporal Artery Scan Pulse Rate [Pulse Oximeter] 79 Pulse Rate 69 Respiratory Rate 20 Blood Pressure [Left Arm] 102/59 Blood Pressure 108/59 Pulse Ox 90 Oxygen Flow Rate 1 Oxygen Delivery Method Room Air Height 5 ft 7 in Weight 190 lb 9.6 oz - General General Appearance: No Acute Distress, Cooperative - Eye Eye Exam: POSITIVE: No Scleral Icterus - ENT ENT Exam: POSITIVE: Mucous Membranes Moist - Neck Neck Exam: JVP is not Raised - Respiratory Respiratory Exam: POSITIVE: Clear to Auscultation - Bilaterally, Breathing Non Labored - Cardiovascular Cardiovascular Exam: POSITIVE: RRR, No Murmur, No Clicks, No Gallops, No Rubs, No JVD - GI/Abdominal GI/Abdominal Exam: POSITIVE: Normal Bowel Sounds, Non Tender, Non Distended, Soft - Extremities Extremities Exam: POSITIVE: No Clubbing Present, No Edema Present, No Cyanosis Present - Neurological Neurological Exam: POSITIVE: Alert, No Facial Droop, Speech Intact / Clear Additional Neurological Exam Details: Has expressive aphasia and right-sided hemiparesis. Data Peritnent Studies: 08/22/18 08/22/18 08/22/18 11:10 11:10 11:10 WBC Hgb 14.4 Hct 43.1 Plt Count PT 9.9 INR 0.97 Sodium Potassium Chloride Carbon Dioxide Anion Gap BUN Creatinine BUN/Creatinine Ratio Glucose Calculated Osmolality Calcium Magnesium 1.9 Total Bilirubin 0.8 AST 40 ALT 49 Alkaline Phosphatase 176 H Troponin I Total Protein 6.9 Albumin 4.2 Globulin 2.6 Albumin/Globulin Ratio 1.60 08/23/18 08/23/18 08/24/18 16:52 23:03 05:00 WBC Hgb Hct Plt Count PT INR Sodium Potassium Chloride Carbon Dioxide Anion Gap BUN Creatinine BUN/Creatinine Ratio Glucose Calculated Osmolality Calcium Magnesium Total Bilirubin AST ALT Alkaline Phosphatase Troponin I < 0.012 < 0.012 < 0.012 Total Protein Albumin Globulin Albumin/Globulin Ratio 08/25/18 08/25/18 04:30 04:30 WBC 9.76 Hgb 12.5 L Hct 38.5 L Plt Count 143 PT INR Sodium 139 Potassium 3.8 Chloride 105 Carbon Dioxide 24 Anion Gap 10 BUN 15 Creatinine 0.8 BUN/Creatinine Ratio 18.75 Glucose 100 Calculated Osmolality 288.0 Calcium 8.6 L Magnesium Total Bilirubin AST ALT Alkaline Phosphatase Troponin I Total Protein Albumin Globulin Albumin/Globulin Ratio Procedures: [address] [facility]. [facility] [place] [address] PH: DD: [phone] FAX: [phone] ~DIAGNOSTIC IMAGING REPORT~ Patient: Jossue Garland : 1955 Sex: M Age: 63 Exam Name: CT CTA Chest Non-Coronary [facility] Exam Date: 08/23/18 Report # : [id number] CPT Code: 96512 EMR/MR #: [id number] Ordering: JENNA YORK Admiting: JENNA YORK MD. Primary: Pawan Leahy MD Attending: JENNA YORK MD. Signed CT ANGIOGRAM OF THE CHEST, 08/23/2018 4:41 PM : Clinical History: Postop fever. Previous Exam: 08/16/2017. Technique: Scans from base of neck to lung bases with IV contrast. Bolus tracking protocol was used for timing the injection. Non-MIPS and MIPS sagittal/coronal images generated. IV Contrast: 75 mL of Isovue 300. Base of Neck: Normal. Nodes: Normal axillary, supraclavicular, mediastinal, and hilar lymph nodes. Heart: Normal. No coronary artery calcifications. Aorta: Mild ectasia of the ascending aorta. No aneurysm or dissection. Normal descending aorta. Pulmonary Arteries: Normal. No pulmonary emboli or infarcts; no pulmonary hypertension. Lungs: No infiltrates. There is an indwelling port inserted from the right subclavian route and the catheter tip is just above the right atrium. Effusion(s): None. Nodules: None. Bony Structures: Normal visualized portions of ribs, sternum, right scapula, clavicles, and shoulders. There is a fracture of the left scapular spine but the margins are smooth and sclerotic without soft tissue swelling consistent with an old fracture. No compression fractures. Osteoporosis without evidence of blastic or lytic bony metastases. Limited Upper Abdomen: Normal adrenal glands. Splenomegaly with an accessory spleen. Normal limited views of liver and pancreas. READIN. Normal CTA of the chest. There are no pulmonary emboli or pulmonary infarcts. 2. No acute infiltrate or effusion. 3. Osteoporosis without evidence of blastic or lytic metastases. Presumed old fracture of the left scapular spine. 4. Splenomegaly. Dictated By: 08/23/18 175 BILL JUAREZ MD. Signed By: 08/23/18 6371 BILL JUAREZ MD. [address] [facility] [place] [address] PH: DD: [phone] FAX: [phone] ~DIAGNOSTIC IMAGING REPORT~ Patient: Jossue Garland : 1955 Sex: M Age: 63 Exam Name: XR HIP COMPLETE MIN 2VW U/L Exam Date: 08/23/18 Report # : [id number] CPT Code: 32936 EMR/MR #: [id number] Ordering: Momo De La Cruz Admiting: JENNA YORK MD. Primary: Pawan Leahy MD Attending: EJNNA YORK MD. Signed RIGHT HIP, 08/23/2018 12:19 PM: Clinical History: Right hip fracture. Post operative right hip fixation. Previous Exam: None at this facility. Views: AP and frog lateral. Femoral Head/Neck Junction: Status post ORIF of an intertrochanteric right hip fracture. Alignment and position are anatomic. Acetabulum: Non-dysplastic. No acetabular overcoverage. No retroversion. Hip Joint Space: Mild narrowing. Reading: Status post ORIF of the right intertrochanteric hip fracture. Alignment and position are anatomic. Dictated By: 08/23/18 1254 BILL JUAREZ MD. Signed By: 08/23/18 1305 BILL JUAREZ MD. [address] [facility]. [facility] [place] [address] PH: DD: [phone] FAX: [phone] ~DIAGNOSTIC IMAGING REPORT~ Patient: Jossue Garland : 1955 Sex: M Age: 63 Exam Name: CT Lower Extremity WO Contrast Exam Date: 08/22/18 Report # : [id number] CPT Code: 29003 EMR/MR #: [id number] Ordering: Moreno Noble Admiting: JENNA YORK MD. Primary: Pawan Leahy MD Attending: JENNA YORK MD. Signed CT Lower Extremity WO Contrast 08/22/2018 12:33 PM HISTORY: [facility] DI ^fracture ^3-D recons Comparison: Right hip x-ray from earlier the same day. Procedure: Noncontrast CT images were obtained through the right hip in the axial, sagittal, and coronal planes. Findings: There is a comminuted intertrochanteric fracture of the right femur. There is only minimal displacement of the fracture fragments, most notable at the level of the lesser trochanter and the attachment of the iliopsoas tendon. Moderate edema extends proximally along the course of the tendon and muscle without formed fluid collection. There is no significant angulation of the fracture fragments. No other acute osseous abnormality is detected. There are early degenerative changes of the right hip. A corticated ossific fragment along the deep soft tissues of the lateral thigh is most likely the sequela of remote trauma. The soft tissues are otherwise unremarkable. Impression: 1. Comminuted intertrochanteric fracture as above. Dictated By: 08/22/18 1413 CORBIN NOVAK MD. Signed By: 08/22/18 1423 CORBIN NOVAK MD. Patient Problems - Patient Problem List (1) Hip fracture Current Visit: Yes Status: Acute Code(s): S72.009A - Fracture of unspecified part of neck of unspecified femur, initial encounter for closed fracture Qualifiers: Encounter type: initial encounter Fracture type: closed Laterality: right Qualified Code(s): S72.001A - Fracture of unspecified part of neck of right femur, initial encounter for closed fracture Category: Medical (2) Hypokalemia Current Visit: Yes Status: Acute Code(s): E87.6 - Hypokalemia Category: Medical (3) Hypertension Current Visit: Yes Status: Chronic Code(s): I10 - Essential (primary) hypertension Qualifiers: Hypertension type: essential hypertension Qualified Code(s): I10 - Essential (primary) hypertension Category: Medical (4) History of CVA (cerebrovascular accident) Current Visit: Yes Status: Acute Code(s): Z86.73 - Personal history of transient ischemic attack (TIA), and cerebral infarction without residual deficits Category: Medical (5) Inflammatory bowel disease Current Visit: Yes Status: Acute Code(s): K52.9 - Noninfective gastroenteritis and colitis, unspecified Category: Medical (6) Diffuse large B-cell lymphoma of extranodal site Current Visit: Yes Status: Chronic Code(s): C83.39 - Diffuse large B-cell lymphoma, extranodal and solid organ sites Category: Medical (7) 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
[2018-08-27] MEDS ORDERED: TAMSULOSIN 0.4 MG CAPSULE PO SCH (09:00)
== END 2018-08-26 14:25 | DRG 481 ==
LOC: ER 11:04 → MED/SURG 13:26 → OPS 08-23 10:08 → MED/SURG 08-23 12:30
PROVIDERS: ADMIT Internal Medicine; ATTEND Internal Medicine